=== PATIENT | female | born 1950 | race Caucasian/White ===

== ENCOUNTER → 2016-07-19 | Outpatient (CLI) | payer BC ==
[~2016-07-19] MED LIST: ACET-1311 PO; ALBUAER INH; ALPR-411 PO; AMOX875T PO; ANTI NAUSEA MED; ATOR10TA82 PO; BIOT1CAP4 PO; CALC-279 PO; CALC-338 PO; CMP/10 PO; COEN1CAP17 PO; CYAN100020 PO; DPH/ PO; DRGTP25 TD; DTR5 PO; ENOX1INJ11 SQ; ENOX60IN SQ; ESCI10TA17 PO; HYDR-5688 PO; IMD/2 PO; LVNIS80 SQ; MAGN400T6 PO; METH1TAB81 PO; MISCCAP77 PO; MULTTAB58 PO; NRN300 PO; OMEP20CA59 PO; OXYC1CAP5 PO; OXYSR10 PO; PHYT100T PO; PRED10TA PO; PSYL0.524 PO; RXC5 PO; TEMA-79 PO; ULT50 PO; VNTHFA/IN INH; WARF2.5T8 PO; WARF2TAB8 PO; WARF5TAB7; WARF5TAB7 PO
--- NOTE | 2016-07-19 12:20 | DIAGNOSTIC IMAGING REPORT ---
LEFT WRIST 4 VIEWS HISTORY: M10.9 Acute gouty [id number] COMPARISON: None. FINDINGS: The bones are osteopenic. Diffuse soft tissue swelling. Chondrocalcinosis. No acute fracture or dislocation. No bony erosions identified. Severe osteoarthritis at the first carpometacarpal joint. The scaphoid appears intact. No radiopaque foreign bodies. IMPRESSION: 1. Diffuse soft tissue swelling within the left wrist. 2. Chondrocalcinosis. 3. Osteopenia. Electronically signed by: Orlin Alfonso M.D. 07/19/2016 12:19 PM
[2016-07-19 12:26] LABS: BASO % 0.1 %; BASO ABS # 0.01 K/uL (0-0.2); COMPLETE YES; EOS % 0.7 %; HEMATOCRIT 30.1 % (37-47); IG% 0.3 %; LYMPH % 19.3 %; LYMPH ABS # 1.76 K/uL (1.2-3.4); MEAN CELL VOLUME 100.3 fL (80-100); MEAN CORPUSCULAR HEMOGLOBIN 33.7 pg (25-34); MEAN CORPUSCULAR HGB CONC 33.6 g/dl (32-36); MEAN PLATELET VOLUME 10.1 fL (7.4-10.4); MONO % 10.1 %; NEUT % 69.5 %; PLATELET COUNT 184 K/uL (130-400); WHITE BLOOD COUNT 9.14 K/uL (4.8-10.8)
[2016-07-19 13:47] LABS: BLOOD UREA NITROGEN 11 mg/dl (7-18); BUN/CREATININE RATIO 15.8 (10-20); CALCIUM 9.4 mg/dl (8.5-10.1); CARBON DIOXIDE 26 mmol/L (21-32); CHLORIDE 100 mmol/L (98-107); CREATININE 0.71 mg/dl (0.60-1.20); GLUCOSE 115 mg/dl (70-99); POTASSIUM 3.7 mmol/L (3.5-5.1); SODIUM 138 mmol/L (136-145); URIC ACID 4.3 mg/dl (2.6-7.2)
== END | disposition home or self-care (01) ==
LOC: C.RAD1850 11:21
PROVIDERS: ATTEND Internal Medicine
DX: M10.9 Gout, unspecified (principal); M11.232 Other chondrocalcinosis, left wrist; M85.80 Other specified disorders of bone density and structure, unspecified site

== ENCOUNTER → 2016-09-28 | Outpatient (CLI) | payer BC ==
[~2016-09-28] MED LIST changes: -ATOR10TA82 PO; +ATOR10TA88 PO; -COEN1CAP17 PO; -WARF2TAB8 PO; -WARF5TAB7 PO
--- NOTE | 2016-09-28 16:50 | DIAGNOSTIC IMAGING REPORT ---
RIGHT PELVIS/UNILATERAL HIP 2-3VIEWS CLINICAL HISTORY: RIGHT HIP PAIN Right COMPARISON STUDY: Head CT 06/21/2016. FINDINGS: No fracture or dislocation within the pelvis or hips. There is mild osteoarthritis within the bilateral hips and sacroiliac joints. The sacrum appears intact. There is a surgical clip overlying the sacrum. Multiple pelvic phleboliths. IMPRESSION: No fracture or dislocation within the pelvis or hips. Mild bilateral hip osteoarthritis. Electronically signed by: Orlin Alfonso M.D. 09/28/2016 4:49 PM Dictated Date/Time: 09/28/2016 4:46 PM
--- NOTE | 2016-09-28 17:10 | DIAGNOSTIC IMAGING REPORT ---
PA CHEST WITH RIGHT-SIDED RIB SERIES CLINICAL HISTORY: Right chest wall pain. FINDINGS: A PA chest radiograph with 4 additional views may right-sided rib series is compared to study dated 12/05/2013. Correlation is made with chest CT dated 06/03/2016. A right internal jugular central venous infusion port has been placed. The cardiomediastinal silhouette is unremarkable. Emphysema and chronic interstitial thickening are unchanged. There is apical scarring. No airspace consolidation or pleural effusion is identified. No pneumothorax is seen. The skeletal structures are osteopenic. There is no radiographic evidence of acute/distracted right-sided rib fracture as clinically queried. The remainder of the bony thorax is grossly intact. Mild degenerative change and scoliosis is identified in the thoracic spine. IMPRESSION: 1. Emphysema with no acute cardiopulmonary abnormality. 2. There is no radiographic evidence of acute/distracted right-sided rib fracture as clinically queried. Electronically signed by: Dom Sims M.D. 09/28/2016 5:09 PM Dictated Date/Time: 09/28/2016 5:05 PM
== END | disposition home or self-care (01) ==
LOC: C.RAD1850 16:09
PROVIDERS: ATTEND Internal Medicine
DX: M25.551 Pain in right hip (principal); J43.9 Emphysema, unspecified; Z51.81 Encounter for therapeutic drug level monitoring; Z79.01 Long term (current) use of anticoagulants

== ENCOUNTER → 2016-10-04 | Outpatient (CLI) | payer BC ==
[~2016-10-04] MED LIST changes: +ATOR10TA82 PO; -ATOR10TA88 PO
[2016-10-04 14:24] VITALS: BP 128/74; PULSE 78; TEMP 36.7; O2SAT 96
[2016-10-04 15:03] VITALS: BP 128/74; PULSE 78; TEMP 36.7; O2SAT 96
[2016-10-04 16:03] LABS: URINE APPEARANCE CLOUDY (CLEAR); URINE BILIRUBIN NEG (NEG); URINE COLOR YELLOW; URINE EPITHELIAL CELL AUTO >30 /lpf (0-5); URINE NITRITE NEG (NEG); URINE PH 5.5 (4.5-7.5); URINE SPECIFIC GRAVITY 1.016 (1.000-1.030); UROBILINOGEN NEG (NEG); ZZUR CULT IF INDIC CLEAN CATCH YES
[2016-10-04 16:17] LABS: MANUAL MICROSCOPIC REQUIRED? NO; REVIEW REQ? YES
--- NOTE | 2016-10-04 17:03 | Radiation Oncology Follow-Up ---
Radiation Oncology Follow-Up Date of Visit Oct 04, 2016. 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 One left pelvic node identified and was negative for metastatic disease 04/05/2016 Status post FNA of right external iliac lymph node positive for metastatic carcinoma with squamous differentiation 07/12/2016 Status post completion of radiation therapy external beam treatment 5500 cGy. She received 3 HDR treatments which were 400 cGy each. The final treatment was 08/29/2016. Last Edited By: Teresa Sanchez on Oct 04, 2016 16:44 History of Present Illness Ms. Monroy is a 65-year-old female, 2 para 2-0-0-2, who presented with postmenopausal bleeding in August consisting of vaginal spotting and pinkish tinge on wiping. She was seen by her local interactive media project manager, Dr. Nelda Ferro and done 11/10/2015 underwent an endometrial biopsy. This revealed an adenocarcinoma with mucinous and endometrioid features, FIGO grade 1 of 3. There was intact expression of all 4 proteins present within the carcinoma and a 4 not consistent with microsatellite instability. Case: [id number]. The patient was seen at [facility] for evaluation and surgical treatment recommendations. They discussed the treatment option of a total laparoscopic hysterectomy with bilateral salpingo-oophorectomy and possible pelvic lymphadenectomy. The patient was seen by Dr. Schultz and agreed to proceed with this treatment. On 12/29/2015 the patient underwent a robotic-assisted hysterectomy and bilateral salpingo-oophorectomy, lysis of adhesions, lymphadenectomy, rigid proctoscopy and cystoscopy. The intraoperative findings included a large bowel adherent to the posterior surface of a friable and edematous uterine serosa. A pocket of pus was encountered. On frozen section the tumor was deeply walter invasive. The surgical pathology report revealed no involvement of the cervix. The hysterectomy specimen confirmed an endometrioid adenocarcinoma with extensive squamous differentiation, FIGO grade 1. The tumor measured 2.3 x 2.0 x 1.6 cm posteriorly and 2.3 x 2.0 x 1.8 cm anteriorly. The tumor invaded the underlying myometrium to a depth of greater than 50% of the myometrial thickness. Examination of the left ovary and left fallopian tube showed no tumor involvement. Examination of the right ovary and right fallopian tube however did show evidence of metastatic carcinoma. 3 lymph nodes from the right pelvis were identified and negative for metastatic carcinoma. 3 lymph nodes from the left pelvis were identified and negative for metastatic carcinoma. There was evidence of lymphovascular invasion. The final AJCC pathologic stage was therefore pT3a pN0. Accession #: [id number]. Patient return to discuss these findings with Dr. Schultz postoperatively. He discussed the pathologic finding and extent of disease. We discussed the adjuvant treatment options. He recommended adjuvant treatment consisting of carboplatin and paciltaxel administered for 3 cycles followed by pelvic radiation followed by additional 3 cycles of chemotherapy. The patient wished to be treated closer to home and was therefore referred to Dr. Deion Robles. He also recommended staging workup consisting of a CT scan of the chest abdomen and pelvis. These were performed on 02/15/2016. CT scan of the chest showed no definitive evidence of metastatic disease within the chest. A stable 1.1 cm right paratracheal lymph node was noted with recommended continued observation. A new 4 mm nodule within the lingula was felt to be likely benign. CT scan of the abdomen and pelvis showed pathologically enlarged and heterogeneously enhancing lymph nodes seen in the lower retroperitoneal space and the iliac chain bilaterally that were felt to be highly concerning for metastatic disease. There were no additional foci of metastatic disease suspected the abdomen or pelvis. The uterus was surgically absent. A simple-appearing cystic structure was noted in the left adnexa and may represent a peritoneal inclusion cyst. There was hepatomegaly and severe steatosis. The patient was seen by Dr. Terrence Robles in referral. He agreed with the recommendation for adjuvant chemotherapy and recommended consideration of 6 cycles. He was not convinced of the role for adjuvant radiation but agreed to a radiation consultation after cycle 4. He recommended beginning systemic chemotherapy and the patient was started on Taxol and carboplatin IV every 3 weeks. The patient will complete her fourth cycle on June 15. He arranged for the patient to be seen in referral today for evaluation and discussion of the role of adjuvant radiation in this setting. It is for this reason the patient is seen in referral today. If the patient is to receive adjuvant radiation she will complete her course of chemotherapy following the completion of the radiation. Interim History She completed 6 cycles of chemotherapy. She tolerated this poorly. Decision was made that she would have radiation therapy and would not follow the "sandwich technique". She was taken back to the operating room and underwent a node dissection which was negative in March. When evaluating and setting her up for her radiation a pelvic node was noted. She was sent for an evaluation and had an FNA 07/13/2016. This was positive for malignant cells. This area had additional boost therapy. She completed her radiation 2016. She received external beam therapy as well as 3 HDR treatments. She isn' t steadily recuperating since completion of therapy. At the end of treatment she did have difficulty with diarrhea. This has greatly improved and she uses Metamucil daily. She has noticed a weight urinary urgency and slowing of the stream. She has had more frequency and nocturia 4-5 times per night. She has had follow-up with medical oncology. There is discussion of follow-up scanning as well as laboratory studies laboratory studies were scheduled for October and follow-up appointment in November. She does not currently have a follow-up appointment with Dr. Schultz. She has not been using the vaginal dilator. Allergies Coded Allergies: Cat Dander (Verified Allergy, Mild, Sneezing, 06/03/16) Home Medications Scheduled Atorvastatin (Lipitor), 10 MG PO QAM Biotin (Biotin), 2,500 MCG PO QAM Calcium Citrate-Vitamin D (Citracal/Vitamin D), 2 TAB PO QAM Cyanocobalamin (Vitamin B12), 10,000 MCG PO QAM Diphenoxylate W/ Atropine (Lomotil), 2 TAB PO AM and then prn Escitalopram (Lexapro), 10 MG PO QAM Magnesium Oxide (Mag-Ox), 400 MG PO DAILY Methylprednisolone (Medrol), 4 MG PO DIRECTED Multiple Vitamin (Multivitamin), 1 TAB PO QAM Omeprazole (Prilosec), 20 MG PO QAM Phytonadione (Vitamin K), 100 MCG PO UD Probiotic Product (Probiotic & Acidophilus F), 1 CAP PO QAM Psyllium (Metamucil), 2 CAP PO DIRECTED Warfarin Sod (Jantoven), 2.5 MG PO DIRECTED Scheduled PRN Acetaminophen (Tylenol), 650 MG PO Q4 PRN for Pain Albuterol (Proventil Hfa), 2 PUFFS INH QID PRN for SOB/Wheezing Alprazolam (Xanax), 0.5 MG PO DAILY PRN for Anxiety Loperamide Hcl (Imodium), 2 MG PO DAILY PRN for DIARRHEA Temazepam (Restoril), 15 MG PO HS PRN for Sleep Miscellaneous Medications [anti nausea med] Review of Systems Gastrointestinal: GI Comments: diarrhea better since taking metamucil tablets daily Oral: Other Oral Symptoms: "sore throat since getting over the shakira " Respiratory: Symptoms: Moist Cough, SOB With Exertion, Productive Cough Sputum Character: clear Urinary: Comments: had some difficulty urinating when had the flu , getting better Skin: Symptoms: No Problems Physical Exam Vital Signs Date Time Temp Pulse Resp B/P Pulse Ox O2 Delivery O2 Flow Rate FiO2 10/04/16 15:03 36.7 78 16 128/74 96 10/04/16 14:24 36.7 78 16 128/74 96 Pain: Pain Onset: 2 weeks ago Side: Right Patient Pain Scale: 0 - 10 Initial Pain Intensity: 1.0 Fatigue: None General Appearance: no apparent distress Eyes: normal inspection, EOMI ENT: normal ENT inspection, hearing grossly normal Respiratory/Chest: lungs clear, no respiratory distress, no accessory muscle use Cardiovascular: regular rate, rhythm, no gallop, no murmur Abdomen: non tender, soft, no organomegaly Genitourinary - Female: Normal external genitalia. There is an area of narrowing just at the inside of the introitus. There is mild foreshortening. There is no erythema or edema. There is no vaginal discharge or bleeding. There are no visible or palpable lesions. With very slow careful insertion I was able to use a regular size speculum. Bimanual examination revealed no masses or tenderness. Extremities: no pedal edema Neurologic/Psychiatric: no motor/sensory deficits, alert, normal mood/affect Skin: warm/dry Lymphatic: no adenopathy Laboratory Studies Test 07/19/16 12:00 08/23/16 10:15 2/14/17 09:45 09/07/16 09:14 Uric Acid 4.3 mg/dl (2.6-7.2) Est Creatinine Clear Calc Drug Dose 84.4 ml/min 75.4 ml/min White Blood Count 4.49 K/uL (4.8-10.8) Red Blood Count 3.13 M/uL (4.2-5.4) Hemoglobin 10.3 g/dL (12.0-16.0) Hematocrit 30.6 % (37-47) Mean Corpuscular Volume 97.8 fL (80-100) Mean Corpuscular Hemoglobin 32.9 pg (25-34) Mean Corpuscular Hemoglobin Concent 33.7 g/dl (32-36) Platelet Count 167 K/uL (130-400) Mean Platelet Volume 10.4 fL (7.4-10.4) Neutrophils (%) (Auto) 74.6 % Lymphocytes (%) (Auto) 6.7 % Monocytes (%) (Auto) 13.6 % Eosinophils (%) (Auto) 4.9 % Basophils (%) (Auto) 0.0 % Neutrophils # (Auto) 3.35 K/uL (1.4-6.5) Lymphocytes # (Auto) 0.30 K/uL (1.2-3.4) Monocytes # (Auto) 0.61 K/uL (0.11-0.59) Eosinophils # (Auto) 0.22 K/uL (0-0.5) Basophils # (Auto) 0.00 K/uL (0-0.2) RDW Standard Deviation 53.2 fL (36.4-46.3) RDW Coefficient of Variation 15.0 % (11.5-14.5) Immature Granulocyte % (Auto) 0.2 % Immature Granulocyte # (Auto) 0.01 K/uL (0.00-0.02) Sodium Level 141 mmol/L (136-145) Potassium Level 3.8 mmol/L (3.5-5.1) Chloride Level 104 mmol/L (98-107) Carbon Dioxide Level 29 mmol/L (21-32) Anion Gap 8.0 mmol/L (3-11) Blood Urea Nitrogen 9 mg/dl (7-18) Creatinine 0.66 mg/dl (0.60-1.20) Estimated GFR () 106.7 Estimated GFR (Non- 92.1 BUN/Creatinine Ratio 13.5 (10-20) Random Glucose 96 mg/dl (70-99) Calcium Level 8.6 mg/dl (8.5-10.1) Total Bilirubin 0.3 mg/dl (0.2-1) Aspartate Amino Transferase (AST) 23 U/L (15-37) Alanine Aminotransferase (ALT) 32 U/L (12-78) Alkaline Phosphatase 81 U/L (45-117) Total Protein 7.1 gm/dl (6.4-8.2) Albumin 3.4 gm/dl (3.4-5.0) Globulin 3.7 gm/dl (2.5-4.0) Albumin/Globulin Ratio 0.9 (0.9-2) Triglycerides Level 160 mg/dl (0-150) Cholesterol Level 179 mg/dl (0-200) HDL Cholesterol 70 mg/dl LDL Cholesterol, Calculated 77 mg/dl VLDL Cholesterol, Calculated 32 mg/dl Cholesterol/HDL Ratio 2.6 Vitamin B12 Level 234 pg/mL (211-911) 25-Hydroxy Vitamin D Total 37.1 ng/ml (30-100) POC Prothrombin Time INR 5.3 (0.9-1.1) Test 09/07/16 09:29 09/11/16 11:34 10/04/16 15:35 White Blood Count 4.42 K/uL (4.8-10.8) Red Blood Count 3.38 M/uL (4.2-5.4) Hemoglobin 11.2 g/dL (12.0-16.0) Hematocrit 33.8 % (37-47) Mean Corpuscular Volume 100.0 fL (80-100) Mean Corpuscular Hemoglobin 33.1 pg (25-34) Mean Corpuscular Hemoglobin Concent 33.1 g/dl (32-36) Platelet Count 147 K/uL (130-400) Mean Platelet Volume 10.7 fL (7.4-10.4) Neutrophils (%) (Auto) 70.8 % Lymphocytes (%) (Auto) 10.9 % Monocytes (%) (Auto) 13.8 % Eosinophils (%) (Auto) 4.3 % Basophils (%) (Auto) 0.2 % Neutrophils # (Auto) 3.13 K/uL (1.4-6.5) Lymphocytes # (Auto) 0.48 K/uL (1.2-3.4) Monocytes # (Auto) 0.61 K/uL (0.11-0.59) Eosinophils # (Auto) 0.19 K/uL (0-0.5) Basophils # (Auto) 0.01 K/uL (0-0.2) RDW Standard Deviation 55.3 fL (36.4-46.3) RDW Coefficient of Variation 15.2 % (11.5-14.5) Immature Granulocyte % (Auto) 0.0 % Immature Granulocyte # (Auto) 0.00 K/uL (0.00-0.02) Sodium Level 142 mmol/L (136-145) Potassium Level 3.9 mmol/L (3.5-5.1) Chloride Level 104 mmol/L (98-107) Carbon Dioxide Level 28 mmol/L (21-32) Anion Gap 10.0 mmol/L (3-11) Blood Urea Nitrogen 8 mg/dl (7-18) Creatinine 0.73 mg/dl (0.60-1.20) Estimated GFR () 99.5 Estimated GFR (Non- 85.8 BUN/Creatinine Ratio 11.0 (10-20) Random Glucose 102 mg/dl (70-99) Calcium Level 8.8 mg/dl (8.5-10.1) Total Bilirubin 0.3 mg/dl (0.2-1) Aspartate Amino Transferase (AST) 28 U/L (15-37) Alanine Aminotransferase (ALT) 41 U/L (12-78) Alkaline Phosphatase 84 U/L (45-117) Lactate Dehydrogenase 189 U/L (84-246) Total Protein 7.5 gm/dl (6.4-8.2) Albumin 3.6 gm/dl (3.4-5.0) Globulin 3.9 gm/dl (2.5-4.0) Albumin/Globulin Ratio 0.9 (0.9-2) POC Prothrombin Time INR 1.7 (0.9-1.1) Urine Color YELLOW Urine Appearance CLOUDY (CLEAR) Urine pH 5.5 (4.5-7.5) Urine Specific Baird 1.016 (1.000-1.030) Urine Protein NEG (NEG) Urine Glucose (UA) NEG (NEG) Urine Ketones NEG (NEG) Urine Occult Blood 2+ (NEG) Urine Nitrite NEG (NEG) Urine Bilirubin NEG (NEG) Urine Urobilinogen NEG (NEG) Urine Leukocyte Esterase LARGE (NEG) Assessment & Plan Plan: Continue follow-up with medical oncology. She has for laboratory studies on October 24 and a follow-up appointment on November 16. Her case was discussed with Dr. Emerson and we will schedule her for a PET scan in 2 months. For the urinary symptoms a urinalysis and culture were ordered. She'll be notified as to results. She'll be treated accordingly. I've given her a small and medium dilator. We asked her to go ahead and use the small dilator first and then the medium. She can do this for 5 minutes with each size dilator twice a week. She was in agreement to try using the dilator. Dr. Schultz's office will be called an appointment will be arranged for her to be seen in 3 months. We asked her to return to our office in 6 months. She will call if she has any questions or concerns in the interim. Today we completed a cancer survivorship care plan. We reviewed the information and there will be some corrections added to the permanent comments. She was not given sandwich technique therapy she also underwent the lymph node dissection and then the FNA of the node. This information has been added. She'll be notified as to results of the PET scan. Total Time In Follow-Up I spent 25 minutes speaking to the patient performing examination. I spent 20 minutes reviewing information, completing the survivorship document, and completing this note. Copy To Deion Robles D.O.; Tutu Schultz M.D.; Zeke Huff M.D.
--- NOTE | 2016-11-17 08:53 | CODING QUERY MEDICAL NECESSITY ---
CQSUPPORTING DIAGNOSIS NEEDED A supporting diagnosis is required for the test/procedure performed on this patient in order for us to be reimbursed by the patient's insurance. Please provide a supporting diagnosis for the following test/procedure listed below next to the test name along with your signature. *If there is no additional diagnosis for this patient that would support the following test/procedure please document that below next to the test/procedure. Test(s)/Procedure(s) that require a supporting diagnosis: DOS 10/04/16 URINE CULTURE ORDERED BY NICHOL TRAN Provider Signature: Date: Thank you Jemima Qiu Health Information Management Once completed, please kindly fax back to [phone] For questions please call [phone]
== END | disposition home or self-care (01) ==
LOC: C.ONC 14:11
PROVIDERS: ATTEND Physician Assistant Medical
DX: Z08 Encounter for follow-up examination after completed treatment for malignant neoplasm (principal); Z92.3 Personal history of irradiation; Z85.42 Personal history of malignant neoplasm of other parts of uterus

== ENCOUNTER → 2016-10-10 | Outpatient (CLI) | payer BC ==
[~2016-10-10] MED LIST changes: -ATOR10TA82 PO; +ATOR10TA88 PO; -ENOX1INJ11 SQ
--- NOTE | 2016-10-11 12:42 | MAMMOGRAPHY REPORT ---
BILATERAL DIGITAL SCREENING MAMMOGRAM WITH CAD: 10/10/2016 CLINICAL HISTORY: Routine screening. Patient has no complaints. TECHNIQUE: Bilateral CC and MLO views were obtained. Current study was also evaluated with a Comput er Aided Detection (CAD) system. COMPARISON: Comparison is made to exams dated: 10/08/2015 mammogram, 10/06/2013 mammogram, 09/13/2012 m ammogram, 09/13/2011 mammogram - [facility], 02/08/2009, and 08/10/2008. BREAST COMPOSITION: There are scattered areas of fibroglandular density in both breasts. FINDINGS: There are a few benign coarse calcifications in the breasts. No suspicious mass, architec tural distortion or cluster of microcalcifications is seen. IMPRESSION: ACR BI-RADS CATEGORY 1: NEGATIVE There is no mammographic evidence of malignancy. A 1 year screening mammogram is recommended. The p atient will receive written notification of the results. Approximately 10% of breast cancers are not detected with mammography. A negative mammographic repor t should not delay biopsy if a clinically suggestive mass is present. Marla Gray M.D. ay/:10/10/2016 16:37:05 Excavation Laborer: Alicia MTZ(Clif)(M), [facility] letter sent: Normal 1/2 BI-RADS Code: ACR BI-RADS Category 1: Negative
== END | disposition home or self-care (01) ==
LOC: C.MAMM 09:56
PROVIDERS: ATTEND Internal Medicine
DX: Z12.31 Encounter for screening mammogram for malignant neoplasm of breast (principal)

== ENCOUNTER → 2016-10-19 | Outpatient (CLI) | payer BC ==
[~2016-10-19] MED LIST changes: +ATOR10TA82 PO; -ATOR10TA88 PO
== END | disposition home or self-care (01) ==
LOC: C.LABSPEC 15:50
PROVIDERS: ATTEND Physician Assistant
DX: R39.9 Unspecified symptoms and signs involving the genitourinary system (principal); Z51.81 Encounter for therapeutic drug level monitoring; Z79.01 Long term (current) use of anticoagulants

== ENCOUNTER 2016-10-22 09:38 | Emergency (ER) | payer BC ==
[~2016-10-22] VITALS: Ht 165.1 cm; Wt 61.6 kg
[~2016-10-22 09:38] MED LIST changes: -AMOX875T PO; -CALC-279 PO; -CMP/10 PO; -DRGTP25 TD; -DTR5 PO; -ENOX60IN SQ; -HYDR-5688 PO; -LVNIS80 SQ; -METH1TAB81 PO; -NRN300 PO; -OXYC1CAP5 PO; -OXYSR10 PO; -PRED10TA PO; -RXC5 PO; -ULT50 PO; -VNTHFA/IN INH; -WARF5TAB7
[2016-10-22 09:47] VITALS: TEMP 36.5; Ht 165.1 cm; Wt 61.6 kg
[2016-10-22] MEDS ORDERED: SODIUM CHLORIDE 0.9% 1000ML 1,000 ML IV STA (10:14)
[2016-10-22] MEDS ORDERED: SODIUM CHLORIDE 0.9% 500ML 500 ML IV STA (10:14)
[2016-10-22] MEDS ORDERED: ONDANSETRON INJ 2 MG/ML 2 ML VIAL IV STA (10:14)
[2016-10-22] MEDS ORDERED: MoRPHine SULFATE 4 MG/ML 1 ML CARP\\VIAL IV STA ×2 (10:14→12:40)
[2016-10-22] MEDS ORDERED: OPTIRAY 320 IV PRN (10:30)
[2016-10-22 10:32] LABS: BASO % 0.1 %; BASO ABS # 0.01 K/uL (0-0.2); COMPLETE YES; EOS % 2.8 %; HEMATOCRIT 28.9 % (37-47); IG% 0.3 %; LYMPH % 5.8 %; LYMPH ABS # 0.56 K/uL (1.2-3.4); MEAN CELL VOLUME 95.4 fL (80-100); MEAN CORPUSCULAR HEMOGLOBIN 32.3 pg (25-34); MEAN CORPUSCULAR HGB CONC 33.9 g/dl (32-36); MEAN PLATELET VOLUME 10.5 fL (7.4-10.4); MONO % 12.7 %; NEUT % 78.3 %; PLATELET COUNT 123 K/uL (130-400); RED BLOOD COUNT 3.03 M/uL (4.2-5.4); WHITE BLOOD COUNT 9.62 K/uL (4.8-10.8)
[2016-10-22] MEDS ORDERED: ULT50 PO (10:47)
[2016-10-22] MEDS ORDERED: CMP/10 PO (10:47)
[2016-10-22 10:49] LABS: BUN/CREATININE RATIO 9.1 (10-20); CALCIUM 8.8 mg/dl (8.5-10.1); MAGNESIUM 1.6 mg/dl (1.8-2.4); POTASSIUM 3.6 mmol/L (3.5-5.1)
--- NOTE | 2016-10-22 11:18 | DIAGNOSTIC IMAGING REPORT ---
L-SPINE MIN 4 VIEWS ROUTINE CLINICAL HISTORY: Lumbar pain. Right radiculopathy. COMPARISON: PET/CT June 21, 2016 FINDINGS: Oral contrast is noted within the stomach and small bowel. No lumbar spine fracture or subluxation is identified. No suspicious lesions are identified by CT. Mild multilevel degenerative disc disease and facet arthrosis is present. Bowel gas pattern is normal. IMPRESSION: 1. No acute lumbar spine fracture or subluxation. 2. Mild multilevel degenerative disc disease and facet arthrosis. Electronically signed by: Cristian Osborn M.D. 10/22/2016 11:16 AM Dictated Date/Time: 10/22/2016 11:13 AM
--- NOTE | 2016-10-22 13:39 | DIAGNOSTIC IMAGING REPORT ---
CT OF THE ABDOMEN AND PELVIS WITH CONTRAST CLINICAL HISTORY: Right lower quadrant pain. Hip pain. Endometrial cancer. COMPARISON STUDY: CT of the abdomen and pelvis February 15, 2016 and PET/CT June 21, 2016. TECHNIQUE: Following IV administration of 93 mL of Optiray-320, axial images of the abdomen and pelvis were obtained from the lung bases to the proximal femurs. Images were reviewed in the axial, sagittal, and coronal planes. IV contrast was administered without complication. Oral contrast was administered. CT DOSE: 316.87 mGy.cm FINDINGS: Visualized portions of the lower chest demonstrate interval development of an 8 mm lingular nodule shown image 27 of 461. This is new since PET/CT of June 21, 2016. There is fatty infiltration of the liver. The spleen, adrenal glands, left kidney and pancreas are normal. There has been interval development of moderate right hydroureteronephrosis. The right ureter is dilated to the level of the right hemipelvis where there is necrotic right internal iliac lymphadenopathy. This has progressed since PET/CT of June 21, 2016. A right pelvic sidewall necrotic mass has increased in size. It now measures 3.4 x 2.2 cm. It previously measured 2.8 x 2.2 cm. There has been interval development of a necrotic mass likely arising from the vaginal cuff that measures approximately 4.6 x 3.8 cm. Pelvic infiltration is noted. There is moderate bladder wall thickening with adjacent infiltration. A left external iliac node is unchanged since PET/CT of June 21, 2016. Measures 1.4 x 1.3 cm. Note is made of an aortocaval necrotic node measures 2.2 x 1.8 cm. This is slightly increased in size since prior exam. IMPRESSION: 1. 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 Interval development of moderate right hydroureteronephrosis due to obstruction of the distal right ureter by the necrotic lymphadenopathy or vaginal cuff mass. 2. No bowel obstruction. 3. New 8 mm lingular nodule suggestive of metastatic disease. Electronically signed by: Cristian Osborn M.D. 10/22/2016 1:37 PM Dictated Date/Time: 10/22/2016 1:23 PM
[2016-10-22] MEDS ORDERED: HYDROCODONE/ACETAMOPHEN 5/325MG TAB PO STA (15:27)
[2016-10-22] MEDS ORDERED: NORCO 5/325MG HOME PACK PO ONE (15:30)
[2016-10-22 15:51] VITALS: BP 107/57; PULSE 88; O2SAT 98
[2016-10-22] MEDS ORDERED: HYDR-5688 PO (15:53)
--- NOTE | 2016-10-22 17:13 | EMERGENCY ROOM VISIT NOTE ---
History Report prepared by Dorina: Darleen Kirk Under the Supervision of: Dr. Valery Ramos M.D. First contact with patient: 10:00 Chief Complaint: PAIN (GENERALIZED) Stated Complaint: RIGHT SIDE ABDOMEN,BACK AND LEG PAIN History of Present Illness The patient is a 65 year old female who presents to the Emergency Room with complaints of persistent right hip pain starting 3 weeks ago. One month ago, she fell into a door frame and injured her right hip. She was on prednisone for 1 week which relieved her pain. 3 weeks ago she was taken off of the prednisone. She was not tapered off. She began to experience the hip pain since then. The pain radiates down the back of her leg and to the front at time. 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 She reports fever, hematuria and decreased appetite. She has a history of endometrial cancer. She received her last dose chemo in June and radiation therapy in August. She was recently on 2 rounds of antibiotics for a UTI. She has not been urinating as much as she thinks she should. She is on Coumadin for a recent pulmonary embolism. She has had a hysterectomy. Source of History: patient Onset: 3 weeks ago Position: pelvis (right) Quality: other (pain) Timing: other (persistent) Associated Symptoms: + fevers, + urinary symptoms Note: Pt reports leg pain, decreased appetite, hematuria. Review of Systems See HPI for pertinent positives & negatives. A total of 10 systems reviewed and were otherwise negative. Past Medical & Surgical Medical Problems: (1) Arthritis (2) Morton's esophagus (3) Bronchitis (4) section (5) Chest pain, rule out acute myocardial infarction (6) Endometrial cancer (7) Endoscopy (8) Gastroesophageal reflux disease (9) Pneumonia Family History Cancer Gallbladder disease Heart disease Hypertension Lung disease Social History Smoking Status: Never Smoker Alcohol Use: occasionally Drug Use: none Marital Status: Housing Status: lives with significant other Occupation Status: retired Current/Historical Medications Scheduled Atorvastatin (Lipitor), 10 MG PO QAM Biotin (Biotin), 2,500 MCG PO QAM Calcium Citrate-Vitamin D (Citracal/Vitamin D), 2 TAB PO QAM Cyanocobalamin (Vitamin B12), 10,000 MCG PO QAM Escitalopram (Lexapro), 10 MG PO QAM Magnesium Oxide (Mag-Ox), 400 MG PO DAILY Multiple Vitamin (Multivitamin), 1 TAB PO QAM Omeprazole (Prilosec), 20 MG PO QAM Phytonadione (Vitamin K), 100 MCG PO DAILY Probiotic Product (Probiotic & Acidophilus F), 1 CAP PO QAM Psyllium (Metamucil), 2 CAP PO DIRECTED Warfarin Sod (Jantoven), 2.5 MG PO DAILY Scheduled PRN Albuterol (Proventil Hfa), 2 PUFFS INH QID PRN for SOB/Wheezing Alprazolam (Xanax), 0.5 MG PO DAILY PRN for Anxiety Hydrocodone/Acetaminophen 5MG/325MG ([place] 5MG/325MG), 1-2 TABLET PO Q6 PRN for Pain Loperamide Hcl (Imodium), 2 MG PO DAILY PRN for DIARRHEA Prochlorperazine Maleate (Prochlorperazine Maleate), 10 MG PO UD PRN for Nausea Temazepam (Restoril), 15 MG PO HS PRN for Sleep Tramadol HCl (Tramadol HCl), 50 MG PO UD PRN for Pain Allergies Coded Allergies: Cat Dander (Verified Allergy, Mild, Sneezing, 10/22/16) Physical Exam Vital Signs Date Time Temp Pulse Resp B/P Pulse Ox O2 Delivery O2 Flow Rate FiO2 10/22/16 15:51 88 16 107/57 98 10/22/16 14:21 87 110/69 99 Room Air 10/22/16 12:46 92 18 118/62 99 Nasal Cannula 2.0 10/22/16 11:27 99 120/66 96 Nasal Cannula 2.0 10/22/16 09:47 36.5 104 18 96/59 95 Room Air Physical Exam Vital signs reviewed. General: Generally well-appearing, in no significant distress. HEENT: No scleral icterus, PERRLA, neck supple. Atraumatic. Cardiovascular: Regular rate and rhythm, no extra sounds. Pulmonary: Clear to auscultation bilaterally, normal work of breathing. Abdomen: Soft, nondistended, positive bowel sounds. Tenderness to palpation of the right inguinal region. Musculoskeletal: Atraumatic, no peripheral edema. Pain with straight leg raise. Significant discomfort with resistance of straight leg raise. Nontender to palpation of lumbar spine. Neurologic: Patient awake alert and oriented x 3, full strength in all 4 extremities. Cranial nerves 2 through 12 grossly intact. Skin: Warm, dry, no rash Medical Decision & Procedures ER Provider Diagnostic Interpretation: X-ray results as stated below per interpretation by me and the radiologist. Radiology results as stated below per my review and radiologist interpretation: L-SPINE MIN 4 VIEWS ROUTINE CLINICAL HISTORY: Lumbar pain. Right radiculopathy. COMPARISON: PET/CT June 21, 2016 FINDINGS: Oral contrast is noted within the stomach and small bowel. No lumbar spine fracture or subluxation is identified. No suspicious lesions are identified by CT. Mild multilevel degenerative disc disease and facet arthrosis is present. Bowel gas pattern is normal. IMPRESSION: 1. No acute lumbar spine fracture or subluxation. 2. Mild multilevel degenerative disc disease and facet arthrosis. Electronically signed by: Cristian Osborn M.D. 10/22/2016 11:16 AM Dictated Date/Time: 10/22/2016 11:[address] OF THE ABDOMEN AND PELVIS WITH CONTRAST CLINICAL HISTORY: Right lower quadrant pain. Hip pain. Endometrial cancer. COMPARISON STUDY: CT of the abdomen and pelvis February 15, 2016 and PET/CT June 21, 2016. TECHNIQUE: Following IV administration of 93 mL of Optiray-320, axial images of the abdomen and pelvis were obtained from the lung bases to the proximal femurs. Images were reviewed in the axial, sagittal, and coronal planes. IV contrast was administered without complication. Oral contrast was administered. CT DOSE: 316.87 mGy.cm FINDINGS: Visualized portions of the lower chest demonstrate interval development of an 8 mm lingular nodule shown image 27 of 461. This is new since PET/CT of June 21, 2016. There is fatty infiltration of the liver. The spleen, adrenal glands, left kidney and pancreas are normal. There has been interval development of moderate right hydroureteronephrosis. The right ureter is dilated to the level of the right hemipelvis where there is necrotic right internal iliac lymphadenopathy. This has progressed since PET/CT of June 21, 2016. A right pelvic sidewall necrotic mass has increased in size. It now measures 3.4 x 2.2 cm. It previously measured 2.8 x 2.2 cm. There has been interval development of a necrotic mass likely arising from the vaginal cuff that measures approximately 4.6 x 3.8 cm. Pelvic infiltration is noted. There is moderate bladder wall thickening with adjacent infiltration. A left external iliac node is unchanged since PET/CT of June 21, 2016. Measures 1.4 x 1.3 cm. Note is made of an aortocaval necrotic node measures 2.2 x 1.8 cm. This is slightly increased in size since prior exam. IMPRESSION: 1. 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 Interval development of moderate right hydroureteronephrosis due to obstruction of the distal right ureter by the necrotic lymphadenopathy or vaginal cuff mass. 2. No bowel obstruction. 3. New 8 mm lingular nodule suggestive of metastatic disease. Electronically signed by: Cristian Osborn M.D. 10/22/2016 1:37 PM Dictated Date/Time: 10/22/2016 1:23 PM Laboratory Results 10/22/16 10:05 Red Blood Count 3.03, Mean Corpuscular Volume 95.4, Mean Corpuscular Hemoglobin 32.3, Mean Corpuscular Hemoglobin Concent 33.9, Mean Platelet Volume 10.5, Neutrophils (%) (Auto) 78.3, Lymphocytes (%) (Auto) 5.8, Monocytes (%) (Auto) 12.7, Eosinophils (%) (Auto) 2.8, Basophils (%) (Auto) 0.1, Neutrophils # (Auto ) 7.53, Lymphocytes # (Auto) 0.56, Monocytes # (Auto) 1.22, Eosinophils # (Auto ) 0.27, Basophils # (Auto) 0.01 10/22/16 10:05 Test 10/22/16 10:05 White Blood Count 9.62 K/uL (4.8-10.8) Red Blood Count 3.03 M/uL (4.2-5.4) Hemoglobin 9.8 g/dL (12.0-16.0) Hematocrit 28.9 % (37-47) Mean Corpuscular Volume 95.4 fL (80-100) Mean Corpuscular Hemoglobin 32.3 pg (25-34) Mean Corpuscular Hemoglobin Concent 33.9 g/dl (32-36) Platelet Count 123 K/uL (130-400) Mean Platelet Volume 10.5 fL (7.4-10.4) Neutrophils (%) (Auto) 78.3 % Lymphocytes (%) (Auto) 5.8 % Monocytes (%) (Auto) 12.7 % Eosinophils (%) (Auto) 2.8 % Basophils (%) (Auto) 0.1 % Neutrophils # (Auto) 7.53 K/uL (1.4-6.5) Lymphocytes # (Auto) 0.56 K/uL (1.2-3.4) Monocytes # (Auto) 1.22 K/uL (0.11-0.59) Eosinophils # (Auto) 0.27 K/uL (0-0.5) Basophils # (Auto) 0.01 K/uL (0-0.2) RDW Standard Deviation 54.1 fL (36.4-46.3) RDW Coefficient of Variation 15.5 % (11.5-14.5) Immature Granulocyte % (Auto) 0.3 % Immature Granulocyte # (Auto) 0.03 K/uL (0.00-0.02) Anion Gap 10.0 mmol/L (3-11) Est Creatinine Clear Calc Drug Dose 49.8 ml/min Estimated GFR () 68.0 Estimated GFR (Non- 58.7 BUN/Creatinine Ratio 9.1 (10-20) Calcium Level 8.8 mg/dl (8.5-10.1) Magnesium Level 1.6 mg/dl (1.8-2.4) Total Bilirubin 0.4 mg/dl (0.2-1) Direct Bilirubin 0.1 mg/dl (0-0.2) Aspartate Amino Transf (AST/SGOT) 10 U/L (15-37) Alanine Aminotransferase (ALT/SGPT) 17 U/L (12-78) Alkaline Phosphatase 101 U/L (45-117) Total Protein 7.4 gm/dl (6.4-8.2) Albumin 2.8 gm/dl (3.4-5.0) Laboratory results per my review. Medications Administered Medications (Trade) Dose Ordered Sig/Rohan Route Start Time Stop Time Status Last Admin Dose Admin Sodium Chloride (Nss 1000ml) 1,000 ml @ 125 mls/hr Q8H STAT IV 10/22/16 10:14 10/22/16 16:41 DC 10/22/16 10:40 125 MLS/HR Morphine Sulfate (MoRPHine SULFATE INJ) 4 mg NOW STAT IV 10/22/16 10:14 4/9/17 10:19 DC 10/22/16 10:39 4 MG Ondansetron HCl 4 mg 4 mg NOW STAT IV 10/22/16 10:14 10/22/16 10:19 DC 10/22/16 10:39 4 MG Sodium Chloride (Nss 500ml) 500 ml @ 999 mls/hr Q31M STAT IV 10/22/16 10:14 10/22/16 10:44 DC 10/22/16 10:40 999 MLS/HR Morphine Sulfate (MoRPHine SULFATE INJ) 4 mg NOW STAT IV 10/22/16 12:40 10/22/16 12:41 DC 10/22/16 13:27 4 MG Acetaminophen/ Hydrocodone Bitart ([place] 5/325mg Home Pack) 1 homepack UD ONCE PO 10/22/16 15:30 10/22/16 15:31 DC 10/22/16 15:57 1 HOMEPACK Acetaminophen/ Hydrocodone Bitart ([place] 5/325 Tab) 1 tab NOW STAT PO 10/22/16 15:27 10/22/16 15:28 DC 10/22/16 15:57 1 TAB Heparin Sodium (Porcine) (Heparin 100 Unit/ml 5ml Flush) 5 ml STK-MED ONCE .ROUTE 10/22/16 16:05 10/22/16 16:06 DC 10/22/16 16:24 5 ML ED Course 1006: Past medical records reviewed. The patient was evaluated in room A12B. A complete history and physical examination was performed. 1014: NSS 500 ml @ 999 mls/hr IV, Zofran Inj 4 mg IV, Morphine Sulfate 4 mg IV, NSS 1000 ml @ 125 mls/hr IV. 1240: Morphine Sulfate 4 mg IV. 1456: I am still trying to get in touch with gynecologic oncology at [facility]. 1523: I reviewed the patient's case with Dr. Schultz, [facility] - gynecologic oncology. He agrees with discharging the patient. He will follow up with the patient. 1525: Upon reevaluation, the patient appeared to have improvement of her symptoms. I discussed findings with her. She verbalized agreement of the treatment plan. She was discharged home. 1527: Acetaminophen/Hydrocodone Bitart 1 tab PO. 1530: Acetaminophen/Hydrocodone Bitart 1 homepack PO. Medical Decision Differential diagnoses: metastatic disease, lumbar radiculopathy, bony fracture , diverticulitis, appendicitis, colitis. This patient was evaluated and appeared to be in no significant distress. IV access was obtained and laboratory work was drawn. Patient was medicated with IV morphine and Zofran. She was hydrated with normal saline solution. Laboratory work is fairly unrevealing. CT scan of the abdomen and pelvis was performed and is read as above. There is concern for recurrent and metastatic disease. The patient and her were notified at the bedside of the CT findings. I did place a phone call to Dr. Schultz at [facility] of . Gynecology/oncology. He has agreed to follow the patient up this week in clinic. The patient does not wish to be transferred in order she desire hospitalization. At this point she will be discharged with [place] for pain. She will return to the ER for worsening of symptoms or any medical concerns. Consults Time Called: [phone] Consulting Physician: Dr. Schultz, [facility] - gynecologic oncology Returned Call: [phone] I reviewed the patient's case with him. He agrees with discharging the patient home. He will follow up with the patient this week. Impression Primary Impression: Recurrent carcinoma of endometrium Additional Impression: Ureteral obstruction, right Scribe Attestation The scribe's documentation has been prepared under my direction and personally reviewed by me in its entirety. I confirm that the note above accurately reflects all work, treatment, procedures, and medical decision making performed by me. Departure Information Dispostion Home / Self-Care Prescriptions Hydrocodone/Acetaminophen 5MG/325MG ([place] 5MG/325MG) Tab 1-2 TABLET PO Q6 Y for Pain, #30 TAB Prov: Valery Ramos M.D. 10/22/16 Referrals Zeke Huff M.D. (PCP) Deion Robles D.O. Kesterson, Joshua P. M.D. Forms HOME CARE DOCUMENTATION FORM, IMPORTANT VISIT INFORMATION, WORK / SCHOOL INSTRUCTIONS Patient Instructions My [facility] Additional Instructions Diagnosis: Recurrent endometrial malignancy, right ureteral obstruction Continue your medications as prescribed. [place] one to 2 tabs every 6 hours as needed for pain. Do not drive or take Tylenol with this medication. Drink plenty of clear fluids. Follow-up with Dr. Schultz. His office will contact you tomorrow to establish follow-up. Return to the ER for worsening of symptoms or any medical concerns. Problem Qualifiers
[2016-11-12] MEDS ORDERED: DRGTP25 TD (07:45)
[2016-11-12] MEDS ORDERED: AMOX875T PO (07:45)
[2016-11-12] MEDS ORDERED: RXC5 PO (09:19)
[2016-11-13] MEDS ORDERED: WARF5TAB7 (12:44)
== END 2016-10-22 15:51 | disposition home or self-care (01) ==
LOC: C.EDB 09:39 → C.EDA 15:51
DX: C54.1 Malignant neoplasm of endometrium (principal); N13.5 Crossing vessel and stricture of ureter without hydronephrosis; K21.9 Gastro-esophageal reflux disease without esophagitis; M19.90 Unspecified osteoarthritis, unspecified site; Z85.89 Personal history of malignant neoplasm of other organs and systems; Z79.01 Long term (current) use of anticoagulants; Z80.9 Family history of malignant neoplasm, unspecified; Z83.79 Family history of other diseases of the digestive system; Z82.49 Family history of ischemic heart disease and other diseases of the circulatory system; Z91.09 Other allergy status, other than to drugs and biological substances

== ENCOUNTER 2016-10-31 08:28 | Inpatient (IN) | payer BC, OTHER ==
[~2016-10-31] VITALS: Ht 165.1 cm; Wt 60.9 kg
[~2016-10-31 08:28] MED LIST changes: -ACET-1311 PO; -ANTI NAUSEA MED; +CMP/10 PO; -DPH/ PO; +HYDR-5688 PO; +ULT50 PO
[2016-10-31] MEDS ORDERED: SODIUM CHLORIDE 0.9% 1000ML 1,000 ML IV STA (08:58)
[2016-10-31] MEDS ORDERED: MoRPHine SULFATE 4 MG/ML 1 ML CARP\\VIAL IV STA (08:58)
[2016-10-31] MEDS ORDERED: SODIUM CHLORIDE 0.9% 1000ML 250 ML IV STA (08:58)
[2016-10-31] MEDS ORDERED: ONDANSETRON INJ 2 MG/ML 2 ML VIAL IV STA (08:58)
--- NOTE | 2016-10-31 09:21 | EMERGENCY ROOM VISIT NOTE ---
History Report prepared by Dorina: Bethany Aguayo Under the Supervision of: Dr. Fortunato Hall M.D. First contact with patient: 08:44 Chief Complaint: PAIN (GENERALIZED) Stated Complaint: EXTREME PAIN DUE TO CANCER History of Present Illness The patient is a 65 year old female who presents to the Emergency Room with complaints of constant generalized pain, right worse than left. Her pain is mostly in her abdomen and flanks. The patient has a history of right sided endometrial cancer and had a complete hysterectomy. The patient's cancer returned last fall. Her most recent dose of chemotherapy was in June 2016 and her most recent radiation treatment was in August 2016. The patient was seen in the emergency room on October 22 for right sided hip pain and a CT scan of the abdomen and pelvis revealed concern for recurrent and metastatic disease. She was also found to have a right sided kidney blockage and is supposed to get a stent or drain placed, although it has not been ordered or scheduled. Currently, in addition to her generalized pain, she complains of painful urination because she has difficulty with her stream. Per patient's , she has had a decreased appetite and has not been eating much. The patient followed up with Dr. Robles on October 25 and the patient was prescribed a new chemotherapy treatment, which she is scheduled to start tomorrow. At that time, she was put on OxyContin BID for pain and Oxycodone for break through pain. She followed up with Dr. Schultz of [facility] and increased her OxyContin to TID. Denies vomiting or other complaints. The patient was previously on Coumadin due to a history of blood clots, but was recently taken off of it. She is currently on Lovenox. Source of History: patient, spouse/significant other Onset: [employer] Position: other (generalized, right side worse than left) Timing: constant Associated Symptoms: + urinary symptoms (painful urination) Note: Other symptoms: decreased appetite Review of Systems See HPI for pertinent positives & negatives. A total of 10 systems reviewed and were otherwise negative. Past Medical & Surgical Medical Problems: (1) Arthritis (2) Morton's esophagus (3) Bronchitis (4) section (5) Chest pain, rule out acute myocardial infarction (6) Endometrial cancer (7) Endoscopy (8) Gastroesophageal reflux disease (9) Intractable abdominal pain (10) Pneumonia Old medical records were reviewed. Nurse's notes were reviewed and I agree with. Family History Cancer Gallbladder disease Heart disease Hypertension Lung disease Social History Smoking Status: Never Smoker Alcohol Use: occasionally Drug Use: none Marital Status: Housing Status: lives with significant other Occupation Status: retired Current/Historical Medications Scheduled Albuterol Hfa (Ventolin Hfa), 2-4 PUFFS INH Q6H Atorvastatin (Lipitor), 10 MG PO QAM Biotin (Biotin), 2,500 MCG PO QAM Calcium Citrate-Vitamin D (Calcium Citrate + D), 2 TAB PO QAM Cyanocobalamin (Vitamin B12), 10,000 MCG PO QAM Enoxaparin (Lovenox), 60 MG SQ DAILY Escitalopram (Lexapro), 10 MG PO QAM Magnesium Oxide (Mag-Ox), 400 MG PO DAILY Multiple Vitamin (Multivitamin), 1 TAB PO QAM Omeprazole (Prilosec), 20 MG PO QAM Oxycodone HCl (Oxycontin), 10 MG PO TID Phytonadione (Vitamin K), 100 MCG PO DAILY Probiotic Product (Probiotic & Acidophilus F), 1 CAP PO QAM Psyllium (Metamucil), 2 CAP PO DIRECTED Scheduled PRN Alprazolam (Xanax), 0.5 MG PO DAILY PRN for Anxiety Loperamide Hcl (Imodium), 2 MG PO DAILY PRN for DIARRHEA Oxycodone Hcl (Oxycodone Hcl), 5-10 MG PO Q4H PRN for Breakthrough Pain Prochlorperazine Maleate (Prochlorperazine Maleate), 10 MG PO UD PRN for Nausea Temazepam (Restoril), 15 MG PO HS PRN for Sleep Allergies Coded Allergies: Cat Dander (Verified Allergy, Mild, Sneezing, 10/31/16) Physical Exam Vital Signs Date Time Temp Pulse Resp B/P Pulse Ox O2 Delivery O2 Flow Rate FiO2 10/31/16 08:35 36.6 91 18 100/62 98 Room Air Physical Exam General: Non-ill appearing older female. Well developed well nourished in no acute distress, breathing comfortably on room air. Normal speech HEENT: Normal cephalic atraumatic. Pupils are equal round and reactive to light. Extraocular movements are intact. Oropharynx is pink with moist mucous membranes. No swelling of the mouth lips or tongue. Neck: Supple with a midline trachea. No meningeal signs or stiffness, no JVD or bruits. No Stridor. Chest: Clear to auscultation bilaterally. No wheezes or rhonchi. No increased work of breathing. Heart: regular rate and rhythm. Abdomen: Soft nontender, nondistended without rebound guarding or rigidity. Extremities: No cyanosis clubbing or edema. No calf tenderness or assymetry Spine/Back. Non tender to palpation. No CVA tenderness Skin: Good turgor without rashes. Neurologic exam: Cranial nerves two through 12 are intact. Motor and sensation are intact and symmetrical throughout. Medical Decision & Procedures Laboratory Results 10/31/16 09:22 Red Blood Count 2.48, Mean Corpuscular Volume 96.4, Mean Corpuscular Hemoglobin 33.1, Mean Corpuscular Hemoglobin Concent 34.3, Mean Platelet Volume 11.0, Neutrophils (%) (Auto) 83.0, Lymphocytes (%) (Auto) 5.4, Monocytes (%) (Auto) 7.9, Eosinophils (%) (Auto) 3.3, Basophils (%) (Auto) 0.1, Neutrophils # (Auto) 11.25, Lymphocytes # (Auto) 0.73, Monocytes # (Auto) 1.07, Eosinophils # (Auto) 0.45, Basophils # (Auto) 0.02 10/31/16 09:22 Test 10/31/16 09:22 White Blood Count 13.56 K/uL (4.8-10.8) Red Blood Count 2.48 M/uL (4.2-5.4) Hemoglobin 8.2 g/dL (12.0-16.0) Hematocrit 23.9 % (37-47) Mean Corpuscular Volume 96.4 fL (80-100) Mean Corpuscular Hemoglobin 33.1 pg (25-34) Mean Corpuscular Hemoglobin Concent 34.3 g/dl (32-36) Platelet Count 149 K/uL (130-400) Mean Platelet Volume 11.0 fL (7.4-10.4) Neutrophils (%) (Auto) 83.0 % Lymphocytes (%) (Auto) 5.4 % Monocytes (%) (Auto) 7.9 % Eosinophils (%) (Auto) 3.3 % Basophils (%) (Auto) 0.1 % Neutrophils # (Auto) 11.25 K/uL (1.4-6.5) Lymphocytes # (Auto) 0.73 K/uL (1.2-3.4) Monocytes # (Auto) 1.07 K/uL (0.11-0.59) Eosinophils # (Auto) 0.45 K/uL (0-0.5) Basophils # (Auto) 0.02 K/uL (0-0.2) RDW Standard Deviation 54.3 fL (36.4-46.3) RDW Coefficient of Variation 15.4 % (11.5-14.5) Immature Granulocyte % (Auto) 0.3 % Immature Granulocyte # (Auto) 0.04 K/uL (0.00-0.02) Red Blood Cell Morphology Unremarkable Prothrombin Time 13.7 SECONDS (9.0-12.0) Prothromb Time International Ratio 1.3 (0.9-1.1) Activated Partial Thromboplast Time 39.0 SECONDS (21.0-31.0) Partial Thromboplastin Ratio 1.5 Anion Gap 7.0 mmol/L (3-11) Est Creatinine Clear Calc Drug Dose 51.9 ml/min Estimated GFR () 71.4 Estimated GFR (Non- 61.6 BUN/Creatinine Ratio 8.5 (10-20) Calcium Level 8.5 mg/dl (8.5-10.1) Total Bilirubin 0.4 mg/dl (0.2-1) Direct Bilirubin 0.1 mg/dl (0-0.2) Aspartate Amino Transf (AST/SGOT) 11 U/L (15-37) Alanine Aminotransferase (ALT/SGPT) 14 U/L (12-78) Alkaline Phosphatase 80 U/L (45-117) Total Protein 6.5 gm/dl (6.4-8.2) Albumin 2.3 gm/dl (3.4-5.0) Lipase 47 U/L (73-393) Laboratory studies as stated above per my review. Medications Administered Medications (Trade) Dose Ordered Sig/Rohan Route Start Time Stop Time Status Last Admin Dose Admin Sodium Chloride 250 ml @ 999 mls/hr Q16M STAT IV 10/31/16 08:58 10/31/16 09:13 DC 10/31/16 09:43 999 MLS/HR Sodium Chloride (Nss 1000ml) 1,000 ml @ 100 mls/hr Q10H STAT IV 10/31/16 08:58 10/31/16 12:35 DC 10/31/16 09:49 100 MLS/HR Morphine Sulfate (MoRPHine SULFATE INJ) 4 mg NOW STAT IV 10/31/16 08:58 10/31/16 09:01 DC 10/31/16 09:43 4 MG Ondansetron HCl (Zofran Inj) 4 mg NOW STAT IV 10/31/16 08:58 10/31/16 09:01 DC 10/31/16 09:43 4 MG ED Course 0845: Past medical records reviewed. The patient was evaluated in room B5, and a complete history and physical examination were performed. 0858: Ordered Zofran Inj 4 mg IV, Morphine Sulfate 4 mg IV, NSS 1000 ml @ 100 mls/hr IV, NSS 250 ml @ 999 mls/hr IV. 0937: I discussed the case with Dr. Robles - Hematology/Oncology. He recommended increasing her pain medications. 0942: I reassessed the patient and updated her on my conversation with Dr. Robles. 1008: I reassessed the patient. She was feeling more comfortable. I updated her on the plan and she was in agreement. 1016: I spoke with Dr. Robles in the department. He will evaluate the patient. 1021: I discussed the case with Dr. Vazquez - [facility] Hospitalist. The patient will be evaluated for further management. Medical Decision Differentials include hydronephrosis, cancer complication, UTI, infection, electrolyte or metabolic abnormality. This patient comes in as described above. She was placed in room B5. She is here for treatment and evaluation of pain. She has endometrial cancer. She was recently diagnosed with recurrence. She has hydronephrosis on the right she 's been seen here by Dr. Robles as well as an Cecy by the gynecologic oncologist. She has not yet seen urologist. She is afebrile. IV access established via her port. She was given morphine 4 mg IV. She was given Zofran 4 mg IV. She was reassessed frequently. She has a mildly elevated white count but no fever to suggest infection or sepsis. Urinalysis does not suggest a UTI with a backup culture pending. She has no significant electrolyte or metabolic abnormalities. The patient and her are concerned about her going home and think that she needs to be admitted for pain management urologic consultation. I did consult Dr. Robles who saw her in the ER and he agrees. Additionally, I did consult the [facility] hospitalist and they will admit her for these measures. Consults Time Called: [phone] Consulting Physician: Dr. Robles - Hematology/Oncology Returned Call: [phone] I discussed the case with him. He recommended increasing her pain medications. Additional Consults: Time Called: 1017 Consulted Physician: Dr. Vazquez - [facility] Hospitalist Returned Call: [phone] Additional Comments: I discussed the case with him. The patient will be evaluated for further management. Impression Primary Impression: Right sided abdominal pain Additional Impressions: Hydronephrosis Endometrial cancer Scribe Attestation The scribe's documentation has been prepared under my direction and personally reviewed by me in its entirety. I confirm that the note above accurately reflects all work, treatment, procedures, and medical decision making performed by me. Departure Information Dispostion Being Evaluated By Hospitalist Referrals No Doctor, Assigned (PCP) Patient Instructions My [facility] Problem Qualifiers
[2016-10-31] MEDS ORDERED: CALC-279 PO (09:31)
[2016-10-31] MEDS ORDERED: VNTHFA/IN INH (09:31)
[2016-10-31] MEDS ORDERED: ENOX60IN SQ (09:33)
[2016-10-31] MEDS ORDERED: OXYSR10 PO (09:33)
[2016-10-31] MEDS ORDERED: OXYC1CAP5 PO (09:33)
[2016-10-31 09:47] LABS: BASO % 0.1 %; BASO ABS # 0.02 K/uL (0-0.2); EOS % 3.3 %; HEMATOCRIT 23.9 % (37-47); IG% 0.3 %; LYMPH % 5.4 %; LYMPH ABS # 0.73 K/uL (1.2-3.4); MEAN CELL VOLUME 96.4 fL (80-100); MEAN CORPUSCULAR HEMOGLOBIN 33.1 pg (25-34); MEAN CORPUSCULAR HGB CONC 34.3 g/dl (32-36); MONO % 7.9 %; PLATELET COUNT 149 K/uL (130-400); RED BLOOD COUNT 2.48 M/uL (4.2-5.4); WHITE BLOOD COUNT 13.56 K/uL (4.8-10.8)
[2016-10-31 09:54] LABS: INR 1.3 (0.9-1.1); PARTIAL THROMBOPLASTIN RATIO 1.5; PROTHROMBIN TIME (PATIENT) 13.7 SECONDS (9.0-12.0)
[2016-10-31 10:09] LABS: BUN/CREATININE RATIO 8.5 (10-20); CALCIUM 8.5 mg/dl (8.5-10.1); COMPLETE YES; CREATININE 0.96 mg/dl (0.60-1.20); POTASSIUM 3.2 mmol/L (3.5-5.1)
[2016-10-31] MEDS ORDERED: ENOXAPARIN 40 MG/0.4 ML SYR SQ SCH (10:30)
[2016-10-31] MEDS ORDERED: ONDANSETRON INJ 2 MG/ML 2 ML VIAL IV PRN (10:30)
[2016-10-31] MEDS ORDERED: ACETAMINOPHEN 325 MG TAB PO PRN (10:30)
[2016-10-31] MEDS ORDERED: TEMAZEPAM 15 MG CAP PO PRN (10:30)
[2016-10-31] MEDS ORDERED: DEXAMETHASONE 4 MG TAB PO STA (10:41)
--- NOTE | 2016-10-31 10:49 | DIAGNOSTIC IMAGING REPORT ---
CHEST ONE VIEW PORTABLE CLINICAL HISTORY: leukocytosis ENDOMETRIAL CARCINOMA COMPARISON STUDY: January 21, 2016 FINDINGS: The heart is normal in size. There is a right A-Port catheter with its tip projected over the superior vena cava. There is widening of the right paratracheal/azygous region. Adenopathy cannot be excluded. There is a nonspecific 19 mm right midlung zone nodule. There are equivocal right upper lobe airspace opacities projected over the central venous port. There is also equivocal nodule at the left lung base. CT scanning might be considered in follow-up. IMPRESSION: 1. Nonspecific 19 mm right midlung zone nodule, and equivocal 1 cm left lower lung zone nodule 2. Possible right paratracheal adenopathy 3. Equivocal right suprahilar airspace opacities 4. CT scanning should be considered for further evaluation. Electronically signed by: Philippe Jackson M.D. 10/31/2016 10:47 AM Dictated Date/Time: 10/31/2016 10:44 AM
[2016-10-31 11:20] VITALS: O2SAT 92; Ht 165.1 cm; Wt 60.9 kg
--- NOTE | 2016-10-31 12:30 | DIAGNOSTIC IMAGING REPORT ---
Venous Doppler right leg RIGHT VENOUS DOPP LOWER EXT UNILAT CLINICAL HISTORY: swelling Right pain. Edema. TECHNIQUE: Venous Doppler COMPARISON STUDY: None FINDINGS: Normal study IMPRESSION: Normal study Electronically signed by: Martinez Nunn M.D. 10/31/2016 12:28 PM Dictated Date/Time: 10/31/2016 12:27 PM
[2016-10-31] MEDS ORDERED: NSS + 20MEQ KCL 1000ML 1,000 ML IV SCH (12:45)
[2016-10-31 13:11] LABS: URINE APPEARANCE CLEAR (CLEAR); URINE BILIRUBIN NEG (NEG); URINE COLOR YELLOW; URINE NITRITE NEG (NEG); URINE PH 5.5 (4.5-7.5); URINE SPECIFIC GRAVITY 1.006 (1.000-1.030); UROBILINOGEN NEG (NEG)
[2016-10-31 13:12] LABS: MANUAL MICROSCOPIC REQUIRED? NO; REVIEW REQ? NO
[2016-10-31] MEDS: OXYCODONE HCL 10 MG TABCR (OXYCONTIN) PO SCH ×2 (13:51→19:55)
--- NOTE | 2016-10-31 14:01 | Oncology Consultation ---
Oncology/Heme Consultation Date of Consultation: Oct 31, 2016. Attending Physician: Luis Vazquez D.O. Reason for Consultation: Patient with a history of endometrial carcinoma Refractory pain History of Present Illness Ms. Monroy is a delightful 65-year-old female that was diagnosed in December 2015 with endometrial carcinoma. She presented with postmenopausal bleeding. 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 There was direct extension into the myometrium as well as metastatic disease to the right fallopian tube and right ovary. Regional lymph nodes at that time were not involved. There was no microsatellite instability. She went on to receive Taxol and carboplatinum 6 cycles followed by radiation therapy but during that time or shortly after the chemotherapy an updated CT scan would demonstrate new adenopathy or masses in the pelvis that on biopsy did demonstrate metastatic disease. Radiation therapy was also given to the pelvis. Unfortunately and recently the patient developed refractory right hip discomfort. The CT scans with demonstrate recurrent and progressive disease in the pelvic floor. There is also right hydronephrosis. She has recently begun on narcotics for pain. The pain has become very substantially she was seen in the emergency room today with continued right pain including right flank pain. The pain also radiates down the posterior portion of her right leg. The right ankle is mildly edematous now. She denies any vaginal bleeding. We recently had a discussion about her recurrent and progressive disease with thoughts on beginning Doxil very soon.. During her CT scan she was serendipitously found to have a pulmonary embolus and she has been on anticoagulation for this. Past Medical/Surgical History Medical Problems: (1) Cervical radiculopathy Status: Acute (2) Dyspnea on exertion Status: Acute (3) Hydronephrosis Status: Acute (4) Precordial chest pain Status: Acute (5) Recurrent carcinoma of endometrium Status: Acute (6) Right sided abdominal pain Status: Acute (7) Ureteral obstruction, right Status: Acute Family History Cancer Gallbladder disease Heart disease Hypertension Lung disease Father had esophageal carcinoma. Social History Negative for significant smoking. She drinks alcohol only on a social basis and frequency Smoking Status: Never Smoker Drug Use: none Marital Status: Housing Status: lives with significant other Occupation Status: retired Allergies Coded Allergies: Cat Dander (Verified Allergy, Mild, Sneezing, 10/31/16) Home Medications Scheduled Albuterol Hfa (Ventolin Hfa), 2-4 PUFFS INH Q6H Atorvastatin (Lipitor), 10 MG PO QAM Biotin (Biotin), 2,500 MCG PO QAM Calcium Citrate-Vitamin D (Calcium Citrate + D), 2 TAB PO QAM Cyanocobalamin (Vitamin B12), 10,000 MCG PO QAM Enoxaparin (Lovenox), 60 MG SQ DAILY Escitalopram (Lexapro), 10 MG PO QAM Magnesium Oxide (Mag-Ox), 400 MG PO DAILY Multiple Vitamin (Multivitamin), 1 TAB PO QAM Omeprazole (Prilosec), 20 MG PO QAM Oxycodone HCl (Oxycontin), 10 MG PO TID Phytonadione (Vitamin K), 100 MCG PO DAILY Probiotic Product (Probiotic & Acidophilus F), 1 CAP PO QAM Psyllium (Metamucil), 2 CAP PO DIRECTED Scheduled PRN Alprazolam (Xanax), 0.5 MG PO DAILY PRN for Anxiety Loperamide Hcl (Imodium), 2 MG PO DAILY PRN for DIARRHEA Oxycodone Hcl (Oxycodone Hcl), 5-10 MG PO Q4H PRN for Breakthrough Pain Prochlorperazine Maleate (Prochlorperazine Maleate), 10 MG PO UD PRN for Nausea Temazepam (Restoril), 15 MG PO HS PRN for Sleep Current Inpatient Medications Current Inpatient Medications Medications (Trade) Dose Ordered Sig/Rohan Route Start Time Stop Time Status Last Admin Dose Admin Acetaminophen (Tylenol Tab) 650 mg Q4H PRN PO 10/31/16 10:30 11/30/16 10:29 Ondansetron HCl 4 mg 4 mg Q6H PRN IV 10/31/16 10:30 11/30/16 10:29 Potassium Chloride/Sodium Chloride (Nss + 20meq KCl 1000ml) 1,000 ml @ 100 mls/hr Q10H IV 10/31/16 12:45 10/31/16 22:44 Albuterol (Ventolin Hfa Inhaler) 2 puffs Q6 INH 10/31/16 18:00 11/30/16 17:59 Alprazolam (Xanax Tab) 0.5 mg DAILY PRN PO 10/31/16 10:30 11/30/16 10:29 Atorvastatin Calcium (Lipitor Tab) 10 mg QAM PO 11/01/16 08:00 12/01/16 08:59 Enoxaparin Sodium (Lovenox Inj) 60 mg DAILY SQ 11/01/16 08:00 12/01/16 08:59 Escitalopram Oxalate (Lexapro Tab) 10 mg QAM PO 11/01/16 08:00 12/01/16 08:59 Magnesium Oxide (Mag-Ox Tab) 400 mg DAILY PO 11/01/16 08:00 12/01/16 08:59 Oxycodone HCl (Oxycontin Tab) 10 mg TID PO 10/31/16 14:00 11/14/16 13:59 Temazepam (Restoril Cap) 15 mg HS PRN PO 10/31/16 10:30 11/30/16 10:29 Pantoprazole Sodium (Protonix Tab) 40 mg QAM PO 11/01/16 08:00 12/01/16 07:59 Hydromorphone HCl (Dilaudid Inj) 1 mg Q4 PRN IV 10/31/16 10:30 11/14/16 10:29 Dexamethasone (Decadron Tab) 4 mg DAILY PO 11/01/16 08:00 12/01/16 08:59 Miscellaneous Information (Order Awaiting Action) 1 ea QS N/A 10/31/16 16:00 11/30/16 15:59 Review of Systems Constitutional: Negative for night sweats, or fever. She has had about a 2-3 pound weight loss she states just the past week Eyes: Negative for event change of vision ENT: Negative for epistaxis, nasal discharge, sore throat, or deafness Cardiovascular: Negative for chest pain, palpitations, dizziness, diaphoresis Respiratory: Negative for new shortness of breath,hemoptysis, or purulent cough Gastrointestinal: Negative for diarrhea, hematemesis, melena, nausea, vomiting , or dyspepsia. She recently started narcotics and tends now to be constipated Integumentary (skin): Negative for rash or jaundice discoloration Genitourinary: Negative for urinary frequency, hematuria, or dysuria Neurological: Negative for weakness, seizure activity, headache, or dizziness Lymphatic/Hematologic: Negative for petechiae, bleeding or new adenopathy Musculoskeletal: Positive for right leg discomfort as well as right flank and back pain. She states she is unable to put weight on her right leg. Allergic/Immunologic: Negative for unusual rash or pruritis. Physical Exam Date Time Temp Pulse Resp B/P Pulse Ox O2 Delivery O2 Flow Rate FiO2 10/31/16 11:51 36.6 88 17 127/71 98 Room Air 10/31/16 11:20 92 Room Air 10/31/16 10:55 88 16 122/67 92 Room Air 10/31/16 08:35 36.6 91 18 100/62 98 Room Air Alert pleasant female Constitutional: vitals are stable. She does appear uncomfortable however Eyes: Eyes are ROSETTE EOMI without conjuctival erythema or icterus. ENT: External examination was negative for masses. Neck: Negative for masses or palpable thyromegaly Respiratory: Lung sounds were generally clear bilaterally Cardiovascular: Heart was RRR without significant murmur, gallops aoe rubs Gastrointestinal: No palpable hepatic or splenomegaly. The abdomen was soft with normal bowel sounds. Lymphatic system: there was no palpable peripheral lymphadenopathy Musculoskeletal System: The musculoskeletal system seemed concordant with age. Skin: The skin was negative for jaundice. Neurologic exam: The exam was negative for any focal findings. Deep tendon reflexes were equal and symmetrical. Psychiatric exam: Was essentially negative with normal mood and effect. Breast exam: Not done today Extremities: Mild right ankle edema. Her leg is tender to touch Laboratory Results Last 24 Hours Test 10/31/16 09:22 10/31/16 11:00 White Blood Count 13.56 K/uL Red Blood Count 2.48 M/uL Hemoglobin 8.2 g/dL Hematocrit 23.9 % Mean Corpuscular Volume 96.4 fL Mean Corpuscular Hemoglobin 33.1 pg Mean Corpuscular Hemoglobin Concent 34.3 g/dl Platelet Count 149 K/uL Mean Platelet Volume 11.0 fL Neutrophils (%) (Auto) 83.0 % Lymphocytes (%) (Auto) 5.4 % Monocytes (%) (Auto) 7.9 % Eosinophils (%) (Auto) 3.3 % Basophils (%) (Auto) 0.1 % Neutrophils # (Auto) 11.25 K/uL Lymphocytes # (Auto) 0.73 K/uL Monocytes # (Auto) 1.07 K/uL Eosinophils # (Auto) 0.45 K/uL Basophils # (Auto) 0.02 K/uL RDW Standard Deviation 54.3 fL RDW Coefficient of Variation 15.4 % Immature Granulocyte % (Auto) 0.3 % Immature Granulocyte # (Auto) 0.04 K/uL Red Blood Cell Morphology Unremarkable Prothrombin Time 13.7 SECONDS Prothromb Time International Ratio 1.3 Activated Partial Thromboplast Time 39.0 SECONDS Partial Thromboplastin Ratio 1.5 Sodium Level 131 mmol/L Potassium Level 3.2 mmol/L Chloride Level 92 mmol/L Carbon Dioxide Level 32 mmol/L Anion Gap 7.0 mmol/L Blood Urea Nitrogen 8 mg/dl Creatinine 0.96 mg/dl Est Creatinine Clear Calc Drug Dose 51.9 ml/min Estimated GFR () 71.4 Estimated GFR (Non- 61.6 BUN/Creatinine Ratio 8.5 Random Glucose 119 mg/dl Calcium Level 8.5 mg/dl Total Bilirubin 0.4 mg/dl Direct Bilirubin 0.1 mg/dl Aspartate Amino Transf (AST/SGOT) 11 U/L Alanine Aminotransferase (ALT/SGPT) 14 U/L Alkaline Phosphatase 80 U/L Total Protein 6.5 gm/dl Albumin 2.3 gm/dl Lipase 47 U/L Urine Color YELLOW Urine Appearance CLEAR Urine pH 5.5 Urine Specific [place] 1.006 Urine Protein NEG Urine Glucose (UA) NEG Urine Ketones NEG Urine Occult Blood 1+ Urine Nitrite NEG Urine Bilirubin NEG Urine Urobilinogen NEG Urine Leukocyte Esterase SMALL Urine WBC (Auto) 5-10 /hpf Urine RBC (Auto) 0-4 /hpf Urine Hyaline Casts (Auto) 0 /lpf Urine Epithelial Cells (Auto) 10-20 /lpf Urine Bacteria (Auto) NEG Assessment & Plan Refractory progressive endometrial carcinoma. She is admitted now with refractory pain with pain being primarily the right flank right pelvis and radiating down her right leg. I suspect this leg pain represents more of a sacral iliac type distribution from her pelvic disease. She is just started on OxyContin 10 mg twice a day and oxycodone 5-10 mg every 4-6 hours for breakthrough pain. For now I would increase the oxycontin to at least 20 mg twice a day. I believe a consultation to anesthesiology (I have spoken with Dr. Dennison) is certainly warranted to help manage her pain. A Doppler of her right lower extremity was also warranted. She has been on anticoagulation and we continue that. While she is here and in preparation for receiving Doxil I would like to have an echocardiogram done. We also wanted to do a CT scan of the chest without IV contrast and I will order that to round out her metastatic workup. Finally I would ask urology to see her because of her recognize hydronephrosis and the possibility of needing a stent (she was scheduled to see Dr. Gray). I would add Decadron perhaps at 4 mg a day orally to help with pain relief as well as hopefully helping her overall vibrancy. CBC should be monitored. Hemoglobin is 8.2 - the cause of low hemoglobin is unclear but she may need transfused soon.
[2016-10-31 15:27] VITALS: BP 106/67; PULSE 87; TEMP 36.6; O2SAT 93
--- NOTE | 2016-10-31 15:32 | DIAGNOSTIC IMAGING REPORT ---
CT OF THE CHEST WITHOUT IV CONTRAST CLINICAL HISTORY: Endometrial carcinoma. Abnormal chest x-ray. COMPARISON STUDY: CT scan dated 06/03/2016, chest x-ray dated 10/31/2016 CT DOSE: 188.41 mGy.cm TECHNIQUE: CT of the thorax was performed from the thoracic inlet to the lung bases. Images are reviewed in the axial, sagittal, and coronal planes. IV contrast was not administered for this examination. FINDINGS: Thyroid: Imaged portions of the thyroid gland are normal in appearance. Thoracic aorta: The thoracic aorta is normal in course and caliber, noting standard 3 vessel arch anatomy. Heart: The heart is normal in size and configuration, without pericardial effusion. Lungs and pleural spaces: There are no pleural effusions. There is no evidence of focal pulmonary consolidation. There are multiple new bilateral pulmonary nodules. The 2 largest nodules on the left are a 1 cm left upper lobe nodule visualized in image #110/296, as well as a 1 cm lingular nodule visualized in image #[id number]. On the right, the largest nodule is a lobulated right middle lobe 26 mm nodule demonstrating central cavitation. Mediastinum: There is new mediastinal lymphadenopathy. There is a pathologic 35mm right paratracheal lymph node. Lavonne: Mildly enlarged left hilar lymph nodes are suspected. Axilla: Clear. Upper abdomen: There is hepatic steatosis. Skeletal structures: There are no lytic or blastic osseous lesions. IMPRESSION: 1. Interval development of multiple bilateral pulmonary nodules, including a lobulated cavitating 26 mm right middle lobe pulmonary nodule 2. Interval development of pathologic mediastinal adenopathy including a 35mm right paratracheal lymph node Electronically signed by: Philippe Jackson M.D. 10/31/2016 3:30 PM Dictated Date/Time: 10/31/2016 3:21 PM
[2016-10-31 16:00] VITALS: O2SAT 93
[2016-10-31] MEDS: ALBUTEROL HFA 8 GM INHALER INH SCH ×2 (18:00→23:34)
--- NOTE | 2016-10-31 18:04 | History and Physical ---
History & Physical Date & Time of Service: Oct 31, 2016 at 17:08 Chief Complaint: Intractable Abdominal Pain,Recurrent Carcinoma Of Primary Care Physician: Zeke Huff M.D. History of Present Illness Source: patient, family 65 yo female with history of endometrial cancer, chronic pain related to malignancy who presents with increasing pain that is not controlled with Oxycontin and OxyIR as outpatient. She follows with Dr. Robles. In addition to having sever pain she has felt fatigued and her appetite has been poor for the past several day. She has been urinating okay but has not had a bowel movement for several days. She has noticed increased swelling in her right leg. Recent scans have shown a right sided pelvic mass consistent with metastatic endometrial cancer and a right sided hydronephrosis. She was scheduled to see urology outpatient to evaluate for a stent on the right side vs need for percutaneous drain but she could not make appointment due to increased pain. The case was discussed with Dr. Robles, he would like to admit for pain control , obtain urology and pain management consultations and perform a further staging work up of the cancer. Of note, she denies any fever/chills, cough, shortness of breath or chest pain. She admits to the abdominal pain and feels like when she sits up her abdomen "shifts." Past Medical/Surgical History Metastatic endometrial cancer s/p hysterectomy Pulmonary emboli Medical Problems: (1) Arthritis Status: Chronic (2) Morton's esophagus Status: Chronic (3) Bronchitis Status: Chronic (4) section Status: Resolved (5) Endoscopy Status: Resolved (6) Gastroesophageal reflux disease Status: Chronic (7) Pneumonia Status: Chronic Family History Cancer Gallbladder disease Heart disease Hypertension Lung disease Social History Smoking Status: Never Smoker Drug Use: none Marital Status: Housing status: lives with family Occupational Status: retired Multi-Drug Resistant Organisms History of MDRO: No Allergies Coded Allergies: Cat Dander (Verified Allergy, Mild, Sneezing, 10/31/16) Home Medications Scheduled Albuterol Hfa (Ventolin Hfa), 2-4 PUFFS INH Q6H Atorvastatin (Lipitor), 10 MG PO QAM Biotin (Biotin), 2,500 MCG PO QAM Calcium Citrate-Vitamin D (Calcium Citrate + D), 2 TAB PO QAM Cyanocobalamin (Vitamin B12), 10,000 MCG PO QAM Enoxaparin (Lovenox), 60 MG SQ DAILY Escitalopram (Lexapro), 10 MG PO QAM Magnesium Oxide (Mag-Ox), 400 MG PO DAILY Multiple Vitamin (Multivitamin), 1 TAB PO QAM Omeprazole (Prilosec), 20 MG PO QAM Oxycodone HCl (Oxycontin), 10 MG PO TID Phytonadione (Vitamin K), 100 MCG PO DAILY Probiotic Product (Probiotic & Acidophilus F), 1 CAP PO QAM Psyllium (Metamucil), 2 CAP PO DIRECTED Scheduled PRN Alprazolam (Xanax), 0.5 MG PO DAILY PRN for Anxiety Loperamide Hcl (Imodium), 2 MG PO DAILY PRN for DIARRHEA Oxycodone Hcl (Oxycodone Hcl), 5-10 MG PO Q4H PRN for Breakthrough Pain Prochlorperazine Maleate (Prochlorperazine Maleate), 10 MG PO UD PRN for Nausea Temazepam (Restoril), 15 MG PO HS PRN for Sleep Review of Systems Constitutional: + fatigue, + weakness, No chills, No fever, No problem reported , No sweats, No weight loss Eyes: No diplopia, No discharge, No eye pain, No problem reported, No redness, No worsening of vision ENT: No dental problems, No hearing loss, No nasal symptoms, No problem reported, No sore throat, No tinnitus, No trouble swallowing, No unusual epistaxis Respiratory: No cough, No dyspnea at rest, No dyspnea on exertion, No hemoptysis, No problem reported, No shortness of breath, No sputum, No wheezing Cardiovascular: + edema (right leg), No PND, No chest pain, No claudication, No orthopnea, No palpitations, No problem reported Abdomen: + constipation, + pain (RLQ), + problem reported (poor appetite), No GI bleeding, No diarrhea, No nausea, No vomiting Musculoskeletal: No calf pain, No joint pain, No muscle pain, No problem reported, No swelling Genitourinary - Female: No dysuria, No hematuria, No menorrhagia, No urinary frequency, No urinary incontinence, No urinary retention, No urinary urgency, No vaginal discharge Neurologic: + weakness, No balance problems, No memory loss, No numbness/ tingling, No paralysis, No problem reported, No vertigo Psychiatric: No anhedonism, No anxiety, No depression symptoms, No insomnia, No problem reported, No substance abuse Endocrine: No excessive thirst, No excessive urination, No fatigue, No problem reported Hematologic / Lymphatic: No abnormal bleeding/bruising, No clotting problems, No night sweats, No problem reported, No swollen lymph nodes Integumentary: No bleeding, No color change, No itch, No new/changing skin lesions, No problem reported, No rash Allergic / Immunologic: No environmental allergies, No food allergies, No frequent infections, No hives, No pet sensitivities, No poor healing, No problem reported, No prolonged convalescence, No seasonal allergies Physical Exam Vital Signs Date Time Temp Pulse Resp B/P Pulse Ox O2 Delivery O2 Flow Rate FiO2 10/31/16 15:27 36.6 87 18 106/67 93 Room Air 10/31/16 11:51 36.6 88 17 127/71 98 Room Air 10/31/16 11:20 92 Room Air 10/31/16 10:55 88 16 122/67 92 Room Air 10/31/16 08:35 36.6 91 18 100/62 98 Room Air General Appearance: no apparent distress, + thin Head: normocephalic, atraumatic Eyes: normal inspection, EOMI, sclerae normal ENT: normal ENT inspection, hearing grossly normal, pharynx normal Neck: supple, no adenopathy, no JVD, trachea midline Respiratory/Chest: chest non-tender, lungs clear, normal breath sounds, no respiratory distress, no accessory muscle use Cardiovascular: regular rate, rhythm, no gallop, no JVD, no murmur, normal peripheral pulses Abdomen/GI: normal bowel sounds, soft, no organomegaly, + tenderness (RLQ) Back: normal inspection, no CVA tenderness, no muscle spasm, normal range of motion Extremities/Musculoskelatal: normal inspection, no calf tenderness, normal capillary refill, normal range of motion, pelvis stable, + pedal edema (right leg) Neurologic/Psych: nursing project coordinator II-XII nml as tested, no motor/sensory deficits, alert, normal mood/affect, normal reflexes, oriented x 3 Skin: normal color, warm/dry, no rash Lymphatic: no adenopathy Diagnostics Laboratory Results Results Past 24 Hours Test 10/31/16 09:22 10/31/16 11:00 Range/Units White Blood Count 13.56 4.8-10.8 K/uL Red Blood Count 2.48 4.2-5.4 M/uL Hemoglobin 8.2 12.0-16.0 g/dL Hematocrit 23.9 37-47 % Mean Corpuscular Volume 96.4 80-100 fL Mean Corpuscular Hemoglobin 33.1 25-34 pg Mean Corpuscular Hemoglobin Concent 34.3 32-36 g/dl Platelet Count 149 130-400 K/uL Mean Platelet Volume 11.0 7.4-10.4 fL Neutrophils (%) (Auto) 83.0 % Lymphocytes (%) (Auto) 5.4 % Monocytes (%) (Auto) 7.9 % Eosinophils (%) (Auto) 3.3 % Basophils (%) (Auto) 0.1 % Neutrophils # (Auto) 11.25 1.4-6.5 K/uL Lymphocytes # (Auto) 0.73 1.2-3.4 K/uL Monocytes # (Auto) 1.07 0.11-0.59 K/uL Eosinophils # (Auto) 0.45 0-0.5 K/uL Basophils # (Auto) 0.02 0-0.2 K/uL RDW Standard Deviation 54.3 36.4-46.3 fL RDW Coefficient of Variation 15.4 11.5-14.5 % Immature Granulocyte % (Auto) 0.3 % Immature Granulocyte # (Auto) 0.04 0.00-0.02 K/uL Red Blood Cell Morphology Unremarkable Prothrombin Time 13.7 9.0-12.0 SECONDS Prothromb Time International Ratio 1.3 0.9-1.1 Activated Partial Thromboplast Time 39.0 21.0-31.0 SECONDS Partial Thromboplastin Ratio 1.5 Sodium Level 131 136-145 mmol/L Potassium Level 3.2 3.5-5.1 mmol/L Chloride Level 92 98-107 mmol/L Carbon Dioxide Level 32 21-32 mmol/L Anion Gap 7.0 3-11 mmol/L Blood Urea Nitrogen 8 7-18 mg/dl Creatinine 0.96 0.60-1.20 mg/dl Est Creatinine Clear Calc Drug Dose 51.9 ml/min Estimated GFR () 71.4 Estimated GFR (Non- 61.6 BUN/Creatinine Ratio 8.5 10-20 Random Glucose 119 70-99 mg/dl Calcium Level 8.5 8.5-10.1 mg/dl Total Bilirubin 0.4 0.2-1 mg/dl Direct Bilirubin 0.1 0-0.2 mg/dl Aspartate Amino Transf (AST/SGOT) 11 15-37 U/L Alanine Aminotransferase (ALT/SGPT) 14 12-78 U/L Alkaline Phosphatase 80 45-117 U/L Total Protein 6.5 6.4-8.2 gm/dl Albumin 2.3 3.4-5.0 gm/dl Lipase 47 73-393 U/L Urine Color YELLOW Urine Appearance CLEAR CLEAR Urine pH 5.5 4.5-7.5 Urine Specific [place] 1.006 1.000-1.030 Urine Protein NEG NEG Urine Glucose (UA) NEG NEG Urine Ketones NEG NEG Urine Occult Blood 1+ NEG Urine Nitrite NEG NEG Urine Bilirubin NEG NEG Urine Urobilinogen NEG NEG Urine Leukocyte Esterase SMALL NEG Urine WBC (Auto) 5-10 0-5 /hpf Urine RBC (Auto) 0-4 0-4 /hpf Urine Hyaline Casts (Auto) 0 0-5 /lpf Urine Epithelial Cells (Auto) 10-20 0-5 /lpf Urine Bacteria (Auto) NEG NEG Microbiology Results 10/31/16 Urine Culture, Received Pending Diagnostic Radiology CHEST ONE VIEW PORTABLE CLINICAL HISTORY: leukocytosis ENDOMETRIAL CARCINOMA COMPARISON STUDY: January 21, 2016 FINDINGS: The heart is normal in size. There is a right A-Port catheter with its tip projected over the superior vena cava. There is widening of the right paratracheal/azygous region. Adenopathy cannot be excluded. There is a nonspecific 19 mm right midlung zone nodule. There are equivocal right upper lobe airspace opacities projected over the central venous port. There is also equivocal nodule at the left lung base. CT scanning might be considered in follow-up. IMPRESSION: 1. Nonspecific 19 mm right midlung zone nodule, and equivocal 1 cm left lower lung zone nodule 2. Possible right paratracheal adenopathy 3. Equivocal right suprahilar airspace opacities 4. CT scanning should be considered for further evaluation. RIGHT VENOUS DOPP LOWER EXT UNILAT Venous Doppler right leg CLINICAL HISTORY: swelling Right pain. Edema. TECHNIQUE: Venous Doppler COMPARISON STUDY: None FINDINGS: Normal study IMPRESSION: Normal study CT OF THE CHEST WITHOUT IV CONTRAST CLINICAL HISTORY: Endometrial carcinoma. Abnormal chest x-ray. COMPARISON STUDY: CT scan dated 06/03/2016, chest x-ray dated 10/31/2016 CT DOSE: 188.41 mGy.cm TECHNIQUE: CT of the thorax was performed from the thoracic inlet to the lung bases. Images are reviewed in the axial, sagittal, and coronal planes. IV contrast was not administered for this examination. FINDINGS: Thyroid: Imaged portions of the thyroid gland are normal in appearance. Thoracic aorta: The thoracic aorta is normal in course and caliber, noting standard 3 vessel arch anatomy. Heart: The heart is normal in size and configuration, without pericardial effusion. Lungs and pleural spaces: There are no pleural effusions. There is no evidence of focal pulmonary consolidation. There are multiple new bilateral pulmonary nodules. The 2 largest nodules on the left are a 1 cm left upper lobe nodule visualized in image #110/[id number], as well as a 1 cm lingular nodule visualized in image #[id number]. On the right, the largest nodule is a lobulated right middle lobe 26 mm nodule demonstrating central cavitation. Mediastinum: There is new mediastinal lymphadenopathy. There is a pathologic 35mm right paratracheal lymph node. Lavonne: Mildly enlarged left hilar lymph nodes are suspected. Axilla: Clear. Upper abdomen: There is hepatic steatosis. Skeletal structures: There are no lytic or blastic osseous lesions. IMPRESSION: 1. Interval development of multiple bilateral pulmonary nodules, including a lobulated cavitating 26 mm right middle lobe pulmonary nodule 2. Interval development of pathologic mediastinal adenopathy including a 35mm right paratracheal lymph node Impression Assessment and Plan 65 yo female with metastatic endometrial cancer, now with evidence of spreading to the lungs, here with intractable pain - Metastatic endometrial cancer: local spread in the right sided of the pelvis and now with lung nodule, adenopathy continue Oxycontin 10mg TID, add Dilaudid 1mg IV q4 PRN for breakthrough, pain management consult right hydronephrosis - consult urology to evaluate for stent start Decadron 4mg daily to try to decrease swelling, help with pain echocardiogram ordered prior to starting chemotherapy - H/o PE: continue Lovenox, no evidence of DVT in right leg on doppler - Dehydration: IV fluids - Hypokalemia: place in maintenance fluids, repeat labs tomorrow - Hypomagnesemia: continue Mag oxide - GERD: PPI - Depression: Lexapro Level of Care Med/Surg Advanced Directives Existing Living Will: Yes Existing Power of Principal Data Architect: Yes (ABBIE ) Resuscitation Status FULL RESUSCITATION VTE Prophylaxis VTE Risk Assessment Done? Y/N: Yes Risk Level: High Given or contraindicated: Enoxaparin (Lovenox)SQ Additional Copies To Deion Robles D.O.; Pro,Zeke Ochoa M.D.
[2016-10-31] MEDS: CIPROFLOXACIN / D5W 200 MG in PREMIXED IN D5W 100 ML IV SCH (18:21)
[2016-10-31 19:32] VITALS: BP 92/55; PULSE 84; TEMP 36.3; O2SAT 93
[2016-10-31] MEDS: HYDROmorphone INJ 1 MG/ML SYR IV PRN (21:18)
[2016-10-31] MEDS: ALPRAZOLAM 0.5 MG TAB PO PRN (21:22)
[2016-10-31 23:04] VITALS: BP_SYST 84; BP_SYST 90; BP_DIAS 48; BP_DIAS 53; PULSE 79; TEMP 36.3; O2SAT 96
--- NOTE | 2016-11-01 03:06 | GENITOURINARY CONSULTATION ---
DATE OF CONSULTATION: 10/31/2016 REASON FOR THE CONSULT: Right hydronephrosis. HISTORY OF PRESENTATION: The patient is an unfortunate 65-year-old female, with a 9-month history of uterine cancer, status post surgery for this with recurrences, who appeared to have a possible pulmonary embolus and was started on anticoagulation in May. Recently has had multiple recurrences in her chest which makes me question whether the patient actually had a pulmonary embolus or an early recurrence of cancer that had not been detected. She also has had negative DVT evaluations including negative DVT of her lower extremities on evaluation today. She recently has been experiencing increasing right flank pain and right leg pain. The leg pain seems to be nerve pain from the cancer invading the nerves that go to her leg. The flank pain seems to be secondary potentially to obstruction of the right ureter as she does have moderate to severe right hydronephrosis. The patient was seen on 10/22/2016 in the Emergency Room for pain when she had a CAT scan that showed she had hydronephrosis. She was allowed to go home and returned today with worsening pain when she walks in her leg and pain otherwise in her right abdomen and flank. She reports in the past having bladder infection, but none recently. Her urine appears clear on this admission except she does have 5-10 white cells and some epithelial cells. No bacteria noted and 0-4 red cells. She had a CAT scan today of her chest which showed multiple new pulmonary nodules including a cavitating 26 cm right pulmonary nodule and right mediastinal adenopathy. I did discuss this situation with her on the phone. I explained to him that we could try to place a stent to give her some relief from her right flank, but there was a risk of bleeding and if she had anesthesia there was a risk that she could develop pulmonary embolus. Although, again, she has no deep vein thrombosis on x-ray today. PHYSICAL EXAMINATION: HEENT: Unremarkable. GENERAL: The patient is somewhat drowsy secondary to pain control. She does not have any respiratory distress. ABDOMEN: Does show some tenderness on the right side and the right flank, but none on the left. EXTREMITIES: I did not make the patient ambulate, but there is some edema on the right. NEUROLOGIC: She is somewhat confused, but I think this is because of the mild pain medicines she has had. ASSESSMENT: Right hydronephrosis. PLAN: Possible right stent placement either in the a.m. or on . We will discuss and make sure that there is no increased risk of her being placed in the lithotomy position to place a stent, given anesthesia for repeat ____.
[2016-11-01 03:35] VITALS: BP 103/65; PULSE 74; TEMP 36.3; O2SAT 93
[2016-11-01] MEDS: HYDROmorphone INJ 1 MG/ML SYR IV PRN ×3 (05:26→21:58)
[2016-11-01] MEDS: ALBUTEROL HFA 8 GM INHALER INH SCH ×4 (05:27→23:22)
[2016-11-01] MEDS: CIPROFLOXACIN / D5W 200 MG in PREMIXED IN D5W 100 ML IV SCH ×2 (05:27→18:40)
[2016-11-01 06:14] LABS: BASO % 0.1 %; BASO ABS # 0.01 K/uL (0-0.2); EOS % 0.5 %; IG% 0.3 %; LYMPH % 2.9 %; LYMPH ABS # 0.45 K/uL (1.2-3.4); MEAN CELL VOLUME 99.2 fL (80-100); MEAN CORPUSCULAR HEMOGLOBIN 32.2 pg (25-34); MEAN CORPUSCULAR HGB CONC 32.5 g/dl (32-36); MEAN PLATELET VOLUME 10.7 fL (7.4-10.4); MONO % 7.5 %; NEUT % 88.7 %; PLATELET COUNT 141 K/uL (130-400); RED BLOOD COUNT 2.42 M/uL (4.2-5.4); WHITE BLOOD COUNT 15.34 K/uL (4.8-10.8)
[2016-11-01 06:36] LABS: COMPLETE YES
[2016-11-01 06:53] LABS: BUN/CREATININE RATIO 9.5 (10-20); CALCIUM 8.3 mg/dl (8.5-10.1); CREATININE 0.85 mg/dl (0.60-1.20); MAGNESIUM 1.9 mg/dl (1.8-2.4); POTASSIUM 3.9 mmol/L (3.5-5.1)
--- NOTE | 2016-11-01 07:07 | GENITOURINARY CONSULTATION ---
DATE OF CONSULTATION: 10/31/2016 REASON FOR THE CONSULT: Right flank pain and hydronephrosis. HISTORY OF PRESENTATION: The patient is a 65-year-old female with endometrial cancer was discovered last December, who has had chemotherapy which ended in June, but has begun to have recurrences in both her chest and her abdomen. Recently, she was having severe right-sided leg pain with swelling and right-sided flank pain and had a CAT scan that showed right hydronephrosis, several weeks ago. Of note, she was felt to have had a pulmonary embolus around late May and has been on anticoagulation for this, but had negative DVT screen of the lower extremities done and also has had one on this admission. She was admitted today because of severe flank pain and had difficulty and severe pain with walking, has been difficult to control with oral pain medicine. She does have poor appetite and significant swelling in her legs. She denies any fever or chills. She has apparently had a urinary tract infection, but no fever or chills in the past. PAST MEDICAL HISTORY: Significant for metastatic endometrial carcinoma status post hysterectomy, presumed pulmonary emboli, although since this chest pain was diagnosed, she has developed multiple nodules with a cavitary lesion that is presumed cancer in her chest as well. She has medical problems include arthritis, Morton esophagitis, bronchitis, , endoscopy, GI reflux and history of pneumonia. SOCIAL HISTORY: The patient has never been a smoker. ALLERGIES: INCLUDE CAT DANDER. MEDICATIONS: She has a long list of home medications, please refer to the admitting history and physical to review this. REVIEW OF SYSTEMS: Again, please refer to the admitting history and physical for this. PHYSICAL EXAMINATION: GENERAL: The patient was drowsy, in no significant distress. HEENT: Unremarkable. LUNGS: Show no respiratory distress. NECK: Supple without adenopathy. ORTHOPEDIC: She does have right leg swelling and right-sided abdominal pain and flank pain to percussion. EXTREMITIES: Again showed pedal edema on the right side. NEUROLOGIC: She is alert and oriented without obvious focal or sensory deficit. SKIN: Normal. LABORATORY DATA: She has a slightly elevated white blood cell count. She is anemic. Urine did show 5-10 white cells. Urine culture is pending. Creatinine was within normal range at 0.96 and at PT was 13.7, PTT 39. ASSESSMENT: Right hydronephrosis secondary to what appears to be a pelvic mass pushing on the right ureter, which is probably also affecting her nerves and pelvis that may be causing her leg pain. I discussed the possibility of placing a stent with understanding that it could actually be subject to extrinsic compression and do not function properly. The alternative would be a percutaneous nephrostomy, which has its own downsides as well. I started the patient empirically on Cipro and made her tentatively n.p.o. after midnight, but told the and the patient that I will discuss it with Dr. Robles to try to make sure that the risk of her having anesthesia for stent placement would not be so great secondary to her history of pulmonary emboli, but again her recent deep vein thrombosis was scanned of lower extremities was negative, during this admission. We will continue to follow the patient along.
[2016-11-01] MEDS: ESCITALOPRAM OXALATE 10 MG TAB PO SCH (07:46)
[2016-11-01] MEDS: ATORVASTATIN 10 MG TAB PO SCH (07:46)
[2016-11-01] MEDS: DEXAMETHASONE 4 MG TAB PO SCH (07:46)
[2016-11-01] MEDS: MAGNESIUM OXIDE 400 MG TAB PO SCH (07:46)
[2016-11-01] MEDS: PANTOprazole SOD 40 MG TAB PO SCH (07:46)
[2016-11-01 07:47] VITALS: BP 107/60; PULSE 80; TEMP 36.3; O2SAT 91
[2016-11-01] MEDS: OXYCODONE HCL 10 MG TABCR (OXYCONTIN) PO SCH ×3 (07:49→19:55)
[2016-11-01] MEDS ORDERED: NON-FORMULARY MEDICATION (Phytonadione (Vitamin K) 100 MCG) PO SCH (08:00)
--- NOTE | 2016-11-01 08:11 | Hospitalist Progress Note ---
Hospitalist Progress Note Date of Service Nov 01, 2016. (Lisa Mcdonough ., JENNY) Subjective Pt evaluation today including: conversation w/ patient, conversation w/ family , physical exam, chart review, lab review, review of studies, review of inpatient medication list Voiding: no voiding problems Patient states her pain is minimally improved since admission- Right flank/ lower back radiating to right lower extremity. +decreased appetite. Patient denies any fever, chills, sweats, lightheadedness, dizziness, vision changes, CP , palpitations, edema, SOB, wheezing, cough, abdominal pain, nausea, vomiting, diarrhea, urinary symptoms, melena, numbness/tingling, weakness, anxiety/ depression, active bleeding, or new skin discoloration/changes. (Lisa Mcdonough ., CINDYC) Medications Current Inpatient Medications Medications (Trade) Dose Ordered Sig/Rohan Route Start Time Stop Time Status Last Admin Dose Admin Acetaminophen (Tylenol Tab) 650 mg Q4H PRN PO 10/31/16 10:30 11/30/16 10:29 Ondansetron HCl (Zofran Inj) 4 mg Q6H PRN IV 10/31/16 10:30 11/30/16 10:29 Albuterol (Ventolin Hfa Inhaler) 2 puffs Q6 INH 10/31/16 18:00 11/30/16 17:59 Alprazolam (Xanax Tab) 0.5 mg DAILY PRN PO 10/31/16 10:30 11/30/16 10:29 10/31/16 21:22 0.5 MG Atorvastatin Calcium (Lipitor Tab) 10 mg QAM PO 11/01/16 08:00 12/01/16 08:59 11/01/16 07:46 10 MG Enoxaparin Sodium (Lovenox Inj) 60 mg DAILY SQ 11/01/16 08:00 12/01/16 08:59 11/01/16 09:26 60 MG Escitalopram Oxalate (Lexapro Tab) 10 mg QAM PO 11/01/16 08:00 12/01/16 08:59 11/01/16 07:46 10 MG Magnesium Oxide (Mag-Ox Tab) 400 mg DAILY PO 11/01/16 08:00 12/01/16 08:59 11/01/16 07:46 400 MG Oxycodone HCl (Oxycontin Tab) 10 mg TID PO 10/31/16 14:00 11/14/16 13:59 11/01/16 07:49 10 MG Temazepam (Restoril Cap) 15 mg HS PRN PO 10/31/16 10:30 11/30/16 10:29 Pantoprazole Sodium (Protonix Tab) 40 mg QAM PO 11/01/16 08:00 12/01/16 07:59 11/01/16 07:46 40 MG Dexamethasone (Decadron Tab) 4 mg DAILY PO 11/01/16 08:00 12/01/16 08:59 11/01/16 07:46 4 MG Miscellaneous Information 1 ea 1 ea QS N/A 10/31/16 16:00 11/30/16 15:59 Ciprofloxacin/ Dextrose/Prmx (Cipro / D5w/ Premixed D5W) 100 ml @ 100 mls/hr Q12@0600,1800 IV 10/31/16 18:00 11/10/16 17:59 11/01/16 05:27 100 MLS/HR Heparin Sodium (Porcine) (Heparin 100 Unit/ml 5ml Flush) 5 ml PRN PRN IV 10/31/16 23:45 11/30/16 23:44 11/01/16 09:26 5 ML Fentanyl (Duragesic Patch) 12 mcg Q3D@0900 TD 11/01/16 09:00 11/15/16 08:59 11/01/16 09:26 12 MCG Miscellaneous (Fentanyl Patch Remove & Waste) 1 ea Q3D@0900 N/A 11/04/16 09:00 12/04/16 08:59 Miscellaneous Information (Check Fentanyl Patch Placement) 1 ea QS N/A 11/01/16 16:00 12/01/16 15:59 Oxycodone/ Acetaminophen (Percocet 5-325mg Tab) 1 tab Q4H PRN PO 11/01/16 09:00 11/15/16 08:59 11/01/16 10:32 1 TAB Gabapentin (Neurontin Cap) 300 mg TID PO 11/01/16 14:00 12/01/16 13:59 Docusate Sodium (coLACE CAP) 100 mg BID PO 11/01/16 20:00 12/01/16 19:59 Polyethylene 17 gm 17 gm DAILY PRN PO 11/01/16 09:00 12/01/16 08:59 Gentamicin Sulfate/Dextrose (Gentamicin Inj/ D5 100ml) 103 ml @ 100 mls/hr PREOP IV 11/02/16 06:00 11/02/16 18:00 Hydromorphone HCl (Dilaudid Inj) 1 mg Q1H PRN IV 11/01/16 11:00 11/15/16 10:59 (Lisa Mcdonough PA-C) Objective Vital Signs Date Time Temp Pulse Resp B/P Pulse Ox O2 Delivery O2 Flow Rate FiO2 11/01/16 07:47 36.3 80 16 107/60 91 Room Air 11/01/16 03:35 36.3 74 18 103/65 93 Room Air 10/31/16 23:46 Room Air 10/31/16 23:04 36.3 79 18 90/53 96 Room Air 84/48 10/31/16 19:50 Room Air 10/31/16 19:32 36.3 84 18 92/55 93 Room Air 10/31/16 16:00 93 Room Air 10/31/16 15:27 36.6 87 18 106/67 93 Room Air 10/31/16 11:51 36.6 88 17 127/71 98 Room Air 10/31/16 11:20 92 Room Air 10/31/16 10:55 88 16 122/67 92 Room Air 10/31/16 08:35 36.6 91 18 100/62 98 Room Air (Lisa Mcdonough PA-C) Physical Exam General Appearance: no apparent distress Eyes: normal inspection, PERRL ENT: hearing grossly normal Neck: supple Respiratory/Chest: lungs clear, no respiratory distress, no accessory muscle use Cardiovascular: regular rate, rhythm Abdomen: normal bowel sounds, non tender, soft Extremities: no pedal edema, no calf tenderness Neurologic/Psychiatric: alert, normal mood/affect, oriented x 3 Skin: warm/dry, no rash, + pallor (Lisa Mcdonough, NICHOL-C) Laboratory Results Last 24 Hours Test 10/31/16 09:22 10/31/16 11:00 11/01/16 05:35 White Blood Count 13.56 K/uL 15.34 K/uL Red Blood Count 2.48 M/uL 2.42 M/uL Hemoglobin 8.2 g/dL 7.8 g/dL Hematocrit 23.9 % 24.0 % Mean Corpuscular Volume 96.4 fL 99.2 fL Mean Corpuscular Hemoglobin 33.1 pg 32.2 pg Mean Corpuscular Hemoglobin Concent 34.3 g/dl 32.5 g/dl Platelet Count 149 K/uL 141 K/uL Mean Platelet Volume 11.0 fL 10.7 fL Neutrophils (%) (Auto) 83.0 % 88.7 % Lymphocytes (%) (Auto) 5.4 % 2.9 % Monocytes (%) (Auto) 7.9 % 7.5 % Eosinophils (%) (Auto) 3.3 % 0.5 % Basophils (%) (Auto) 0.1 % 0.1 % Neutrophils # (Auto) 11.25 K/uL 13.60 K/uL Lymphocytes # (Auto) 0.73 K/uL 0.45 K/uL Monocytes # (Auto) 1.07 K/uL 1.15 K/uL Eosinophils # (Auto) 0.45 K/uL 0.08 K/uL Basophils # (Auto) 0.02 K/uL 0.01 K/uL RDW Standard Deviation 54.3 fL 55.2 fL RDW Coefficient of Variation 15.4 % 15.4 % Immature Granulocyte % (Auto) 0.3 % 0.3 % Immature Granulocyte # (Auto) 0.04 K/uL 0.05 K/uL Red Blood Cell Morphology Unremarkable Unremarkable Prothrombin Time 13.7 SECONDS Prothromb Time International Ratio 1.3 Activated Partial Thromboplast Time 39.0 SECONDS Partial Thromboplastin Ratio 1.5 Sodium Level 131 mmol/L 140 mmol/L Potassium Level 3.2 mmol/L 3.9 mmol/L Chloride Level 92 mmol/L 103 mmol/L Carbon Dioxide Level 32 mmol/L 30 mmol/L Anion Gap 7.0 mmol/L 7.0 mmol/L Blood Urea Nitrogen 8 mg/dl 8 mg/dl Creatinine 0.96 mg/dl 0.85 mg/dl Est Creatinine Clear Calc Drug Dose 51.9 ml/min 58.6 ml/min Estimated GFR () 71.4 82.8 Estimated GFR (Non- 61.6 71.4 BUN/Creatinine Ratio 8.5 9.5 Random Glucose 119 mg/dl 118 mg/dl Calcium Level 8.5 mg/dl 8.3 mg/dl Total Bilirubin 0.4 mg/dl Direct Bilirubin 0.1 mg/dl Aspartate Amino Transf (AST/SGOT) 11 U/L Alanine Aminotransferase (ALT/SGPT) 14 U/L Alkaline Phosphatase 80 U/L Total Protein 6.5 gm/dl Albumin 2.3 gm/dl Lipase 47 U/L Urine Color YELLOW Urine Appearance CLEAR Urine pH 5.5 Urine Specific [place] 1.006 Urine Protein NEG Urine Glucose (UA) NEG Urine Ketones NEG Urine Occult Blood 1+ Urine Nitrite NEG Urine Bilirubin NEG Urine Urobilinogen NEG Urine Leukocyte Esterase SMALL Urine WBC (Auto) 5-10 /hpf Urine RBC (Auto) 0-4 /hpf Urine Hyaline Casts (Auto) 0 /lpf Urine Epithelial Cells (Auto) 10-20 /lpf Urine Bacteria (Auto) NEG Magnesium Level 1.9 mg/dl (Lisa Mcdonough, CINDYC) Assessment and Plan 65 yo female with metastatic endometrial cancer, now with evidence of spreading to the lungs, here with intractable pain Metastatic endometrial cancer- local spread in the right sided of the pelvis and now with lung nodule, adenopathy- w/ intractable pain: - Continue OxyContin 10mg TID, Dilaudid 1mg IV q1 hr PRN for breakthrough, Gabapentin 300 mg TID, Percocet q4hrs, Fentanyl patch, K-pad for pain management - Decadron 4mg daily to try to decrease swelling, help with pain - ECHO on 11/01- Left ventricular systolic function is normal. Normal diastolic function There is mild mitral regurgitation. - Heme/oncology following, appreciate recommendations - Pain management following, appreciate recommendations Right hydronephrosis: - UCx pending - Consult Urology, appreciate recommendations -- Stent placement planned for 11/02 -- IV Cipro h/o PE: - Continue Lovenox - Right leg US venous Doppler- negative for DVT - Dr. Saavedra -- LMWH Xa level 4 hours post Lovenox injection to monitor medication Dehydration: Treat w/ IVF Hypokalemia- RESOLVED: - Replace in IVF - Follow PRP Hypomagnesemia: Continue Mag-Oxide supplement 400 mg daily Dyslipidemia: Continue Lipitor 10 mg daily GERD: Continue Protonix 40 mg daily Depression: Continue Lexapro 10 mg daily and Xanax 0.5 mg PRN Insomnia: Continue Restoril 15 mg HS GI Prophylaxis: Protonix, IV Zofran PRN, Colace and/or MiraLAX DVT prophylaxis: Lovenox Code Status: LEVEL I, FULL Dispo: - From home, lives w/ - Discharge uncertain at this time (Lisa Mcdonough ., PA-C) PA Physician Supervision Note: I interviewed and examined the patient. Discussed with Lisa Mcdonough PAC and agree with findings and plan as documented in the note. Any exceptions or clarifications are listed here: None Pt continues with significant flank pain requiring parental opiates, has seen pain management, pain likley from ureteral obstruction from pelvic mass of endometrial cancer vitals stable car is reg, lungs clear, abd is with reproducible pain to exam Ureteral mechanical obstruction, for possible ureteral stent 11/02 pain management hopes that treatment of cancer with systemic chemo may shrink mass, if not successful may consider percutaneous nephrostomy tubes Documented By: George Tan (George Tan M.D.)
--- NOTE | 2016-11-01 08:27 | ECHOCARDIOGRAM REPORT ---
*NOTICE TO RECEIVING REPUBL[employer] AGENCY This information is strictly Confidential and protected under [place] law. [place] law prohibits you from making any further disclosure of this information unless further disclosure is expressly permitted by the written consent of the person to whom it pertains or is authorized by law. A general authorization for the release of medical or other information is not sufficient for this purpose. Hospital accepts no responsibility if the information is made available to any other person, INCLUDING THE PATIENT. Interpretation Summary * Name: DORCAS PARIS Study Date: 11/01/2016 06:49 AM BP: 107/60 mmHg * Patient Location: .4E\S\E404\S\1 HR: 76 * : 1950 (M/d/yyyy) Gender: Female Height: 65 in * Age: 65 yrs Ethnicity: [place] Weight: 133 lb * Ordering Physician: Deion Robles * Referring Physician: Kacie Felipe * Performed By: Mary Peraza RCS * * Reason For Study: CANDIDATE FOR ANTHRACYCLINE * BSA: 1.7 m2 * -- Conclusions -- * Left ventricular systolic function is normal. * Normal diastolic function * There is mild mitral regurgitation. * Compared to a study from 01/2016, the degree of MR is slightly worse, otherwise no change given the limited views obtained. Procedure Details * Limited views were obtained. Left Ventricle * The left ventricle is normal in size. * There is normal left ventricular wall thickness. * Left ventricular systolic function is normal. * Ejection Fraction = 55-60%. * Normal diastolic function Right Ventricle * The right ventricle is normal in size and function. Atria * The left atrial size is normal. * Right atrial size is normal. Mitral Valve * The mitral valve leaflets appear thickened, but open well. * There is mild mitral regurgitation. * The mitral regurgitant jet is posteriorly directed, which is consistent with anterior leaflet pathology. Tricuspid Valve * The tricuspid valve is not well visualized, but is grossly normal. * There is trace tricuspid regurgitation. Great Vessels * The aortic root is normal size. Pericardium/Pleural * There is no pericardial effusion. MMode 2D Measurements and Calculations IVSd 1.0 cm IVSs 1.0 cm LVIDd 3.6 cm LVIDs 2.9 cm LVPWd 1.1 cm LVPWs 1.0 cm IVS/LVPW 0.88 FS 19.3 % EDV(Teich) 54.8 ml ESV(Teich) 32.6 ml EF(Teich) 40.5 % EDV(cubed) 47.0 ml ESV(cubed) 24.7 ml EF(cubed) 47.4 % % IVS thick 1.7 % % LVPW thick -12.44 % LV mass(C)d 120.9 grams LV mass(C)dI 72.7 grams/m\S\2 LV mass(C)s 80.5 grams LV mass(C)sI 48.4 grams/m\S\2 SV(Teich) 22.2 ml SI(Teich) 13.4 ml/m\S\2 SV(cubed) 22.3 ml SI(cubed) 13.4 ml/m\S\2 Ao root diam 3.5 cm Ao root area 9.7 cm\S\2 LA dimension 2.7 cm LA/Ao 0.76 LVOT diam 2.0 cm LVOT area 3.0 cm\S\2 Doppler Measurements and Calculations MV E max deven 98.1 cm/sec MV A max deven 80.9 cm/sec MV E/A 1.2 MV P1/2t max deven 117.7 cm/sec MV P1/2t 65.0 msec MVA(P1/2t) 3.4 cm\S\2 MV dec slope 530.1 cm/sec\S\2 MV dec time 0.23 sec
[2016-11-01] MEDS ORDERED: HYDROmorphone INJ 1 MG/ML SYR IV PRN (09:00)
[2016-11-01] MEDS ORDERED: POLYETHYLENE (MIRALAX) 17 GM PACK PO PRN (09:00)
--- NOTE | 2016-11-01 09:10 | Progress Note ---
Subjective Date of Service: Nov 01, 2016. Subjective Pt evaluation today including: conversation w/ patient, chart review, lab review Voiding: no voiding problems 65 yo female with right hydro. Pt c/o right leg pain today which she associates with taking Cipro and Decadron together, and feels she has developed tendonitis. Denies abdominal or flank pain today. Denies n/v. Denies dysuria or hematuria. Cr is stable at 0.85. H&H has drifted to 7.8 and 24.0 this morning. Problem List Medical Problems: (1) Cervical radiculopathy Status: Acute (2) Dyspnea on exertion Status: Acute (3) Hydronephrosis Status: Acute (4) Precordial chest pain Status: Acute (5) Recurrent carcinoma of endometrium Status: Acute (6) Right sided abdominal pain Status: Acute (7) Ureteral obstruction, right Status: Acute Review of Systems Constitutional: No chills, No fever Respiratory: No shortness of breath Cardiac: No chest pain Abdomen: No nausea, No pain, No vomiting Musculoskeletal: + problem reported (right leg pain ) Female : No dysuria, No hematuria Heme: No abnormal bleeding/bruising Objective Vital Signs Date Time Temp Pulse Resp B/P Pulse Ox O2 Delivery O2 Flow Rate FiO2 11/01/16 07:47 36.3 80 16 107/60 91 Room Air 11/01/16 03:35 36.3 74 18 103/65 93 Room Air 10/31/16 23:46 Room Air 10/31/16 23:04 36.3 79 18 90/53 96 Room Air 84/48 10/31/16 19:50 Room Air 10/31/16 19:32 36.3 84 18 92/55 93 Room Air 10/31/16 16:00 93 Room Air 10/31/16 15:27 36.6 87 18 106/67 93 Room Air 10/31/16 11:51 36.6 88 17 127/71 98 Room Air 10/31/16 11:20 92 Room Air 10/31/16 10:55 88 16 122/67 92 Room Air Physical Exam General Appearance: no apparent distress Eyes: normal inspection ENT: hearing grossly normal Neck: no JVD Respiratory/Chest: no respiratory distress, no accessory muscle use Cardiovascular: no JVD Extremities: normal inspection Neurologic/Psychiatric: alert, normal mood/affect, oriented x 3 Skin: normal color Laboratory Results Last 24 Hours Test 10/31/16 09:22 10/31/16 11:00 11/01/16 05:35 White Blood Count 13.56 K/uL 15.34 K/uL Red Blood Count 2.48 M/uL 2.42 M/uL Hemoglobin 8.2 g/dL 7.8 g/dL Hematocrit 23.9 % 24.0 % Mean Corpuscular Volume 96.4 fL 99.2 fL Mean Corpuscular Hemoglobin 33.1 pg 32.2 pg Mean Corpuscular Hemoglobin Concent 34.3 g/dl 32.5 g/dl Platelet Count 149 K/uL 141 K/uL Mean Platelet Volume 11.0 fL 10.7 fL Neutrophils (%) (Auto) 83.0 % 88.7 % Lymphocytes (%) (Auto) 5.4 % 2.9 % Monocytes (%) (Auto) 7.9 % 7.5 % Eosinophils (%) (Auto) 3.3 % 0.5 % Basophils (%) (Auto) 0.1 % 0.1 % Neutrophils # (Auto) 11.25 K/uL 13.60 K/uL Lymphocytes # (Auto) 0.73 K/uL 0.45 K/uL Monocytes # (Auto) 1.07 K/uL 1.15 K/uL Eosinophils # (Auto) 0.45 K/uL 0.08 K/uL Basophils # (Auto) 0.02 K/uL 0.01 K/uL RDW Standard Deviation 54.3 fL 55.2 fL RDW Coefficient of Variation 15.4 % 15.4 % Immature Granulocyte % (Auto) 0.3 % 0.3 % Immature Granulocyte # (Auto) 0.04 K/uL 0.05 K/uL Red Blood Cell Morphology Unremarkable Unremarkable Prothrombin Time 13.7 SECONDS Prothromb Time International Ratio 1.3 Activated Partial Thromboplast Time 39.0 SECONDS Partial Thromboplastin Ratio 1.5 Sodium Level 131 mmol/L 140 mmol/L Potassium Level 3.2 mmol/L 3.9 mmol/L Chloride Level 92 mmol/L 103 mmol/L Carbon Dioxide Level 32 mmol/L 30 mmol/L Anion Gap 7.0 mmol/L 7.0 mmol/L Blood Urea Nitrogen 8 mg/dl 8 mg/dl Creatinine 0.96 mg/dl 0.85 mg/dl Est Creatinine Clear Calc Drug Dose 51.9 ml/min 58.6 ml/min Estimated GFR () 71.4 82.8 Estimated GFR (Non- 61.6 71.4 BUN/Creatinine Ratio 8.5 9.5 Random Glucose 119 mg/dl 118 mg/dl Calcium Level 8.5 mg/dl 8.3 mg/dl Total Bilirubin 0.4 mg/dl Direct Bilirubin 0.1 mg/dl Aspartate Amino Transf (AST/SGOT) 11 U/L Alanine Aminotransferase (ALT/SGPT) 14 U/L Alkaline Phosphatase 80 U/L Total Protein 6.5 gm/dl Albumin 2.3 gm/dl Lipase 47 U/L Urine Color YELLOW Urine Appearance CLEAR Urine pH 5.5 Urine Specific [place] 1.006 Urine Protein NEG Urine Glucose (UA) NEG Urine Ketones NEG Urine Occult Blood 1+ Urine Nitrite NEG Urine Bilirubin NEG Urine Urobilinogen NEG Urine Leukocyte Esterase SMALL Urine WBC (Auto) 5-10 /hpf Urine RBC (Auto) 0-4 /hpf Urine Hyaline Casts (Auto) 0 /lpf Urine Epithelial Cells (Auto) 10-20 /lpf Urine Bacteria (Auto) NEG Magnesium Level 1.9 mg/dl Assessment and Plan A/P: Right hydronephrosis secondary to pelvic mass AFVSS. Tx options discussed today have included a cysto with right ureteral stent placement vs referral for PCN placement. She prefers to try a stent. Risks and benefits of the procedure discussed with the pt. She understands the risks of stent failure. All questions answered. Consent obtained. Will plan for the OR tomorrow. Pt OK for a diet today from perspective. Will make her NPO after midnight. Will also seen anesthesia and medical clearance for the procedure. Will continue to follow along with primary service at this time.
[2016-11-01] MEDS: FENTANYL 12 MCG/HR TDSY TD SCH ×2 (09:26→16:09)
[2016-11-01] MEDS: ENOXAPARIN 60 MG/0.6 ML SYR SQ SCH (09:26)
[2016-11-01] MEDS: OXYCODONE/ACETAMINOPHEN 5-325 TAB PO PRN ×3 (10:32→19:55)
--- NOTE | 2016-11-01 11:31 | Pain Management Consultation ---
Pain Management Consultation Date of Consultation Nov 01, 2016. Reason for Consultation Assistance with pain management for oncologic pain. History Silvana Monroy is a 65-year-old female who is admitted to [facility] with complaints of experiencing left pelvic as well as left distal buttock and proximal leg pain. Pain is primarily located in left mid to distal buttock and perineal area and radiates to posterior suprapatellar region. Symptoms are characterized as "gnawing" sensation, burning and constant pressure-like feeling. Symptoms have been present for prosper 3 months duration since she was diagnosed of malignancy. Activities that exacerbate patient's symptoms include sitting, ambling more than 5 feet Brech to is required for daily living. Pain also occur spontaneously. Activities that alleviate patient's symptoms include none. Symptoms are rated as 9/10 on visual analog scale when severe and for/10 when minimal. Current treatments include oxycodone extended release, immediate release oxycodone as well as hydromorphone intravenously. Previous treatments include long-acting and short-acting oxycodone with minimal efficacy. Patient reports that she had difficulty adjusting her opiate analgesic regimen and to titrate the medications as she felt it was too confusing with the extended and short acting oxycodone. She felt that she was not taking her medications appropriately as result. She denies any fevers, chills, loss of bowel bladder control although she reports that she has noticed more vaginal bleeding recently. Comorbid medical conditions include endometrial carcinoma with pelvic metastasis. Past Medical/Surgical History (1) Morton's esophagus (2) Gastroesophageal reflux disease (3) Pulmonary embolism (4) Recurrent carcinoma of endometrium (5) Hydronephrosis (6) Endometrial cancer (7) Cervical radiculopathy Social / Work History Marital Status: Housing Status: lives with family Occupation: retired Allergies Coded Allergies: Cat Dander (Verified Allergy, Mild, Sneezing, 10/31/16) Medications Current Inpatient Medications Medications (Trade) Dose Ordered Sig/Rohan Route Start Time Stop Time Status Last Admin Dose Admin Acetaminophen (Tylenol Tab) 650 mg Q4H PRN PO 10/31/16 10:30 11/30/16 10:29 Ondansetron HCl (Zofran Inj) 4 mg Q6H PRN IV 10/31/16 10:30 11/30/16 10:29 Albuterol (Ventolin Hfa Inhaler) 2 puffs Q6 INH 10/31/16 18:00 11/30/16 17:59 Alprazolam (Xanax Tab) 0.5 mg DAILY PRN PO 10/31/16 10:30 11/30/16 10:29 10/31/16 21:22 0.5 MG Atorvastatin Calcium (Lipitor Tab) 10 mg QAM PO 11/01/16 08:00 12/01/16 08:59 11/01/16 07:46 10 MG Enoxaparin Sodium (Lovenox Inj) 60 mg DAILY SQ 11/01/16 08:00 12/01/16 08:59 Escitalopram Oxalate (Lexapro Tab) 10 mg QAM PO 11/01/16 08:00 12/01/16 08:59 11/01/16 07:46 10 MG Magnesium Oxide (Mag-Ox Tab) 400 mg DAILY PO 11/01/16 08:00 12/01/16 08:59 11/01/16 07:46 400 MG Oxycodone HCl (Oxycontin Tab) 10 mg TID PO 10/31/16 14:00 11/14/16 13:59 11/01/16 07:49 10 MG Temazepam (Restoril Cap) 15 mg HS PRN PO 10/31/16 10:30 11/30/16 10:29 Pantoprazole Sodium (Protonix Tab) 40 mg QAM PO 11/01/16 08:00 12/01/16 07:59 11/01/16 07:46 40 MG Hydromorphone HCl (Dilaudid Inj) 1 mg Q4 PRN IV 10/31/16 10:30 11/14/16 10:29 11/01/16 05:26 1 MG Dexamethasone (Decadron Tab) 4 mg DAILY PO 11/01/16 08:00 12/01/16 08:59 11/01/16 07:46 4 MG Miscellaneous Information 1 ea 1 ea QS N/A 10/31/16 16:00 11/30/16 15:59 Ciprofloxacin/ Dextrose/Prmx (Cipro / D5w/ Premixed D5W) 100 ml @ 100 mls/hr Q12@0600,1800 IV 10/31/16 18:00 11/10/16 17:59 11/01/16 05:27 100 MLS/HR Heparin Sodium (Porcine) (Heparin 100 Unit/ml 5ml Flush) 5 ml PRN PRN IV 10/31/16 23:45 11/30/16 23:44 Physical Exam Height & Weight: Height 5 feet, 5.00 inches. Weight 61.400 (Kilograms) 135 (Pounds) Last Vital Signs Documentation Date Time Temp Pulse Resp B/P Pulse Ox O2 Delivery O2 Flow Rate FiO2 11/01/16 07:47 36.3 80 16 107/60 91 Room Air Exam: Silvana is alert and oriented. Mood and affect are appropriate. Short-term and long-term memory is intact. Sensorium is clear. She appears to be in significant pain in sitting position where she is unable to put any weight on her right buttock. She appears frail. Inspection of lumbar spine demonstrates loss of lumbar lordosis. Palpation over the midline spinous processes intraspinal ligaments is unremarkable. Provocative testing of the facet joints is unremarkable. Provocative testing of the SI joints is unremarkable. There is minimal myofascial pain with palpation over the paraspinous musculature of the lumbar spine. Neurologically, she demonstrates intact motor strength in the lower extremities. Straight leg raising is negative for radicular pain on the right side but does cause pain in the perineal region on the right side. She had dysesthesia up to mid calf region bilaterally due to chemotherapy-induced peripheral neuropathy. She has slight edema of the right distal lower extremity compared to the left side. Laboratory / Imaging Results Laboratory Results (Last CBC): 11/01/16 05:35 Red Blood Count 2.42 L, Mean Corpuscular Volume 99.2, Mean Corpuscular Hemoglobin 32.2, Mean Corpuscular Hemoglobin Concent 32.5, Mean Platelet Volume 10.7 H, Neutrophils (%) (Auto) 88.7, Lymphocytes (%) (Auto) 2.9, Monocytes (%) ( Auto) 7.5, Eosinophils (%) (Auto) 0.5, Basophils (%) (Auto) 0.1, Neutrophils # ( Auto) 13.60 H, Lymphocytes # (Auto) 0.45 L, Monocytes # (Auto) 1.15 H, Eosinophils # (Auto) 0.08, Basophils # (Auto) 0.01 Imaging: Chest CT performed this admission demonstrates: IMPRESSION: 1. Interval development of multiple bilateral pulmonary nodules, including a lobulated cavitating 26 mm right middle lobe pulmonary nodule 2. Interval development of pathologic mediastinal adenopathy including a 35mm right paratracheal lymph node Electronically signed by: Philippe Jackson M.D. 10/31/2016 3:[address] scan of abdomen and pelvis from 10/20/16 demonstrates: IMPRESSION: 1. 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 Interval development of moderate right hydroureteronephrosis due to obstruction of the distal right ureter by the necrotic lymphadenopathy or vaginal cuff mass. 2. No bowel obstruction. 3. New 8 mm lingular nodule suggestive of metastatic disease. Electronically signed by: Cristian Osborn M.D. 10/22/2016 1:37 PM [place] Drug Monitoring Program Search Results: patient reviewed within database, no issues identified Assessment 1. Metastatic endometrial malignancy. 2. Malignant sensory related pelvic pain. 3. Patient with difficulty with oral regimen resulting in suboptimal analgesia. Recommendations 1. Recommend converting to long-acting oxycodone to transdermal fentanyl. 2. Recommend continuing oxycodone 5 mg every 4 hours when necessary for breakthrough pain. 3. Recommend adding gabapentin 300 mg by mouth 3 times a day for neuropathic effect. 4. Recommend frequent IV hydromorphone for breakthrough pain. 5. Will follow patient as an inpatient and can assume care for her analgesic regimen as an outpatient [facility] if desired after discharge. [employer] Voice Recognition This chart was completed in part utilizing [employer] Voice Recognition Software. Random word insertions, pronoun errors, and incomplete sentences are an occasional consequence of this system due to software limitations and ambient noise. Any questions or concerns about the content, text or information contained within the body of this dictation should be directly addressed to the provider for clarification.
[2016-11-01 11:33] VITALS: BP 125/71; PULSE 76; TEMP 36.5; O2SAT 92
[2016-11-01] MEDS: GABAPENTIN 300 MG CAP PO SCH ×2 (12:55→19:54)
[2016-11-01 15:12] VITALS: BP 109/62; PULSE 87; TEMP 36.4; O2SAT 92
--- NOTE | 2016-11-01 15:42 | Progress Note ---
Progress Note Date of Service Nov 01, 2016. Progress Note The patient is a 68 year old female with history of endometrial carcinoma with local spread and a single lung nodule. She is scheduled for a cysto/stent placement for relief of hydronephrosis. She underwent chemotherapy last June and had no significant complications from it. She also has GERD, anemia and hyperlipidemia. She is alert, oriented and very friendly. Her vital signs are stable with a room air sp02 of 92. Echocardiogram from today shows an EF of 55-60% with mild MR. Her H&H is 7.8/24. I believe she is an acceptable candidate for her scheduled procedure.
[2016-11-01] MEDS: CHECK FENTANYL PATCH PLACEMENT SCH (16:00)
[2016-11-01] MEDS ORDERED: NURSING VERBAL MED ORDER ONE (17:30)
[2016-11-01 19:35] VITALS: BP 115/67; PULSE 81; TEMP 36.3; O2SAT 97
[2016-11-01] MEDS: DOCUSATE SODIUM 100 MG CAP PO SCH (19:55)
[2016-11-02] VITALS (7 sets, daily range): BP systolic 128–157; BP diastolic 58–80; PULSE 82–100; TEMP 36.4–37.4; O2SAT 90–97
[2016-11-02] MEDS: CHECK FENTANYL PATCH PLACEMENT SCH ×3 (01:00→15:53)
[2016-11-02] MEDS: HYDROmorphone INJ 1 MG/ML SYR IV PRN ×4 (01:13→10:49)
[2016-11-02] MEDS: ALBUTEROL HFA 8 GM INHALER INH SCH ×3 (05:47→17:53)
[2016-11-02] MEDS ORDERED: GENTAMICIN INJ 120 MG in DEXTROSE 5% 100ML 100 ML IV SCH (06:00)
[2016-11-02 06:09] LABS: HEMATOCRIT 27.8 % (37-47); MEAN CELL VOLUME 100.4 fL (80-100); MEAN CORPUSCULAR HEMOGLOBIN 32.1 pg (25-34); PLATELET COUNT 203 K/uL (130-400); RED BLOOD COUNT 2.77 M/uL (4.2-5.4); WHITE BLOOD COUNT 19.26 K/uL (4.8-10.8)
[2016-11-02 06:48] LABS: BUN/CREATININE RATIO 10.6 (10-20); CALCIUM 9.4 mg/dl (8.5-10.1); CREATININE 1.1 mg/dl (0.60-1.20); POTASSIUM 3.4 mmol/L (3.5-5.1)
[2016-11-02] MEDS ORDERED: POTASSIUM CHLORIDE 10 MEQ TABCR PO ONE (09:00)
[2016-11-02] MEDS ORDERED: MIDAZOLAM HCL 1 MG/ML 2ML VIAL ONE (09:52)
[2016-11-02] MEDS ORDERED: FENTANYL CITRATE INJ 50 MCG/1 ML 2 ML VIAL ONE (09:53)
[2016-11-02] MEDS ORDERED: HYDROmorphone INJ 1 MG/ML SYR IV ONE (11:00)
[2016-11-02] MEDS: GABAPENTIN 300 MG CAP PO SCH ×3 (11:05→19:52)
[2016-11-02] MEDS: OXYCODONE HCL 10 MG TABCR (OXYCONTIN) PO SCH ×3 (11:05→19:51)
[2016-11-02] MEDS ORDERED: LACTATED RINGER'S 1000ML 1,000 ML IV PRN (11:18)
[2016-11-02] MEDS ORDERED: CONRAY 30% 150ML BOTTLE ONE (11:20)
[2016-11-02] MEDS ORDERED: ONDANSETRON INJ 2 MG/ML 2 ML VIAL IV PRN (11:30)
[2016-11-02] MEDS ORDERED: FENTANYL CITRATE INJ 50 MCG/1 ML 2 ML VIAL IV PRN (11:30)
--- NOTE | 2016-11-02 11:31 | History & Physical Bridge Note ---
H&P Re-Evaluation Bridge Note: I have examined the patient, reviewed the History & Physical and in the interval since the performance of the History & Physical I have noted the following changes of clinical significance: No changes noted
[2016-11-02] MEDS ORDERED: KETAMINE HCL INJ 50 MG/ML 10 ML VIAL ONE (11:46)
[2016-11-02] MEDS ORDERED: PROPOFOL IV EMULSION 10 MG/ML 20 ML VIAL IV ONE (12:24)
--- NOTE | 2016-11-02 12:29 | [facility] Post Operative Brief Note ---
Immediate Operative Summary Operative Date Nov 02, 2016. Pre-Operative Diagnosis Right hydronephrosis secondary to pelvic mass Post-Operative Diagnosis Right hydronephrosis secondary to pelvic mass Procedure(s) Performed Cystoscopy, Right Retrograde Pyelography, Right Ureteral Stent Insertion Surgeon Dr. Mesfin [facility] Claims Examiner Surgeon(s) none Estimated Blood Loss 0 ML Findings Good stent position on fluoro, some contrast extravasation at the end of the case, ? source RPG vs. wire / stent placement, + hydronephrotic drip Specimens None per surgeon Drains 6 fr multilength stent on right Anesthesia MAC Complication(s) None Disposition Recovery Room / PACU
--- NOTE | 2016-11-02 12:38 | Anesthesiology Progress Note ---
Anesthesia Post Op Note Date & Time Nov 02, 2016 at 12:37 Vital Signs Pain Intensity: 0 Vital Signs Past 12 Hours Date Time Temp Pulse Resp B/P Pulse Ox O2 Delivery O2 Flow Rate FiO2 11/02/16 12:30 37.6 99 14 162/86 96 Nasal Cannula 2 11/02/16 12:20 94 14 146/80 100 Mask 5 11/02/16 12:10 37.9 96 14 144/78 100 Mask 10 11/02/16 11:00 Room Air 11/02/16 07:47 36.8 100 16 128/58 97 Room Air 11/02/16 04:04 36.8 91 16 130/66 96 Room Air 11/02/16 01:00 Room Air Notes Mental Status: alert / awake / arousable, participated in evaluation Pt Amnestic to Procedure: Yes Nausea / Vomiting: adequately controlled Pain: adequately controlled Airway Patency, RR, SpO2: stable & adequate BP & HR: stable & adequate Hydration State: stable & adequate Anesthetic Complications: no major complications apparent Pt doing well.
--- NOTE | 2016-11-02 12:51 | DIAGNOSTIC IMAGING REPORT ---
INTRAOPERATIVE RADIOGRAPHS CLINICAL HISTORY: Right sided ureterogram and ureteral stent placement. Endometrial cancer with right ureteral obstruction. Fluoroscopy time: 73 seconds FINDINGS: 8 spot fluoroscopic views of the right abdomen from a ureteral stent placement procedure are correlated with abdominal CT dated 10/22/2016. There is cannulation of the right ureter. There is moderate right hydroureteronephrosis. The final images show a ureteral stent being deployed. IMPRESSION: Intraoperative images from a right ureteral stent placement procedure as above. See operative report for detailed findings. Electronically signed by: Dom Sims M.D. 11/02/2016 12:49 PM Dictated Date/Time: 11/02/2016 12:47 PM
--- NOTE | 2016-11-02 13:40 | Progress Note ---
Subjective Date of Service: Nov 02, 2016. Subjective Pt has considerable pain pre procedure, abdominal and flank pain, is voiding and did have a bowel movement Problem List Medical Problems: (1) Cervical radiculopathy Status: Acute (2) Dyspnea on exertion Status: Acute (3) Hydronephrosis Status: Acute (4) Precordial chest pain Status: Acute (5) Recurrent carcinoma of endometrium Status: Acute (6) Right sided abdominal pain Status: Acute (7) Ureteral obstruction, right Status: Acute Review of Systems Constitutional: + weakness, No chills, No fever Respiratory: No cough, No shortness of breath Cardiac: No chest pain, No edema Abdomen: + nausea, + pain, No constipation Musculoskeletal: + joint pain, + muscle pain Psychiatric: No anhedonism, No depression symptoms Objective Vital Signs Date Time Temp Pulse Resp B/P Pulse Ox O2 Delivery O2 Flow Rate FiO2 11/02/16 12:30 37.6 99 14 162/86 96 Nasal Cannula 2 11/02/16 12:20 94 14 146/80 100 Mask 5 11/02/16 12:10 37.9 96 14 144/78 100 Mask 10 11/02/16 11:00 Room Air 11/02/16 07:47 36.8 100 16 128/58 97 Room Air 11/02/16 04:04 36.8 91 16 130/66 96 Room Air 11/02/16 01:00 Room Air 11/02/16 00:06 36.4 82 20 131/68 96 Room Air 11/01/16 20:00 Room Air 11/01/16 19:35 36.3 81 16 115/67 97 Room Air 11/01/16 15:36 Room Air 11/01/16 15:12 36.4 87 18 109/62 92 Room Air Physical Exam General Appearance: WD/WN, + moderate distress Neck: supple, no JVD Respiratory/Chest: chest non-tender, lungs clear, normal breath sounds Cardiovascular: regular rate, rhythm, no murmur Abdomen: normal bowel sounds, soft, + guarding, + tenderness Extremities: no pedal edema, no calf tenderness Neurologic/Psychiatric: alert, oriented x 3 Laboratory Results Last 24 Hours Test 11/01/16 13:48 11/02/16 05:20 Heparin Anti-Xa Act, Low Molec Wt 0.84 IU/ML White Blood Count 19.26 K/uL Red Blood Count 2.77 M/uL Hemoglobin 8.9 g/dL Hematocrit 27.8 % Mean Corpuscular Volume 100.4 fL Mean Corpuscular Hemoglobin 32.1 pg Mean Corpuscular Hemoglobin Concent 32.0 g/dl RDW Standard Deviation 58.0 fL RDW Coefficient of Variation 15.7 % Platelet Count 203 K/uL Mean Platelet Volume 11.0 fL Sodium Level 142 mmol/L Potassium Level 3.4 mmol/L Chloride Level 102 mmol/L Carbon Dioxide Level 32 mmol/L Anion Gap 8.0 mmol/L Blood Urea Nitrogen 12 mg/dl Creatinine 1.10 mg/dl Est Creatinine Clear Calc Drug Dose 45.3 ml/min Estimated GFR () 60.6 Estimated GFR (Non- 52.3 BUN/Creatinine Ratio 10.6 Random Glucose 104 mg/dl Calcium Level 9.4 mg/dl Assessment and Plan 65F metastatic endometrial cancer, with ureteral obstruction from extrinsic compression, lung mets and intractable pain Metastatic endometrial cancer- w/ intractable pain: - Pain Management consult is assisting, OxyContin 10mg TID, Dilaudid 1mg IV q1 hr PRN for breakthrough, Gabapentin 300 mg TID, Percocet q4hrs, Fentanyl patch, - Decadron 4mg daily to try to decrease swelling, help with pain - ECHO on 11/01- . Normal Right hydronephrosis:Stent placement 11/02 -- IV Cipro was not tolerated by pt feels it makes joints hurt, will not add antibiotic unless culture driven h/o PE: Lovenox - Right leg US venous Doppler- negative for DVT - Dr. Saavedra -- LMWH Xa level 4 hours post Lovenox injection to monitor medication Hypomagnesemia: Continue Mag-Oxide supplement 400 mg daily Depression: Lexapro 10 mg daily and Xanax 0.5 mg PRN DVT prophylaxis: Lovenox Code Status: LEVEL I, FULL Documented By: George Tan
[2016-11-02] MEDS: ESCITALOPRAM OXALATE 10 MG TAB PO SCH (13:48)
[2016-11-02] MEDS: DEXAMETHASONE 4 MG TAB PO SCH (13:48)
[2016-11-02] MEDS: DOCUSATE SODIUM 100 MG CAP PO SCH ×2 (13:49→19:51)
[2016-11-02] MEDS: ATORVASTATIN 10 MG TAB PO SCH (13:49)
[2016-11-02] MEDS: MAGNESIUM OXIDE 400 MG TAB PO SCH (13:49)
[2016-11-02] MEDS: ENOXAPARIN 60 MG/0.6 ML SYR SQ SCH (13:50)
[2016-11-02] MEDS: PANTOprazole SOD 40 MG TAB PO SCH (13:50)
--- NOTE | 2016-11-02 15:19 | Pharmacy Progress Note ---
Anticoagulant Dosing Consult Date of Service: Nov 02, 2016. Pharmacy Dosing Scope Pharmacy is consulted to evaluate LOVENOX dosing therapy, order appropriate labs and adjust drug dose/frequency. Subjective The patient is a 65 year old female admitted on Oct 31, 2016 at 10:29 for Intractable Abdominal Pain,Recurrent Carcinoma Of. Patient is currently on day >5 of THERAPEUTIC LOVENOX 60mg SQ daily for h/o PE, active cancer. Pertinent PMH: Objective Height (Feet): 5 Height (Inches): 5.00 Weight (Kilograms): 62.000 Laboratory Results: Last 24 Hours Test 11/02/16 05:20 Blood Urea Nitrogen 12 mg/dl (7-18) Creatinine 1.10 mg/dl (0.60-1.20) Hematocrit 27.8 % (37-47) Hemoglobin 8.9 g/dL (12.0-16.0) Platelet Count 203 K/uL (130-400) Last 72 Hours Test 10/31/16 09:22 11/01/16 05:35 11/01/16 13:48 11/02/16 05:20 Alanine Aminotransferase (ALT/SGPT) 14 U/L Aspartate Amino Transf (AST/SGOT) 11 U/L Direct Bilirubin 0.1 mg/dl White Blood Count 13.56 K/uL 15.34 K/uL Red Blood Count 2.48 M/uL 2.42 M/uL Hemoglobin 8.2 g/dL 7.8 g/dL Hematocrit 23.9 % 24.0 % Mean Corpuscular Volume 96.4 fL 99.2 fL Mean Corpuscular Hemoglobin 33.1 pg 32.2 pg Mean Corpuscular Hemoglobin Concent 34.3 g/dl 32.5 g/dl Platelet Count 149 K/uL 141 K/uL 203 K/uL Mean Platelet Volume 11.0 fL 10.7 fL Neutrophils (%) (Auto) 83.0 % 88.7 % Lymphocytes (%) (Auto) 5.4 % 2.9 % Monocytes (%) (Auto) 7.9 % 7.5 % Eosinophils (%) (Auto) 3.3 % 0.5 % Basophils (%) (Auto) 0.1 % 0.1 % Neutrophils # (Auto) 11.25 K/uL 13.60 K/uL Lymphocytes # (Auto) 0.73 K/uL 0.45 K/uL Monocytes # (Auto) 1.07 K/uL 1.15 K/uL Eosinophils # (Auto) 0.45 K/uL 0.08 K/uL Basophils # (Auto) 0.02 K/uL 0.01 K/uL Prothromb Time International Ratio 1.3 Total Bilirubin 0.4 mg/dl Heparin Anti-Xa Act, Low Molec Wt 0.84 IU/ML Recent Anticoagulant Meds Item Value Date Time Enoxaparin Sodium 60 mg 11/01/16 0800 (Lovenox Inj) DAILY/SQ 11/02/16 1350 Assessment & Plan Regarding THERAPEUTIC LOVENOX: * Ms Monroy is a current patient in the [facility] Out[facility]. * I discussed the case with Dr. Felipe, [facility] Fur Ironer. * Prior to admission, the patient had been receiving LOVENOX 60mg SQ daily as an outpatient for > 5 days. * Peak Anti-Factor Xa level drawn 4 hours post-Lovenox dose on 11/01 = 0.84 IU/ mL. * Goal Anti-Factor Xa level is >/= 1.0. * Will increase LOVENOX to 80mg SQ once a day (~1.3mg/kg), starting on 11/03. * Recommend recheck of Anti-Factor Xa level in 5-7 days, if still admitted, or will be done via [facility] upon discharge. We will continue to monitor this patient and make adjustments as needed. Thank you.
--- NOTE | 2016-11-02 16:01 | OPERATIVE REPORT ---
DATE OF OPERATION: 11/02/2016 PREOPERATIVE DIAGNOSIS: Right hydronephrosis with intractable flank pain, metastatic endometrial cancer. POSTOPERATIVE DIAGNOSIS: Same. PROCEDURE: Cystoscopy, right retrograde pyelography, right ureteral stent placement. SURGEON: Dr. Mesfin Kirkland. E [employer] SOLUTION ARCHITECT: None. ANESTHESIA: Monitored anesthesia care with sedation. ESTIMATED BLOOD LOSS: Minimal. DRAINS LEFT IN PLACE: Include a 6-Lebanese multilength stent on the right hand side. COMPLICATIONS: None. FINDINGS: Indurated pelvic mass, right greater than left on bimanual examination involving the bladder and the source of obstruction, good stent position after completion of case, extravasation of contrast at the end of the case. Questionably due to retrograde pyelogram versus wire or open ended catheter placement. Hydronephrotic drip after placement of stent. SPECIMENS SENT TO PATHOLOGY: None. BRIEF HISTORY: Ms. Monroy is a 65-year-old female who has been seen by our service for history of metastatic endometrial cancer for which she is pending chemotherapy. She has been admitted with a right-sided leg and flank pain. CT scan imaging is reviewed demonstrating a right pelvic mass with moderate hydroureteronephrosis. This is felt to be the source of her discomfort. She is being brought down today for stent placement. Informed consent is reviewed with the patient and her today who vocalized good understanding of the treatment plan. Please see urology consultation and progress notes in the chart. PROCEDURE: The patient was properly identified and brought to the operative suite after identification of appropriate consent on the chart. Intravenous gentamicin was provided for antibiotic coverage. Preprocedure SCDs used for DVT prophylaxis, lower extremity Doppler ultrasound was negative for the presence of a DVT preoperatively. Monitored anesthesia care with sedation was initiated and the patient was prepped and draped in standard fashion for this procedure. real time analyst-out procedure was followed. A readily palpable indurated pelvic mass was appreciated at the vaginal canal on attempts at passing the cystoscope. A 22-Lebanese cystoscope sheath was passed over an obturator and a cystoscope was introduced into the bladder. Bladder was surveyed in its entirety including 30 and 70 lenses demonstrated no papillary lesions or calculi but posterior bladder wall edema, right greater than left, consistent with extra vesicle infiltration of the bladder also consistent with the patient's CT imaging findings. Right-sided ureteral orifice was addressed using a 70 degree lens with a deflecting bridge and a retrograde pyelography was performed. A narrow caliber segment of the ureter distally at the ureterovesical junction was appreciated for approximately 2 cm followed by a hydronephrotic ureter with calyceal dilation up to the level of the kidney. Sensor tip guidewire was introduced without difficulties and this was followed by a 6-Lebanese 26 cm multilength ureteral stent. As the stent was being advanced extravasation of contrast was appreciated at this stage of the procedure approximately the ureter. Wire however remained well coiled within an upper pole kimberly and clearly within the collecting system. It was not clear whether this was due to pressure on retrograde pyelography or perhaps some small laceration with placement of the wire. In any case, the stent was able to be advanced without significant difficulty with redundant coil being present within the renal pelvis and full coil present within the bladder. Hydronephrotic drip via the ureteral stent openings was clearly visible of clear contrast and urine mixture. Bladder was drained and cystoscope was removed, anesthesia was reversed. The patient was transferred to recovery room in stable condition. FOLLOW-UP CARE: The patient will be readmitted to the floor for further management per the primary service. I attest to the content of the Intraoperative Record and any orders documented therein. Any exceptio ns are noted below.
[2016-11-03 03:56] VITALS: BP 146/73; PULSE 98; TEMP 36.9; O2SAT 93
[2016-11-03] MEDS: HYDROmorphone INJ 1 MG/ML SYR IV PRN ×2 (04:38→07:23)
[2016-11-03] MEDS: ALBUTEROL HFA 8 GM INHALER INH SCH ×4 (06:00→11:43)
[2016-11-03 06:10] LABS: HEMATOCRIT 26.1 % (37-47); MEAN CELL VOLUME 99.6 fL (80-100); MEAN CORPUSCULAR HEMOGLOBIN 32.8 pg (25-34); PLATELET COUNT 182 K/uL (130-400); RED BLOOD COUNT 2.62 M/uL (4.2-5.4); WHITE BLOOD COUNT 19.64 K/uL (4.8-10.8)
[2016-11-03 06:53] LABS: BUN/CREATININE RATIO 12.5 (10-20); CALCIUM 8.9 mg/dl (8.5-10.1); CREATININE 0.75 mg/dl (0.60-1.20); POTASSIUM 3.5 mmol/L (3.5-5.1)
[2016-11-03 07:36] VITALS: BP 158/70; PULSE 97; TEMP 36.6; O2SAT 92
[2016-11-03 08:00] VITALS: O2SAT 93
--- NOTE | 2016-11-03 08:07 | Progress Note ---
Subjective Date of Service: Nov 03, 2016. Subjective Pt evaluation today including: conversation w/ patient, physical exam, chart review, lab review 65 year old female s/p right ureteral stent placement for right sided hydronephrosis due to pelvic mass. hx of endometrial cancer. Pt is feeling okay post op. Feels fatigued most likely from anesthesia. Tolerating stent okay. Notes urinary frequency, ureteral spasms and intermittent hematuria- discussed these are common with ureteral stents. AFVSS. White is elevated. Creatinine normal. Problem List Medical Problems: (1) Cervical radiculopathy Status: Acute (2) Dyspnea on exertion Status: Acute (3) Hydronephrosis Status: Acute (4) Precordial chest pain Status: Acute (5) Recurrent carcinoma of endometrium Status: Acute (6) Right sided abdominal pain Status: Acute (7) Ureteral obstruction, right Status: Acute Review of Systems Constitutional: No chills, No fever ENT: No hearing loss Respiratory: No cough, No shortness of breath Cardiac: No chest pain Abdomen: + see HPI Female : + see HPI Neurologic: No memory loss Psychiatric: No depression symptoms Heme: No abnormal bleeding/bruising Endo: + fatigue Objective Vital Signs Date Time Temp Pulse Resp B/P Pulse Ox O2 Delivery O2 Flow Rate FiO2 11/03/16 07:36 36.6 97 18 158/70 92 Room Air 11/03/16 03:56 36.9 98 18 146/73 93 Room Air 11/03/16 00:00 Room Air 11/02/16 23:13 36.6 96 18 157/80 94 Room Air 11/02/16 19:47 36.6 94 18 146/76 90 Room Air 11/02/16 16:16 37.4 100 18 148/74 94 Room Air 11/02/16 16:00 96 Room Air 11/02/16 12:30 37.6 99 14 162/86 96 Nasal Cannula 2 11/02/16 12:20 94 14 146/80 100 Mask 5 11/02/16 12:10 37.9 96 14 144/78 100 Mask 10 11/02/16 11:00 Room Air Physical Exam General Appearance: WD/WN, no apparent distress ENT: hearing grossly normal Neck: no JVD Extremities: normal range of motion Neurologic/Psychiatric: alert, normal mood/affect, oriented x 3 Skin: normal color, warm/dry Laboratory Results Last 24 Hours Test 11/03/16 05:18 White Blood Count 19.64 K/uL Red Blood Count 2.62 M/uL Hemoglobin 8.6 g/dL Hematocrit 26.1 % Mean Corpuscular Volume 99.6 fL Mean Corpuscular Hemoglobin 32.8 pg Mean Corpuscular Hemoglobin Concent 33.0 g/dl RDW Standard Deviation 59.1 fL RDW Coefficient of Variation 16.3 % Platelet Count 182 K/uL Mean Platelet Volume 11.0 fL Sodium Level 140 mmol/L Potassium Level 3.5 mmol/L Chloride Level 101 mmol/L Carbon Dioxide Level 32 mmol/L Anion Gap 7.0 mmol/L Blood Urea Nitrogen 9 mg/dl Creatinine 0.75 mg/dl Est Creatinine Clear Calc Drug Dose 66.4 ml/min Estimated GFR () 96.3 Estimated GFR (Non- 83.1 BUN/Creatinine Ratio 12.5 Random Glucose 107 mg/dl Calcium Level 8.9 mg/dl Assessment and Plan Right hydronephrosis d/t pelvic mass S/P right ureteral stent. Pt notes some stent discomfort and urinary frequency- will start oxybutynin for ureteral and bladder spasms. Recommend using at home as well TID prn. Reassured that hematuria is common with stents. Otherwise doing okay post op. Ok to d/c when okay with primary service.
--- NOTE | 2016-11-03 08:08 | Anesthesiology Progress Note ---
Anesthesia Post Op Note Date & Time Nov 03, 2016 at 08:07 Vital Signs Pain Intensity: 6.0 Vital Signs Past 12 Hours Date Time Temp Pulse Resp B/P Pulse Ox O2 Delivery O2 Flow Rate FiO2 11/03/16 07:36 36.6 97 18 158/70 92 Room Air 11/03/16 03:56 36.9 98 18 146/73 93 Room Air 11/03/16 00:00 Room Air 11/02/16 23:13 36.6 96 18 157/80 94 Room Air Notes Mental Status: alert / awake / arousable, participated in evaluation Pt Amnestic to Procedure: Yes Nausea / Vomiting: adequately controlled Pain: adequately controlled Airway Patency, RR, SpO2: stable & adequate BP & HR: stable & adequate Hydration State: stable & adequate Anesthetic Complications: no major complications apparent
[2016-11-03] MEDS: CHECK FENTANYL PATCH PLACEMENT SCH ×2 (08:33)
[2016-11-03] MEDS: DEXAMETHASONE 4 MG TAB PO SCH (08:37)
[2016-11-03] MEDS: DOCUSATE SODIUM 100 MG CAP PO SCH (08:37)
[2016-11-03] MEDS: OXYCODONE HCL 10 MG TABCR (OXYCONTIN) PO SCH (08:37)
[2016-11-03] MEDS: PANTOprazole SOD 40 MG TAB PO SCH (08:37)
[2016-11-03] MEDS: GABAPENTIN 300 MG CAP PO SCH (08:37)
[2016-11-03] MEDS: MAGNESIUM OXIDE 400 MG TAB PO SCH (08:38)
[2016-11-03] MEDS: ATORVASTATIN 10 MG TAB PO SCH (08:38)
[2016-11-03] MEDS: ESCITALOPRAM OXALATE 10 MG TAB PO SCH (08:38)
[2016-11-03] MEDS ORDERED: OXYBUTYNIN CHLORIDE 5 MG TAB PO PRN (08:45)
--- NOTE | 2016-11-03 10:35 | Hematology/Oncology Prog Note ---
Hematology/Onc Progress Note Date of Service Nov 03, 2016. Diagnoses Metastatic endometrial carcinoma Medications Medications Administered Medications (Trade) Dose Ordered Sig/Rohan Route Start Time Stop Time Status Last Admin Dose Admin Sodium Chloride 250 ml @ 999 mls/hr Q16M STAT IV 10/31/16 08:58 10/31/16 09:13 DC 10/31/16 09:43 999 MLS/HR Sodium Chloride (Nss 1000ml) 1,000 ml @ 100 mls/hr Q10H STAT IV 10/31/16 08:58 10/31/16 12:35 DC 10/31/16 09:49 100 MLS/HR Morphine Sulfate (MoRPHine SULFATE INJ) 4 mg NOW STAT IV 10/31/16 08:58 10/31/16 09:01 DC 10/31/16 09:43 4 MG Ondansetron HCl 4 mg 4 mg NOW STAT IV 10/31/16 08:58 10/31/16 09:01 DC 10/31/16 09:43 4 MG Potassium Chloride/Sodium Chloride (Nss + 20meq KCl 1000ml) 1,000 ml @ 100 mls/hr Q10H IV 10/31/16 12:45 10/31/16 22:44 DC 10/31/16 13:51 100 MLS/HR Alprazolam (Xanax Tab) 0.5 mg DAILY PRN PO 10/31/16 10:30 11/30/16 10:29 10/31/16 21:22 0.5 MG Atorvastatin Calcium (Lipitor Tab) 10 mg QAM PO 11/01/16 08:00 12/01/16 08:59 11/03/16 08:38 10 MG Enoxaparin Sodium (Lovenox Inj) 60 mg DAILY SQ 11/01/16 08:00 11/02/16 15:09 DC 11/02/16 13:50 60 MG Escitalopram Oxalate (Lexapro Tab) 10 mg QAM PO 11/01/16 08:00 12/01/16 08:59 11/03/16 08:38 10 MG Magnesium Oxide (Mag-Ox Tab) 400 mg DAILY PO 11/01/16 08:00 12/01/16 08:59 11/03/16 08:38 400 MG Oxycodone HCl (Oxycontin Tab) 10 mg TID PO 10/31/16 14:00 11/14/16 13:59 11/03/16 08:37 10 MG Temazepam (Restoril Cap) 15 mg HS PRN PO 10/31/16 10:30 11/30/16 10:29 11/02/16 01:21 15 MG Pantoprazole Sodium (Protonix Tab) 40 mg QAM PO 11/01/16 08:00 12/01/16 07:59 11/03/16 08:37 40 MG Hydromorphone HCl (Dilaudid Inj) 1 mg Q4 PRN IV 10/31/16 10:30 11/01/16 08:59 DC 11/01/16 05:26 1 MG Dexamethasone (Decadron Tab) 4 mg NOW STAT PO 10/31/16 10:41 10/31/16 10:42 DC 10/31/16 10:50 4 MG Dexamethasone 4 mg 4 mg DAILY PO 11/01/16 08:00 12/01/16 08:59 11/03/16 08:37 4 MG Ciprofloxacin/ Dextrose/Prmx (Cipro / D5w/ Premixed D5W) 100 ml @ 100 mls/hr Q12@0600,1800 IV 10/31/16 18:00 11/01/16 19:01 DC 11/01/16 05:27 100 MLS/HR Heparin Sodium (Porcine) (Heparin 100 Unit/ml 5ml Flush) 5 ml PRN PRN IV 10/31/16 23:45 11/30/16 23:44 11/03/16 07:23 5 ML Hydromorphone HCl (Dilaudid Inj) 1 mg Q3HWA PRN IV 11/01/16 09:00 11/01/16 10:23 DC 11/01/16 09:19 1 MG Fentanyl (Duragesic Patch) 12 mcg Q3D@0900 TD 11/01/16 09:00 11/15/16 08:59 11/01/16 16:09 12 MCG Miscellaneous Information (Check Fentanyl Patch Placement) 1 ea QS N/A 11/01/16 16:00 12/01/16 15:59 11/03/16 08:33 1 EA Oxycodone/ Acetaminophen (Percocet 5-325mg Tab) 1 tab Q4H PRN PO 11/01/16 09:00 11/15/16 08:59 11/01/16 19:55 1 TAB Gabapentin (Neurontin Cap) 300 mg TID PO 11/01/16 14:00 12/01/16 13:59 11/03/16 08:37 300 MG Docusate Sodium 100 mg 100 mg BID PO 11/01/16 20:00 12/01/16 19:59 11/03/16 08:37 100 MG Gentamicin Sulfate/Dextrose (Gentamicin Inj/ D5 100ml) 103 ml @ 100 mls/hr PREOP IV 11/02/16 06:00 11/02/16 18:00 DC 11/02/16 11:34 100 MLS/HR Hydromorphone HCl (Dilaudid Inj) 1 mg Q1H PRN IV 11/01/16 11:00 11/08/16 10:59 11/03/16 07:23 1 MG Potassium Chloride (Klor-Con M10) 30 meq TODAY@0900 ONCE PO 11/02/16 09:00 11/02/16 09:01 DC 11/02/16 13:47 30 MEQ Iothalamate Meglumine (Conray 30%) 150 ml STK-MED ONCE .ROUTE 11/02/16 11:20 11/02/16 11:21 DC 11/02/16 11:50 20 ML Subjective Seems much more comfortable now Review of Systems: Constitutional: Negative for night sweats, or fever Eyes: Negative for event change of vision ENT: Negative for epistaxis, nasal discharge, sore throat, or deafness Cardiovascular: Negative for chest pain, palpitations, dizziness, diaphoresis Respiratory: Negative for new shortness of breath,hemoptysis, or purulent cough Gastrointestinal: Negative for diarrhea, hematemesis, melena, nausea, vomiting , or dyspepsia Integumentary (skin): Negative for rash or jaundice discoloration Genitourinary: Negative for urinary frequency, hematuria, or dysuria Neurological: Negative for weakness, seizure activity, headache, or dizziness Lymphatic/Hematologic: Negative for petechiae, bleeding or new adenopathy Musculoskeletal: Negative for new joint or back pain Allergic/Immunologic: Negative for unusual rash or pruritis. Vital Signs Vital Signs Past 12 Hours Date Time Temp Pulse Resp B/P Pulse Ox O2 Delivery O2 Flow Rate FiO2 11/03/16 08:00 93 Room Air 11/03/16 07:36 36.6 97 18 158/70 92 Room Air 11/03/16 03:56 36.9 98 18 146/73 93 Room Air 11/03/16 00:00 Room Air 11/02/16 23:13 36.6 96 18 157/80 94 Room Air Physical Exam Constitutional: vitals are stable. Eyes: Eyes are ROSETTE EOMI without conjuctival erythema or icterus. ENT: External examination was negative for masses. Neck: Negative for masses or palpable thyromegaly Respiratory: Lung sounds were generally clear bilaterally Cardiovascular: Heart was RRR without significant murmur, gallops aoe rubs Gastrointestinal: No palpable hepatic or splenomegaly. The abdomen was soft with normal bowel sounds. Lymphatic system: there was no palpable peripheral lymphadenopathy Musculoskeletal System: The musculoskeletal system seemed concordant with age. Skin: The skin was negative for jaundice. Neurologic exam: The exam was negative for any focal findings. Deep tendon reflexes were equal and symmetrical. Psychiatric exam: Was essentially negative with normal mood and effect. Breast exam: Not done Extremities: Negative for significant edema Laboratory Last 24 Hours Test 11/03/16 05:18 White Blood Count 19.64 K/uL Red Blood Count 2.62 M/uL Hemoglobin 8.6 g/dL Hematocrit 26.1 % Mean Corpuscular Volume 99.6 fL Mean Corpuscular Hemoglobin 32.8 pg Mean Corpuscular Hemoglobin Concent 33.0 g/dl RDW Standard Deviation 59.1 fL RDW Coefficient of Variation 16.3 % Platelet Count 182 K/uL Mean Platelet Volume 11.0 fL Sodium Level 140 mmol/L Potassium Level 3.5 mmol/L Chloride Level 101 mmol/L Carbon Dioxide Level 32 mmol/L Anion Gap 7.0 mmol/L Blood Urea Nitrogen 9 mg/dl Creatinine 0.75 mg/dl Est Creatinine Clear Calc Drug Dose 66.4 ml/min Estimated GFR () 96.3 Estimated GFR (Non- 83.1 BUN/Creatinine Ratio 12.5 Random Glucose 107 mg/dl Calcium Level 8.9 mg/dl Assessment & Plan CT scan of the chest reviewed and pulmonary nodules consistent with metastatic disease were seen. LVEF is acceptable. We had planned to begin single agent Doxil. I suspect with her pain being fairly relieved now that discharge is rather imminent. We will see whether we can conduct a chemotherapy talk in our clinic today or on the floor possible. She'll replaced on the chemotherapy schedule for Sunday of next week to begin. She was informed today of the CT of the chest findings. Appreciate hospitalist, anesthesia, and urology help
[2016-11-03] MEDS: ALPRAZOLAM 0.5 MG TAB PO PRN (11:41)
[2016-11-03] MEDS ORDERED: NRN300 PO (11:59)
[2016-11-03] MEDS ORDERED: DTR5 PO (11:59)
[2016-11-03] MEDS ORDERED: OXYSR10 PO (11:59)
[2016-11-03] MEDS ORDERED: LVNIS80 SQ (11:59)
[2016-11-03] MEDS ORDERED: OXYC1CAP5 PO (11:59)
[2016-11-03 12:02] VITALS: BP 177/84; PULSE 95; TEMP 36.6; O2SAT 91
--- NOTE | 2016-11-03 12:11 | Discharge Instructions ---
Discharge Instructions Date of Service Nov 03, 2016. Admission Reason for Admission: Intractable Abdominal Pain,Recurrent Carcinoma Of Discharge Discharge Diagnosis / Problem: Intractable pain; metastatic carcinoma Discharge Goals Goal(s): Decrease discomfort, Improve function, Increase independence, Improve disease control, Improve nutritional status, Diagnostic testing, Therapeutic intervention, Prevent Disease Progression Activity Recommendations Activity Limitations: resume your previous activity . Instructions / Follow-Up Instructions / Follow-Up New/changed medications: 1. Scripts given for pain control: Continue OxyContin 10 mg by mouth three times per day and Percocet 5-10 mg by mouth every 4 hours as needed for breakthrough pain 2. Gabapentin 300 mg by mouth three times per day This medication has been added by pain management for additional pain control 3. Oxybutynin 5 mg by mouth three times per day as needed for bladder spasms This medication has been added by urology to help with post-op stent placement discomfort 4. Lovenox injections have been INCREASED to [address] Felipe would like to repeat lab work in 5-7 days to monitor your Lovenox injection- a script has been given for this blood work Blood work needs completed on 11/08 or 11/09 4 hours AFTER Lovenox injection Please follow-up with your PCP within 5-7 days Follow-up with Dr. Robles as instructed by him Please follow-up/keep all of your subspecialty appointments Current Hospital Diet Patient's current hospital diet: Regular Diet Discharge Diet Recommended Diet: Regular Diet Procedures Procedures Performed: Cystoscopy, Right Retrograde Pyelography, Right Ureteral Stent Insertion Pending Studies Studies pending at discharge: no Laboratory Results Last 24 Hours Test 11/03/16 05:18 11/03/16 11:26 White Blood Count 19.64 K/uL Red Blood Count 2.62 M/uL Hemoglobin 8.6 g/dL Hematocrit 26.1 % Mean Corpuscular Volume 99.6 fL Mean Corpuscular Hemoglobin 32.8 pg Mean Corpuscular Hemoglobin Concent 33.0 g/dl RDW Standard Deviation 59.1 fL RDW Coefficient of Variation 16.3 % Platelet Count 182 K/uL Mean Platelet Volume 11.0 fL Sodium Level 140 mmol/L Potassium Level 3.5 mmol/L Chloride Level 101 mmol/L Carbon Dioxide Level 32 mmol/L Anion Gap 7.0 mmol/L Blood Urea Nitrogen 9 mg/dl Creatinine 0.75 mg/dl Est Creatinine Clear Calc Drug Dose 66.4 ml/min Estimated GFR () 96.3 Estimated GFR (Non- 83.1 BUN/Creatinine Ratio 12.5 Random Glucose 107 mg/dl Calcium Level 8.9 mg/dl Lipid Panel Test 08/29/16 09:45 Range/Units Triglycerides Level 160 H 0-150 mg/dl Cholesterol Level 179 0-200 mg/dl HDL Cholesterol 70 mg/dl Cholesterol/HDL Ratio 2.6 LDL Cholesterol, Calculated 77 mg/dl Medical Emergencies . Who to Call and When: Medical Emergencies: If at any time you feel your situation is an emergency, please call 911 immediately. . Non-Emergent Contact Non-Emergency issues call your: Primary Care Provider . . "Provider Documentation" section prepared by Lisa Mcdonough. . VTE Core Measure Inpt VTE Proph given/why not?: Enoxaparin (Lovenox)SQ
--- NOTE | 2016-11-03 12:22 | Discharge Summary ---
Discharge Summary Date of Service Nov 03, 2016. (Lisa Mcdonough, JENNY) Discharge Summary Admission Date: Oct 31, 2016 at 10:29 Discharge Date: Nov 03, 2016 Discharge Disposition: Home Principal Diagnosis: Intractable pain; metastatic carcinoma Problems/Secondary Diagnoses: Metastatic endometrial cancer- local spread in the right sided of the pelvis and now with lung nodule, adenopathy- w/ intractable pain Right hydronephrosis s/p stent placement on 11/02 h/o PE Dehydration Hypokalemia Hypomagnesemia Dyslipidemia GERD Depression Insomnia Procedures: Immediate Operative Summary Operative Date Nov 02, 2016. Pre-Operative Diagnosis Right hydronephrosis secondary to pelvic mass Post-Operative Diagnosis Right hydronephrosis secondary to pelvic mass Procedure(s) Performed Cystoscopy, Right Retrograde Pyelography, Right Ureteral Stent Insertion Surgeon Dr. Mesfin Kirkland Protection Analyst Surgeon(s) none Estimated Blood Loss 0 ML Findings Good stent position on fluoro, some contrast extravasation at the end of the case, ? source RPG vs. wire / stent placement, + hydronephrotic drip Specimens None per surgeon Drains 6 fr multilength stent on right Anesthesia MAC Complication(s) None Disposition Recovery Room / PACU <Electronically signed by Mesfin Kirkland MD> Signed: 11/02/16 1229 Signed: The status of this report is Signed * If report status is Draft, the document has not been finalized by the responsible provider ECHOCARDIOGRAM: Interpretation Summary * Name: DORCAS PARIS Study Date: 11/01/2016 06:49 AM BP: 107/60 mmHg * Patient Location: [facility] [place]\S\E404\S\1 HR: 76 * : 1950 (M/d/yyyy) Gender: Female Height: 65 in * Age: 65 yrs Ethnicity: [place] Weight: 133 lb * Ordering Physician: Deion Robles * Referring Physician: Kacie Felipe * Performed By: Mary Peraza RCS * * Reason For Study: CANDIDATE FOR ANTHRACYCLINE * BSA: 1.7 m2 * -- Conclusions -- * Left ventricular systolic function is normal. * Normal diastolic function * There is mild mitral regurgitation. * Compared to a study from 01/2016, the degree of MR is slightly worse, otherwise no change given the limited views obtained. Procedure Details * Limited views were obtained. Left Ventricle * The left ventricle is normal in size. * There is normal left ventricular wall thickness. * Left ventricular systolic function is normal. * Ejection Fraction = 55-60%. * Normal diastolic function Right Ventricle * The right ventricle is normal in size and function. Atria * The left atrial size is normal. * Right atrial size is normal. Mitral Valve * The mitral valve leaflets appear thickened, but open well. * There is mild mitral regurgitation. * The mitral regurgitant jet is posteriorly directed, which is consistent with anterior leaflet pathology. Tricuspid Valve * The tricuspid valve is not well visualized, but is grossly normal. * There is trace tricuspid regurgitation. Great Vessels * The aortic root is normal size. Pericardium/Pleural * There is no pericardial effusion. MMode 2D Measurements and Calculations IVSd 1.0 cm IVSs 1.0 cm LVIDd 3.6 cm LVIDs 2.9 cm LVPWd 1.1 cm LVPWs 1.0 cm IVS/LVPW 0.88 FS 19.3 % EDV(Teich) 54.8 ml ESV(Teich) 32.6 ml EF(Teich) 40.5 % EDV(cubed) 47.0 ml ESV(cubed) 24.7 ml EF(cubed) 47.4 % % IVS thick 1.7 % % LVPW thick -12.44 % LV mass(C)d 120.9 grams LV mass(C)dI 72.7 grams/m\S\2 LV mass(C)s 80.5 grams LV mass(C)sI 48.4 grams/m\S\2 SV(Teich) 22.2 ml SI(Teich) 13.4 ml/m\S\2 SV(cubed) 22.3 ml SI(cubed) 13.4 ml/m\S\2 Ao root diam 3.5 cm Ao root area 9.7 cm\S\2 LA dimension 2.7 cm LA/Ao 0.76 LVOT diam 2.0 cm LVOT area 3.0 cm\S\2 Doppler Measurements and Calculations MV E max deven 98.1 cm/sec MV A max deven 80.9 cm/sec MV E/A 1.2 MV P1/2t max deven 117.7 cm/sec MV P1/2t 65.0 msec MVA(P1/2t) 3.4 cm\S\2 MV dec slope 530.1 cm/sec\S\2 MV dec time 0.23 sec Created: Initialized: 11/01/16; 0827 <Electronically signed by Antoni Samaniego MD> Signed: 11/02/16 1621 Antoni Samaniego MD The status of this report is Signed. Draft = Not yet reviewed or approved by Information Scientist. Signed = Reviewed and approved by Information Scientist. CHEST ONE VIEW PORTABLE CLINICAL HISTORY: leukocytosis ENDOMETRIAL CARCINOMA COMPARISON STUDY: January 21, 2016 FINDINGS: The heart is normal in size. There is a right A-Port catheter with its tip projected over the superior vena cava. There is widening of the right paratracheal/azygous region. Adenopathy cannot be excluded. There is a nonspecific 19 mm right midlung zone nodule. There are equivocal right upper lobe airspace opacities projected over the central venous port. There is also equivocal nodule at the left lung base. CT scanning might be considered in follow-up. IMPRESSION: 1. Nonspecific 19 mm right midlung zone nodule, and equivocal 1 cm left lower lung zone nodule 2. Possible right paratracheal adenopathy 3. Equivocal right suprahilar airspace opacities 4. CT scanning should be considered for further evaluation. Electronically signed by: Philippe Jackson M.D. 10/31/2016 10:47 AM Dictated Date/Time: 10/31/2016 10:44 AM The status of this report is Signed. Draft = Not yet reviewed or approved by Radiologist. Signed = Reviewed and approved by Radiologist. Venous Doppler right leg RIGHT VENOUS DOPP LOWER EXT UNILAT CLINICAL HISTORY: swelling Right pain. Edema. TECHNIQUE: Venous Doppler COMPARISON STUDY: None FINDINGS: Normal study IMPRESSION: Normal study Electronically signed by: Martinez Nunn M.D. 10/31/2016 12:28 PM Dictated Date/Time: 10/31/2016 12:27 PM The status of this report is Signed. Draft = Not yet reviewed or approved by Radiologist. Signed = Reviewed and approved by Radiologist. CT OF THE CHEST WITHOUT IV CONTRAST CLINICAL HISTORY: Endometrial carcinoma. Abnormal chest x-ray. COMPARISON STUDY: CT scan dated 06/03/2016, chest x-ray dated 10/31/2016 CT DOSE: 188.41 mGy.cm TECHNIQUE: CT of the thorax was performed from the thoracic inlet to the lung bases. Images are reviewed in the axial, sagittal, and coronal planes. IV contrast was not administered for this examination. FINDINGS: Thyroid: Imaged portions of the thyroid gland are normal in appearance. Thoracic aorta: The thoracic aorta is normal in course and caliber, noting standard 3 vessel arch anatomy. Heart: The heart is normal in size and configuration, without pericardial effusion. Lungs and pleural spaces: There are no pleural effusions. There is no evidence of focal pulmonary consolidation. There are multiple new bilateral pulmonary nodules. The 2 largest nodules on the left are a 1 cm left upper lobe nodule visualized in image #110/296, as well as a 1 cm lingular nodule visualized in image #[id number]. On the right, the largest nodule is a lobulated right middle lobe 26 mm nodule demonstrating central cavitation. Mediastinum: There is new mediastinal lymphadenopathy. There is a pathologic 35mm right paratracheal lymph node. Lavonne: Mildly enlarged left hilar lymph nodes are suspected. Axilla: Clear. Upper abdomen: There is hepatic steatosis. Skeletal structures: There are no lytic or blastic osseous lesions. IMPRESSION: 1. Interval development of multiple bilateral pulmonary nodules, including a lobulated cavitating 26 mm right middle lobe pulmonary nodule 2. Interval development of pathologic mediastinal adenopathy including a 35mm right paratracheal lymph node Electronically signed by: Philippe Jackson M.D. 10/31/2016 3:30 PM Dictated Date/Time: 10/31/2016 3:21 PM The status of this report is Signed. Draft = Not yet reviewed or approved by Radiologist. Signed = Reviewed and approved by Radiologist. <AttendingPhy>Luis Vazquez D.O.</AttendingPhy> <FamilyPhy>Deion Robles D.O.</FamilyPhy> <PrimaryPhy>Zeke Huff M.D.</PrimaryPhy> <UnitNumber> [id number]</UnitNumber> <VisitNumber>[id number]</VisitNumber Consultations: Heme/oncology Urology Pain management (Lisa Mcdonough PA-C) Medication Reconciliation New Medications: Enoxaparin (Lovenox) 80 Mg/0.8 Ml Inj 80 MG SQ DAILY@1400 for 15 Days, #30 DOSE Gabapentin (Gabapentin) 300 Mg Cap 300 MG PO TID for 30 Days, #90 CAP Oxybutynin Chloride (Oxybutynin Chloride) 5 Mg Tab 5 MG PO TID PRN for Bladder spasm/stent irritation for 30 Days, #90 TAB Continued Medications: Albuterol Hfa (Ventolin Hfa) 200 Puffs/07406 Mcg Aers 2-4 PUFFS INH Q6H, #1 INHALER Alprazolam (Xanax) 0.5 Mg Tab 0.5 MG PO DAILY PRN for Anxiety Atorvastatin (Lipitor) 10 Mg Tab 10 MG PO QAM, TAB Biotin (Biotin) 2,500 Mcg Cap 2500 MCG PO QAM Calcium Citrate-Vitamin D (Calcium Citrate + D) 1 Tab Tab 2 TAB PO QAM Cyanocobalamin (Vitamin B12) 1,000 Mcg Tab 55548 MCG PO QAM Escitalopram (Lexapro) 10 Mg Tab 10 MG PO QAM, TAB Loperamide Hcl (Imodium) 2 Mg Cap 2 MG PO DAILY PRN for DIARRHEA Magnesium Oxide (Mag-Ox) 400 Mg Tab 400 MG PO DAILY, TAB Multiple Vitamin (Multivitamin) 1 Tab Tab 1 TAB PO QAM, TAB Omeprazole (Prilosec) 20 Mg Capcr 20 MG PO QAM, CAP Oxycodone HCl (Oxycontin) 10 Mg Tabcr 10 MG PO TID for 7 Days, #21 (This prescription has been renewed) Oxycodone Hcl (Oxycodone Hcl) 5 Mg Cap 5-10 MG PO Q4H PRN for Breakthrough Pain for 7 Days, #42 TABS (This prescription has been renewed) Probiotic Product (Probiotic & Acidophilus F) 1 Cap Cap 1 CAP PO QAM Prochlorperazine Maleate (Prochlorperazine Maleate) 10 Mg Tab 10 MG PO UD PRN for Nausea, #30 Psyllium (Metamucil) 0.52 Gm Cap 2 CAP PO DIRECTED 2 capsules in the Am around 10 AM and may take 2 capsules in the aternoon Temazepam (Restoril) 15 Mg Cap 15 MG PO HS PRN for Sleep Discontinued Medications: Enoxaparin (Lovenox) 60 Mg/0.6 Ml Inj 60 MG SQ DAILY Discharge Exam Review of Systems: Constitutional: No chills, No fatigue, No fever, No sweats, No weakness Respiratory: No cough, No hemoptysis, No shortness of breath Cardiovascular: No chest pain, No edema, No palpitations Abdomen: No constipation, No diarrhea, No nausea, No pain, No vomiting Musculoskeletal: + joint pain, + muscle pain, No calf pain, No swelling Genitourinary - Female: No dysuria Neurologic: No numbness/tingling, No weakness Psychiatric: + depression symptoms (upset about recent news of metastatic carcinoma ), No anxiety Hematologic / Lymphatic: No abnormal bleeding/bruising Integumentary: No new/changing skin lesions, No rash Physical Exam: General Appearance: no apparent distress Eyes: normal inspection, PERRL ENT: hearing grossly normal Neck: supple Respiratory/Chest: lungs clear, no respiratory distress, no accessory muscle use Cardiovascular: regular rate, rhythm Abdomen / GI: normal bowel sounds, non tender, soft Extremities: no calf tenderness, no pedal edema Neurologic/Psychiatric: alert, oriented x 3, + pertinent finding (Upset/ tearful ) Skin: normal color, warm/dry, no rash (Lisa Mcdonough, PA-C) Hospital Course 65 yo female with metastatic endometrial cancer, now with evidence of spreading to the lungs, here with intractable pain Metastatic endometrial cancer- local spread in the right sided of the pelvis and now with lung nodule, adenopathy- w/ intractable pain: - Continue OxyContin 10mg TID, Dilaudid 1mg IV q1 hr PRN for breakthrough, Gabapentin 300 mg TID, Percocet q4hrs, Fentanyl patch, K-pad for pain management -- Continue OxyContin, Percocet, and Gabapentin at discharge - Decadron 4mg daily to try to decrease swelling, help with pain - ECHO on 11/01- Left ventricular systolic function is normal. Normal diastolic function There is mild mitral regurgitation. - Heme/oncology following, appreciate recommendations -- Plan is to begin Chemotherapy on 11/07 - Pain management following, appreciate recommendations Right hydronephrosis s/p stent placement on 11/02: - UCx- skin john - Consult Urology, appreciate recommendations - Start Oxybutynin 5 mg TID PRN bladder spasms h/o PE: - Continue Lovenox increased to 80 units daily - Right leg US venous Doppler- negative for DVT - Follows with Dr. Saavedra -- Recommend LMWH Xa level 4 hours post Lovenox injection in 5-7 days to monitor medication Dehydration: Treated w/ IVF Hypokalemia- RESOLVED: - Replace in IVF - Follow PRP Hypomagnesemia: Continue Mag-Oxide supplement 400 mg daily Dyslipidemia: Continue Lipitor 10 mg daily GERD: Continue Protonix 40 mg daily Depression: Continue Lexapro 10 mg daily and Xanax 0.5 mg PRN Insomnia: Continue Restoril 15 mg HS GI Prophylaxis: Protonix, IV Zofran PRN, Colace and/or MiraLAX DVT prophylaxis: Lovenox Code Status: LEVEL I, FULL Dispo:Discharge to home Total Time Spent: Greater than 30 minutes This includes examination of the patient, discharge planning, medication reconciliation, and communication with other providers. (Lisa Mcdonough, PA-C) PA Physician Supervision Note: I interviewed and examined the patient. Discussed with Lisa Mcdonough PAC and agree with findings and plan as documented in the note. Any exceptions or clarifications are listed here: None 65F metastatic endometrial cancer, with ureteral obstruction from extrinsic compression, lung mets and intractable pain Metastatic endometrial cancer- w/ intractable pain: - Pain Management consult is assisting, OxyContin 10mg TID, , Gabapentin 300 mg TID, Percocet q4hrs, Fentanyl patch, Right hydronephrosis:Stent placement 11/02 will follow up with urology for stent removal -- IV Cipro was not tolerated by pt feels it makes joints hurt, will not add antibiotic unless culture driven h/o PE: Lovenox 80 mg sc daily Hypomagnesemia: Continue Mag-Oxide supplement 400 mg daily Depression: Lexapro 10 mg daily and Xanax 0.5 mg PRN DVT prophylaxis: Lovenox Code Status: LEVEL I, FULL car is regular, lungs clear, abd is soft and non tender Documented By: George Tan Total Time Spent: Greater than 30 minutes (George Tan M.D.) Discharge Instructions Please refer to the electronic Patient Visit Report (Discharge Instructions) for additional information. (Lisa Mcdonough ., PA-C) Follow-Up Please follow-up with your PCP within 5-7 days Please follow-up/keep all of your subspecialty appointments (Lisa Mcdonough ., PA-C) Additional Copies To Zeke Huff M.D.
[2016-11-03 13:16] VITALS: BP 177/84; PULSE 95; TEMP 36.6; O2SAT 91
[2016-11-03] MEDS ORDERED: ENOXAPARIN 80 MG/0.8 ML SYR SQ SCH (14:00)
[2016-11-04] MEDS ORDERED: FENTANYL PATCH REMOVE & WASTE SCH (09:00)
[2016-11-12] MEDS ORDERED: DRGTP25 TD (07:45)
[2016-11-12] MEDS ORDERED: AMOX875T PO (07:45)
[2016-11-12] MEDS ORDERED: RXC5 PO (09:19)
[2016-11-13] MEDS ORDERED: WARF5TAB7 (12:44)
== END 2016-11-03 13:50 | disposition home or self-care (01) | DRG 844 ==
LOC: ENRESERVTM → ENRESERVDT → C.EDB 08:30 → C.4E 10:29 → EDBEDREQ 11:01
PROVIDERS: ADMIT Internal Medicine; ATTEND Internal Medicine
PROC: 0T768DZ Dilation of Right Ureter with Intraluminal Device, Via Natural or Artificial Opening Endoscopic (ICD-10-PCS; principal; 2016-11-02 14:30)
PROC: BT16ZZZ Fluoroscopy of Right Ureter (ICD-10-PCS; principal; 2016-11-02 14:30)
DX: C79.89 Secondary malignant neoplasm of other specified sites (principal); N13.1 Hydronephrosis with ureteral stricture, not elsewhere classified; C54.1 Malignant neoplasm of endometrium; C78.01 Secondary malignant neoplasm of right lung; G89.3 Neoplasm related pain (acute) (chronic); E86.0 Dehydration; E87.6 Hypokalemia; E83.42 Hypomagnesemia; E78.5 Hyperlipidemia, unspecified; K21.9 Gastro-esophageal reflux disease without esophagitis; F32.9 Major depressive disorder, single episode, unspecified; G47.00 Insomnia, unspecified; Z86.711 Personal history of pulmonary embolism; Z90.710 Acquired absence of both cervix and uterus; Z92.21 Personal history of antineoplastic chemotherapy; Z92.3 Personal history of irradiation; Z79.01 Long term (current) use of anticoagulants; Z79.891 Long term (current) use of opiate analgesic; Z79.899 Other long term (current) drug therapy; Z80.0 Family history of malignant neoplasm of digestive organs; Z82.49 Family history of ischemic heart disease and other diseases of the circulatory system; Z83.6 Family history of other diseases of the respiratory system

== ENCOUNTER 2016-11-07 15:47 | Inpatient (IN) | payer BC, OTHER ==
[~2016-11-07] VITALS: Ht 167.6 cm; Wt 60.8 kg
[~2016-11-07 15:47] MED LIST changes: +ACET-1311 PO; +ANTI NAUSEA MED; +CALC-279 PO; +DPH/ PO; +DTR5 PO; +ENOX1INJ11 SQ; +ENOX60IN SQ; +LVNIS80 SQ; +METH1TAB81 PO; +NRN300 PO; +OXYC1CAP5 PO; +OXYSR10 PO; +PRED10TA PO; +VNTHFA/IN INH
--- NOTE | 2016-11-07 17:09 | History and Physical ---
History & Physical Date & Time of Service: Nov 07, 2016 at 16:48 Chief Complaint: Endometrial Carcinoma Primary Care Physician: Zeke Huff M.D. History of Present Illness Source: patient, spouse 65yo female with progressive, now stage 4 endometrial cancer who presents as a direct admission from the [facility] due to hyponatremia. She underwent a right sided ureteral stent placement last week by Dr. Mesfin Kirkland due to an obstructed right ureter from her endometrial cancer/pelvic lymphadenopathy. When she left the hospital on she was having significant pain in the right abdomen. There was also pain in the right hip and right leg on the anterior thigh. The right sided abdominal pain is markedly better than last week. During the weekend, however, she developed what she thought was "gout" in the entire right leg and right foot. She had some numbness in the right leg as well. She particularly had severe pain in the right great toe and right ankle. Colchicine was called in by her PCP's office over the weekend and this helped her right foot/ankle pain. She has had poor appetite since being released from the hospital last week. No fevers or chills. She has felt quite fatigued and reports she was mildly confused during the weekend. Today she was to start on a new chemotherapy regimen in [facility] and unfortunately pre-treatment blood work showed acute renal failure & hyponatremia thus prompting her admission to the hospital. Past Medical/Surgical History PMH: 1. h/o GERD and Morton's Esophagus 2. endometrial cancer - dx 2015 3. pulmonary emboli - dx 05/2016 4. hyperlipidemia 5. anemia 6. b12 deficiency PSH: 1. MELECIO/BSO due to endometrial cancer 2. additional pelvic surgery for removal of lymph nodes and what sounds like tumor debulking? 3. c/s x 2 4. knee surgery (menisci) 5. right ureteral stent placement - Dr. 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[employer] ) Multi-Drug Resistant Organisms History of MDRO: No Allergies Coded Allergies: Cat Dander (Verified Allergy, Mild, Sneezing, 10/31/16) Home Medications Scheduled Albuterol Hfa (Ventolin Hfa), 2-4 PUFFS INH Q6H Atorvastatin (Lipitor), 10 MG PO QAM Biotin (Biotin), 2,500 MCG PO QAM Calcium Citrate-Vitamin D (Calcium Citrate + D), 2 TAB PO QAM Cyanocobalamin (Vitamin B12), 10,000 MCG PO QAM Enoxaparin (Lovenox), 80 MG SQ DAILY@1400 Escitalopram (Lexapro), 10 MG PO QAM Gabapentin (Gabapentin), 300 MG PO TID Magnesium Oxide (Mag-Ox), 400 MG PO DAILY Multiple Vitamin (Multivitamin), 1 TAB PO QAM Omeprazole (Prilosec), 20 MG PO QAM Oxycodone HCl (Oxycontin), 10 MG PO TID Probiotic Product (Probiotic & Acidophilus F), 1 CAP PO QAM Psyllium (Metamucil), 2 CAP PO DIRECTED Scheduled PRN Alprazolam (Xanax), 0.5 MG PO DAILY PRN for Anxiety Loperamide Hcl (Imodium), 2 MG PO DAILY PRN for DIARRHEA Oxybutynin Chloride (Oxybutynin Chloride), 5 MG PO TID PRN for Bladder spasm/ stent irritation Oxycodone Hcl (Oxycodone Hcl), 5-10 MG PO Q4H PRN for Breakthrough Pain Prochlorperazine Maleate (Prochlorperazine Maleate), 10 MG PO UD PRN for Nausea Temazepam (Restoril), 15 MG PO HS PRN for Sleep Review of Systems Constitutional: + fatigue (since last week), + weight loss (10 pounds over several months), No chills, No fever Eyes: No worsening of vision ENT: + problem reported (dry mouth and thirsty), No nasal symptoms, No sore throat, No trouble swallowing Respiratory: + dyspnea on exertion, No cough, No dyspnea at rest, No shortness of breath, No sputum, No wheezing Cardiovascular: No PND, No chest pain, No edema, No orthopnea Abdomen: + pain, No GI bleeding, No diarrhea, No vomiting Genitourinary - Female: + dysuria, + hematuria, No urinary frequency Neurologic: + numbness/tingling (right leg near the hip) Psychiatric: + anxiety Endocrine: No excessive urination Hematologic / Lymphatic: No abnormal bleeding/bruising Integumentary: No rash Physical Exam General Appearance: no apparent distress, + pertinent finding (nontoxic; no confusion) Head: normocephalic, atraumatic Eyes: PERRL ENT: hearing grossly normal, pharynx normal Neck: supple, no adenopathy, thyroid normal, no JVD Respiratory/Chest: lungs clear, no respiratory distress, no accessory muscle use Cardiovascular: regular rate, rhythm, no gallop, no murmur, normal peripheral pulses Abdomen/GI: normal bowel sounds, soft, no organomegaly, no pulsatile mass, + tenderness (right side of abdomen - very mild ) Back: normal inspection, no CVA tenderness Extremities/Musculoskelatal: + pedal edema (right leg - about 1+) Neurologic/Psych: no motor/sensory deficits, alert, normal reflexes, oriented x 3 Skin: no rash Lymphatic: no adenopathy (cervical) right great toe, first MTP joint - synovitis with warmth & swelling c/w gout. right ankle with warmth/swelling/synovitis. both joints tender to palpation. No other small or large joint (upper or lower extremities) with synovitis. Diagnostics Diagnostic Radiology renal u/s - IMPRESSION: 1. Moderate right hydronephrosis, either unchanged or slightly improved since CT of October 22, 2016. 2. Interval development of mild left collecting system dilatation. 3. Distal aspect of the right ureteral stent identified within the bladder. Proximal aspect not well-visualized due to sonographic technique. cxr - no pneumonia, pulmonary mets seen. Impression Assessment and Plan Very pleasant 65yo female with progressive, stage 4 endometrial cancer and recent right-sided ureteral stent placement due to hydronephrosis from vaginal cuff mass presenting with: 1. hyponatremia - checked urine osm, urine Na, and serum osm. Studies c/w prerenal state and salt depletion likely due to poor oral intake over the last 5 days. Will hydrate with NS and recheck her sodium level in 6 hours and then again in the morning. 2. concern for UTI - in light of her leukocytosis, anorexia, and recent stent placement I am concerned she has a UTI. Will send urine for culture and start cefepime. This would be considered a complicated UTI due to recent urinary tract instrumentation. 3. metabolic encephalopathy - the pt's reports intermittent confusion over the last few days. Suspect the bulk of the confusion was from hyponatremia. UTI could have contributed. Toxic effects from gabapentin in the setting of acute renal failure also possible. She is already improved. 4. acute renal failure - FeNa is 0.1. She has granular casts on u/a. Suspect pre-renal state from dehydration. Cannot rule out ATN but less likely. Hydrate and repeat BMP in 6 hours and then again in AM. She does have an element of ongoing obstruction based on imaging but suspect that the bulk of her acute renal failure is from prerenal causes. 5. hypokalemia - replace, repeat K with next blood draw. 6. h/o PE - continue therapeutic lovenox. May need to adjust this dose given her current renal function. Consider factor Xa level. 7. GERD/Morton's - continue PPI. Doubt PPI is contributing to renal function issues. 8. anemia - b12 level was low in the past; recheck b12 with folate. Check ferritin level. Anemia is chronic, and recent baseline levels have been 8-9. 9. gout - podagra on right foot, and right ankle. Uric acid level and sed rate are high c/w gout. NSAIDs contraindicated given the ARF. Prednisone 30mg po x 1 now, then 20mg in AM starting tomorrow. 10. paresthesias right leg - due to L-spine issue? In light of her ARF will hold gabapentin tonight and resume tomorrow but lower the dose to BID dosing until her renal function improves. 11. abnormal LFTs - seen earlier today at the cancer center. Hold lipitor. Recheck LFTs in 48 hours. code status - full code, level 1; however - patient would not want prolonged intubation/mech ventilation, etc Level of Care Med/Surg Advanced Directives Existing Advance Directive: Yes Existing Living Will: Yes Existing Power of Denitrator Operator: Yes Resuscitation Status FULL RESUSCITATION VTE Prophylaxis VTE Risk Assessment Done? Y/N: Yes Risk Level: High Given or contraindicated: Enoxaparin (Lovenox)SQ Note total time about 75 minutes Additional Copies To Mesfin Kirkland MD, Urology; Pro,Zeke Ochoa M.D. Deion Robles D.O.
[2016-11-07 17:30] VITALS: BP 108/69; PULSE 82; TEMP 36.5; O2SAT 92
[2016-11-07] MEDS ORDERED: ALUMINUM/MAGNESIUM/SIMETH (MAALOX MAX) 30 ML UDC PO PRN (17:30)
[2016-11-07] MEDS ORDERED: MAGNESIUM HYDROXIDE SUSP 30 ML UDC PO PRN (17:30)
[2016-11-07] MEDS ORDERED: ACETAMINOPHEN 325 MG TAB PO PRN (17:30)
[2016-11-07] MEDS ORDERED: ALBUTEROL HFA 8 GM INHALER INH PRN (17:30)
[2016-11-07 18:14] LABS: MEAN CELL VOLUME 94.5 fL (80-100); MEAN CORPUSCULAR HEMOGLOBIN 31.9 pg (25-34); MEAN CORPUSCULAR HGB CONC 33.8 g/dl (32-36); MEAN PLATELET VOLUME 10.3 fL (7.4-10.4); PLATELET COUNT 161 K/uL (130-400); RED BLOOD COUNT 2.54 M/uL (4.2-5.4)
[2016-11-07] MEDS ORDERED: LOPERAMIDE HCL 2 MG CAP PO PRN (18:15)
[2016-11-07] MEDS ORDERED: PATIENT'S HEIGHT AND/OR WEIGHT NEEDED SCH (18:15)
[2016-11-07 18:32] LABS: BLOOD UREA NITROGEN 27 mg/dl (7-18); BUN/CREATININE RATIO 12.5 (10-20); CARBON DIOXIDE 26 mmol/L (21-32); CHLORIDE 87 mmol/L (98-107); GLUCOSE 142 mg/dl (70-99); POTASSIUM 3.3 mmol/L (3.5-5.1); SODIUM 124 mmol/L (136-145); URIC ACID 8.1 mg/dl (2.6-7.2)
[2016-11-07 18:33] LABS: INR 1.2 (0.9-1.1); PROTHROMBIN TIME (PATIENT) 12.7 SECONDS (9.0-12.0)
[2016-11-07 18:37] LABS: FERRITIN 1594.3 ng/ml (8.0-388.0)
[2016-11-07 19:04] LABS: BASO ABS # 0.01 K/uL (0-0.2); COMPLETE YES; DOHLE BODIES 1+; EOS % 0.2 %; IG% 0.6 %; LYMPH % 1.1 %; LYMPH ABS # 0.24 K/uL (1.2-3.4); MONO % 2.5 %; NEUT % 95.6 %
[2016-11-07 19:11] LABS: URINE APPEARANCE CLOUDY (CLEAR); URINE BILIRUBIN NEG (NEG); URINE COLOR YELLOW; URINE EPITHELIAL CELL AUTO >30 /lpf (0-5); URINE NITRITE NEG (NEG); URINE SPECIFIC GRAVITY 1.012 (1.000-1.030); UROBILINOGEN NEG (NEG)
[2016-11-07 19:15] LABS: MANUAL MICROSCOPIC REQUIRED? NO; REVIEW REQ? YES
--- NOTE | 2016-11-07 19:24 | DIAGNOSTIC IMAGING REPORT ---
CHEST 2 VIEWS ROUTINE CLINICAL HISTORY: Endometrial carcinoma. Shortness of breath. Evaluate for pneumonia. COMPARISON STUDY: Chest radiograph and chest CT October 31, 2016. FINDINGS: A right internal jugular Loosib-b-Pkst is in place. There is no pneumothorax. A small right pleural effusion has developed. Several lung nodules are again noted. There is no evidence for pulmonary edema. There is no consolidation to suggest pneumonia. IMPRESSION: 1. Interval development of a small right pleural effusion. 2. No consolidation to suggest pneumonia. 3. Redemonstration of pulmonary nodules which are suggestive of metastatic disease. 4. Right paratracheal widening due to pathologic lymphadenopathy shown on prior CT. Electronically signed by: Cristian Osborn M.D. 11/07/2016 7:22 PM Dictated Date/Time: 11/07/2016 7:20 PM
--- NOTE | 2016-11-07 19:27 | DIAGNOSTIC IMAGING REPORT ---
RENAL ULTRASOUND CLINICAL HISTORY: Acute renal failure. Recent stent placement. COMPARISON STUDY: CT of the abdomen and pelvis October 22, 2016 and 4 excellence leader images from retrograde exam November 02, 2016. TECHNIQUE: Sonography of the kidneys and the urinary bladder was performed. FINDINGS: The right kidney measures 11.1 x 5 x 6.2 cm and the left measures 11.3 x 5.5 x 7.2 cm. The distal aspect of the right ureteral stent within the bladder is visualized. The proximal aspect of the stent is not visualized due to sonographic technique. Moderate right hydronephrosis is noted. This is either stable or slightly improved since prior CT of October 22, 2016. There is mild left collecting system dilatation which has increased. Ureteral jets were not identified. IMPRESSION: 1. Moderate right hydronephrosis, either unchanged or slightly improved since CT of October 22, 2016. 2. Interval development of mild left collecting system dilatation. 3. Distal aspect of the right ureteral stent identified within the bladder. Proximal aspect not well-visualized due to sonographic technique. Electronically signed by: Cristian Osborn M.D. 11/07/2016 7:25 PM Dictated Date/Time: 11/07/2016 7:22 PM
[2016-11-07 19:28] LABS: URINE PATH CASTS 0-3 GRANULAR CASTS /lpf (0)
[2016-11-07] MEDS ORDERED: POTASSIUM CHLORIDE 10 MEQ TABCR PO STA (19:31)
[2016-11-07 19:38] VITALS: BP 106/63; PULSE 87; TEMP 36.1; O2SAT 97
[2016-11-07] MEDS: NSS + 20MEQ KCL 1000ML 1,000 ML IV SCH (19:56)
[2016-11-07 20:56] VITALS: BMI 23.8
[2016-11-07] MEDS: CEFEPIME IV 1,000 MG in DEXTROSE 5% 100ML 100 ML IV SCH (21:25)
[2016-11-07] MEDS: DOCUSATE SODIUM 100 MG CAP PO SCH (21:25)
--- NOTE | 2016-11-07 21:35 | DIAGNOSTIC IMAGING REPORT ---
CT OF THE ABDOMEN AND PELVIS WITHOUT CONTRAST CLINICAL HISTORY: Endometrial carcinoma. Recent right-sided ureteral stent placement. COMPARISON STUDY: CT of the abdomen and pelvis October 22, 2016 and renal ultrasound performed earlier today. TECHNIQUE: Axial images of the abdomen and pelvis were obtained without IV contrast. Images were reviewed in the axial, sagittal, and coronal planes. FINDINGS: Visualized portions of the lower chest again demonstrate an 8 mm lingular nodule suggestive of metastatic disease. A small right pleural effusion is noted. There is fatty infiltration of the liver. Unenhanced images of the spleen, adrenal glands and pancreas are unremarkable. Evaluation of the abdomen and pelvis is suboptimal on this unenhanced exam. There has been interval placement of a right-sided ureteral stent. The proximal aspect the stent is within the right renal pelvis and the distal aspect is within the right posterior aspect of the bladder. Moderate right hydroureteronephrosis persists although has mildly improved since exam of October. There has been interval of mild left hydroureteronephrosis of uncertain etiology. Vaginal cuff mass, measuring approximately 5 x 3.5 cm is better depicted on prior contrast enhanced CT. Multiple necrotic right pelvic sidewall nodes are again noted as well as a necrotic aortocaval lymph node. These are similar to prior exam. There is no evidence for a bowel obstruction. No suspicious osseous lesions are present. Moderate bladder wall thickening is noted. There is adjacent infiltration. IMPRESSION: 1. Interval placement of a right ureteral stent. Proximal aspect of the stent within the right renal pelvis and distal aspect within the right posterior aspect of the bladder. Moderate right hydroureteronephrosis, mildly improved since exam of October 22, 2016. Interval development of mild left hydroureteronephrosis. 2. Redemonstration of the vaginal cuff mass as well as abdominal and pelvic lymphadenopathy suggestive of jose spread of disease. 3. Small right pleural effusion. 4. Persistent moderate bladder wall thickening. Electronically signed by: Cristian Osborn M.D. 11/07/2016 9:33 PM Dictated Date/Time: 11/07/2016 9:24 PM
--- NOTE | 2016-11-07 21:52 | Progress Note ---
Progress Note Date of Service Nov 07, 2016. Progress Note Spoke with Dr. Kirkland from urology. Reviewed renal u/s results with him. He requested CT abd/pelvis and he will formally consult in the AM. Alex Vallejo MD
[2016-11-08] VITALS (10 sets, daily range): BP systolic 96–127; BP diastolic 56–76; PULSE 75–100; TEMP 36.2–36.5; O2SAT 92–97; BMI 22.8
[2016-11-08 03:18] LABS: BUN/CREATININE RATIO 14.9 (10-20); CALCIUM 7.7 mg/dl (8.5-10.1); CREATININE 2.1 mg/dl (0.60-1.20); POTASSIUM 3.9 mmol/L (3.5-5.1)
[2016-11-08] MEDS: NSS + 20MEQ KCL 1000ML 1,000 ML IV SCH ×3 (06:05→23:41)
--- NOTE | 2016-11-08 07:56 | Urology Consultation ---
History General Date of Service: Nov 08, 2016. Chief Complaint: renal failure Primary Care Physician: Zeke Huff M.D. Pt seen a urologist before?: Yes (Dr. Kirkland) If yes, why?: right hydronephrosis History of Present Illness 65 yo female with metastatic endometrial carcinoma s/p right ureteral stent placement for right hydro secondary to mass effect on 11-02. Now admitted with ARF and hyponatremia. Cr on admission was 2.2. Now stable at 2.1 this morning. Previous baseline around 1.1 or less. She reports constipation this morning, but otherwise feels improved. Denies flank pain, dysuria, or hematuria. CT scan showing some slight improvement in her right hydro and mild left hydro on admission. Imaging Imaging: CT Laboratory Last 24 Hours Test 11/07/16 18:02 11/07/16 18:05 11/08/16 02:33 11/08/16 07:30 White Blood Count 22.30 K/uL Red Blood Count 2.54 M/uL Hemoglobin 8.1 g/dL Hematocrit 24.0 % Mean Corpuscular Volume 94.5 fL Mean Corpuscular Hemoglobin 31.9 pg Mean Corpuscular Hemoglobin Concent 33.8 g/dl Platelet Count 161 K/uL Mean Platelet Volume 10.3 fL Neutrophils (%) (Auto) 95.6 % Lymphocytes (%) (Auto) 1.1 % Monocytes (%) (Auto) 2.5 % Eosinophils (%) (Auto) 0.2 % Basophils (%) (Auto) 0.0 % Neutrophils # (Auto) 21.31 K/uL Lymphocytes # (Auto) 0.24 K/uL Monocytes # (Auto) 0.55 K/uL Eosinophils # (Auto) 0.05 K/uL Basophils # (Auto) 0.01 K/uL RDW Standard Deviation 52.6 fL RDW Coefficient of Variation 15.2 % Immature Granulocyte % (Auto) 0.6 % Immature Granulocyte # (Auto) 0.14 K/uL Dohle Bodies 1+ Erythrocyte Sedimentation Rate 61 mm/hr Prothrombin Time 12.7 SECONDS Prothromb Time International Ratio 1.2 Sodium Level 124 mmol/L 126 mmol/L Potassium Level 3.3 mmol/L 3.9 mmol/L Chloride Level 87 mmol/L 90 mmol/L Carbon Dioxide Level 26 mmol/L 28 mmol/L Anion Gap 11.0 mmol/L 8.0 mmol/L Blood Urea Nitrogen 27 mg/dl 31 mg/dl Creatinine 2.20 mg/dl 2.10 mg/dl Estimated GFR () 26.2 27.7 Estimated GFR (Non- 22.6 23.9 BUN/Creatinine Ratio 12.5 14.9 Random Glucose 142 mg/dl 142 mg/dl Osmolality 262 mOsm/kg Uric Acid 8.1 mg/dl Calcium Level 8.0 mg/dl 7.7 mg/dl Ferritin 1594.3 ng/ml Vitamin B12 Level 1238 pg/mL Folate 13.19 ng/mL Urine Color YELLOW Urine Appearance CLOUDY Urine pH 5.0 Urine Specific [place] 1.012 Urine Protein TRACE Urine Glucose (UA) NEG Urine Ketones NEG Urine Occult Blood 2+ Urine Nitrite NEG Urine Bilirubin NEG Urine Urobilinogen NEG Urine Leukocyte Esterase MODERATE Urine WBC (Auto) >30 /hpf Urine RBC (Auto) 5-10 /hpf Urine Hyaline Casts (Auto) 1-5 /lpf Urine Epithelial Cells (Auto) >30 /lpf Urine Bacteria (Auto) 2+ Urine Renal Epithelial Cells /lpf Urine Pathogenic Casts 0-3 GRANULAR CASTS /lpf Urine Osmolality 230 mOms/kg Urine Random Creatinine 120.0 mg/dl Urine Random Sodium 6 mEq/L Est Creatinine Clear Calc Drug Dose 23.7 ml/min Transferrin % Saturation % Problem List Medical Problems: (1) Cervical radiculopathy Status: Acute (2) Dyspnea on exertion Status: Acute (3) Hydronephrosis Status: Acute (4) Precordial chest pain Status: Acute (5) Recurrent carcinoma of endometrium Status: Acute (6) Right sided abdominal pain Status: Acute (7) Ureteral obstruction, right Status: Acute Past History arthritis, cancer (metastatic endometrial carcinoma), GERD, high cholesterol, pneumonia, pulmonary embolism, other (Morton's esophagitis) Past Surgical History: , EGD, hysterectomy, orthopedic surgery (knee surgery), ureteral stent Family History Cancer Gallbladder disease Heart disease Hypertension Lung disease Social History Hx Tobacco Use In Past Year?: No Smoking: non-smoker Alcohol: no current use Marital status: (2 sons) Housing status: lives with family (in [place]) 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[employer] ) History of MDRO No Allergies Coded Allergies: Cat Dander (Verified Allergy, Mild, Sneezing, 10/31/16) Medications Home Medications: Home Meds and Scripts Medications Dose Route/Sig Max Daily Dose Days Date Category Dose Instructions Oxybutynin Chloride 5 Mg Tab 5 Mg PO TID PRN 30 11/03/16 Rx Gabapentin 300 Mg Cap 300 Mg PO TID 30 11/03/16 Rx Lovenox (Enoxaparin Sodium) 80 Mg/0.8 Ml Inj 80 Mg SQ DAILY@1400 15 11/03/16 Rx Oxycodone Hcl 5 Mg Cap 5-10 Mg PO Q4H PRN 7 11/03/16 Rx Oxycontin (Oxycodone HCl) 10 Mg Tabcr 10 Mg PO TID 7 11/03/16 Rx Ventolin Hfa (Albuterol) 200 Puffs/68644 Mcg Aers 2-4 Puffs INH Q6H 10/31/16 Reported Calcium Citrate + D (Calcium Citrate-Vitamin D) 1 Tab Tab 2 Tab PO QAM 10/31/16 Reported Prochlorperazine Maleate 10 Mg Tab 10 Mg PO UD PRN 10/22/16 Reported Metamucil (Psyllium) 0.52 Gm Cap 2 Cap PO DIRECTED 08/21/16 Reported 2 capsules in the Am around 10 AM and may take 2 capsules in the aternoon Mag-Ox (Magnesium Oxide) 400 Mg Tab 400 Mg PO DAILY 05/24/16 Reported Imodium (Loperamide HCl) 2 Mg Cap 2 Mg PO DAILY PRN 11/05/14 Reported Probiotic & Acidophilus F (Probiotic Product) 1 Cap Cap 1 Cap PO QAM 11/05/14 Reported Vitamin B12 (Cyanocobalamin) 1,000 Mcg Tab 10,000 Mcg PO QAM 11/05/14 Reported Biotin 2,500 Mcg Cap 2,500 Mcg PO QAM 11/05/14 Reported Restoril (Temazepam) 15 Mg Cap 15 Mg PO HS PRN 10/25/12 Reported Prilosec (Omeprazole) 20 Mg Capcr 20 Mg PO QAM 10/25/12 Reported Multivitamin (Multiple Vitamin) 1 Tab Tab 1 Tab PO QAM 10/25/12 Reported Lexapro (Escitalopram Oxalate) 10 Mg Tab 10 Mg PO QAM 10/25/12 Reported Lipitor (Atorvastatin Calcium) 10 Mg Tab 10 Mg PO QAM 10/25/12 Reported Xanax (Alprazolam) 0.5 Mg Tab 0.5 Mg PO DAILY PRN 10/25/12 Reported Inpatient Medications: Current Inpatient Medications Medications (Trade) Dose Ordered Sig/Rohan Route Start Time Stop Time Status Last Admin Dose Admin Acetaminophen (Tylenol Tab) 650 mg Q4H PRN PO 11/07/16 17:30 12/07/16 17:29 Al Hydrox/Mg Hydrox/Simethicone (Maalox Max Susp) 15 ml Q4H PRN PO 11/07/16 17:30 12/07/16 17:29 Magnesium Hydroxide (Milk Of Magnesia Susp) 30 ml Q6H PRN PO 11/07/16 17:30 12/07/16 17:29 Ondansetron HCl (Zofran Inj) 4 mg Q6H PRN IV 11/07/16 17:30 12/07/16 17:29 Albuterol (Ventolin Hfa Inhaler) 2 puffs Q6H PRN INH 11/07/16 17:30 12/07/16 17:29 Alprazolam (Xanax Tab) 0.5 mg Q6H PRN PO 11/07/16 17:30 12/07/16 17:29 Enoxaparin Sodium (Lovenox Inj) 80 mg DAILY@1400 SQ 11/08/16 14:00 12/08/16 13:59 Escitalopram Oxalate (Lexapro Tab) 10 mg QAM PO 11/08/16 08:00 12/08/16 07:59 Gabapentin (Neurontin Cap) 300 mg BID PO 11/08/16 08:00 12/08/16 07:59 Loperamide HCl (Imodium Cap) 2 mg DAILY PRN PO 11/07/16 18:15 12/07/16 18:14 Multivitamins (Multivitamin Tab) 1 tab QAM PO 11/08/16 08:00 12/08/16 07:59 Oxybutynin Chloride (Ditropan Tab) 5 mg TID PRN PO 11/07/16 17:30 12/07/16 17:29 Temazepam (Restoril Cap) 15 mg HS PRN PO 11/07/16 17:30 12/07/16 17:29 Pantoprazole Sodium (Protonix Tab) 40 mg QAM PO 11/08/16 08:00 12/08/16 07:59 Oxycodone HCl 5 mg 5 mg Q4H PRN PO 11/07/16 17:30 11/21/16 17:29 Potassium Chloride/Sodium Chloride (Nss + 20meq KCl 1000ml) 1,000 ml @ 100 mls/hr Q10H IV 11/07/16 20:00 12/07/16 19:59 11/08/16 06:05 100 MLS/HR Prednisone (PredniSONE TAB) 20 mg QAM PO 11/08/16 08:00 12/08/16 07:59 Docusate Sodium (coLACE CAP) 100 mg BID PO 11/07/16 20:45 12/07/16 20:44 11/07/16 21:25 100 MG Polyethylene 17 gm 17 gm DAILY PO 11/08/16 08:00 12/08/16 07:59 Cefepime HCl/ Dextrose (Maxipime IV/D5 100ml) 111.3 ml @ 200 mls/hr Q12 IV 11/07/16 21:00 11/17/16 20:59 11/07/16 21:25 200 MLS/HR Review of Systems Review of Systems Constitutional: No chills, No fever Eyes: No double vision Neurological: No dizzy Endocrine: No excessive thirst Gastrointestinal: + constipation, No abdominal pain, No nausea, No vomiting Cardiovascular: No chest pain Respiratory: No shortness of breath Skin: No rash Musculoskeletal: No back pain Female : No blood in urine, No painful urination Physical Exam Vital Signs: Vital Signs Past 12 Hours Date Time Temp Pulse Resp B/P Pulse Ox O2 Delivery O2 Flow Rate FiO2 11/08/16 07:19 36.2 80 18 105/64 97 Room Air 11/08/16 04:14 36.2 75 18 96/62 93 Room Air 11/08/16 00:56 36.2 75 18 97/61 92 Room Air 11/08/16 00:00 92 Room Air 11/07/16 20:56 Room Air Physical Exam: General Appearance: no apparent distress Eyes: bilateral eyes normal inspection ENT: hearing grossly normal Neck: no JVD Respiratory/Chest: no respiratory distress, no accessory muscle use Cardiovascular: no JVD Extremities: normal inspection Neurologic/Psychiatric: alert, normal mood/affect, oriented x 3 Skin: normal color Assessment & Plan Assessment & Plan A/P: Bilateral hydronephrosis, ARF AFVSS. CT reviewed with Dr. Kirkland this morning. Slight improvement in her right hydro noted since stent placement. Mild left hydro noted as well. Would avoid stent placement for now. If right hydro or renal failure were to worsen, would need to consider transferring her for PCN placement on the right. Would also consider PCN vs stent placement on the left. Recommend checking bladder scans qshift to ensure her bladder is emptying appropriately, and incomplete emptying is not contributing to her ARF. If >250ml , would place johnson catheter. Thanks for the consult. Will continue to follow along with primary service at this time.
[2016-11-08] MEDS: POLYETHYLENE (MIRALAX) 17 GM PACK PO SCH (08:13)
[2016-11-08] MEDS: PANTOprazole SOD 40 MG TAB PO SCH (08:14)
[2016-11-08] MEDS: DOCUSATE SODIUM 100 MG CAP PO SCH ×2 (08:14→20:22)
[2016-11-08] MEDS: MULTIVITAMIN TAB PO SCH (08:14)
[2016-11-08] MEDS: GABAPENTIN 300 MG CAP PO SCH ×2 (08:15→20:23)
[2016-11-08] MEDS: ESCITALOPRAM OXALATE 10 MG TAB PO SCH (08:15)
[2016-11-08] MEDS: CEFEPIME IV 1,000 MG in DEXTROSE 5% 100ML 100 ML IV SCH ×2 (08:21→20:23)
[2016-11-08 08:22] LABS: HEMATOCRIT 25.4 % (37-47); MEAN CELL VOLUME 94.4 fL (80-100); MEAN CORPUSCULAR HGB CONC 33.9 g/dl (32-36); MEAN PLATELET VOLUME 10.4 fL (7.4-10.4); PLATELET COUNT 181 K/uL (130-400); RED BLOOD COUNT 2.69 M/uL (4.2-5.4); WHITE BLOOD COUNT 21.44 K/uL (4.8-10.8)
[2016-11-08 08:51] LABS: BUN/CREATININE RATIO 14.3 (10-20); CREATININE 2.2 mg/dl (0.60-1.20); POTASSIUM 3.7 mmol/L (3.5-5.1)
[2016-11-08 08:52] LABS: TOTAL IRON BINDING CAPACITY 142 mcg/dl (250-450)
[2016-11-08 08:54] LABS: CALCIUM 8.6 mg/dl (8.5-10.1)
[2016-11-08 08:57] LABS: BASO ABS # 0.01 K/uL (0-0.2); COMPLETE YES; EOS % 0.1 %; IG% 0.7 %; LYMPH % 2.4 %; LYMPH ABS # 0.51 K/uL (1.2-3.4); MONO % 2.7 %; NEUT % 94.1 %
--- NOTE | 2016-11-08 09:43 | Progress Note ---
Subjective Date of Service: Nov 08, 2016. Subjective Pt evaluation today including: conversation w/ patient, conversation w/ family ( at bedside), physical exam, chart review, lab review, review of studies , review of inpatient medication list Discussed patient care with patient and . She feels somewhat better, less tired than when she came in. No fevers prior to admission or overnight. Right port has been in since mid-January last year without any redness or drainage. She reports very poor intake in the past week or so, but drinking better now. She also reports her baseline BP usually runs in the 130s systolic but that her BPs have been running low, as low as 80s systolic. She does have baseline voiding issues which she takes oxybutynin prn. She recently had right stent placed.She still notes intermittent hematuria but said she expected it after the stent. Otherwise, no dysuria, no increased urinary frequency and no changes in amount of urine. No NSAID use or OTC meds. Not on any antihypertensives at home. She was also recently started on colchicine for right hallux gout which did improve the pain. No excess amount of water intake. Problem List Medical Problems: (1) Cervical radiculopathy Status: Acute (2) Dyspnea on exertion Status: Acute (3) Hydronephrosis Status: Acute (4) Precordial chest pain Status: Acute (5) Recurrent carcinoma of endometrium Status: Acute (6) Right sided abdominal pain Status: Acute (7) Ureteral obstruction, right Status: Acute Review of Systems All Other Systems: Reviewed and Negative Medications Acetaminophen (Tylenol Tab) 650 mg Q4H PRN PO; Start 11/07/16 at 17:30; Stop 12/07/16 at 17:29 Al Hydrox/Mg Hydrox/Simethicone (Maalox Max Susp) 15 ml Q4H PRN PO; Start 11/07 at 17:30; Stop 12/07/16 at 17:29 Albuterol (Ventolin Hfa Inhaler) 2 puffs Q6H PRN INH; Start 11/07/16 at 17:30; Stop 12/07/16 at 17:29 Alprazolam (Xanax Tab) 0.5 mg Q6H PRN PO; Start 11/07/16 at 17:30; Stop at 17:29 Cefepime HCl/ Dextrose (Maxipime IV/D5 100ml) 111.3 ml @ 200 mls/hr Q12 IV Last administered on 11/08/16 08:21; Admin Dose 200 MLS/HR; Start 11/07/16 at 21:00; Stop 11/17/16 at 20:59 Docusate Sodium (coLACE CAP) 100 mg BID PO Last administered on 11/08/16 08:14 ; Admin Dose 100 MG; Start 11/07/16 at 20:45; Stop 12/07/16 at 20:44 Enoxaparin Sodium (Lovenox Inj) 80 mg DAILY@1400 SQ; Start 11/08/16 at 14:00; Stop 12/08/16 at 13:59 Escitalopram Oxalate (Lexapro Tab) 10 mg QAM PO Last administered on 11/08/16 08:15; Admin Dose 10 MG; Start 11/08/16 at 08:00; Stop 12/08/16 at 07:59 Gabapentin (Neurontin Cap) 300 mg BID PO Last administered on 11/08/16 08:15; Admin Dose 300 MG; Start 11/08/16 at 08:00; Stop 12/08/16 at 07:59 Loperamide HCl (Imodium Cap) 2 mg DAILY PRN PO; Start 11/07/16 at 18:15; Stop 12/07/16 at 18:14 Magnesium Hydroxide (Milk Of Magnesia Susp) 30 ml Q6H PRN PO; Start 11/07/16 at 17:30; Stop 12/07/16 at 17:29 Multivitamins (Multivitamin Tab) 1 tab QAM PO Last administered on 11/08/16 08: 14; Admin Dose 1 TAB; Start 11/08/16 at 08:00; Stop 12/08/16 at 07:59 Ondansetron HCl (Zofran Inj) 4 mg Q6H PRN IV; Start 11/07/16 at 17:30; Stop at 17:29 Oxybutynin Chloride (Ditropan Tab) 5 mg TID PRN PO; Start 11/07/16 at 17:30; Stop 12/07/16 at 17:29 Oxycodone HCl 5 mg 5 mg Q4H PRN PO; Start 11/07/16 at 17:30; Stop 11/21/16 at 17 :29 Pantoprazole Sodium (Protonix Tab) 40 mg QAM PO Last administered on 11/08/16 08:14; Admin Dose 40 MG; Start 11/08/16 at 08:00; Stop 12/08/16 at 07:59 Polyethylene 17 gm 17 gm DAILY PO Last administered on 11/08/16 08:13; Admin Dose 17 GM; Start 11/08/16 at 08:00; Stop 12/08/16 at 07:59 Potassium Chloride/Sodium Chloride (Nss + 20meq KCl 1000ml) 1,000 ml @ 100 mls/ hr Q10H IV Last administered on 11/08/16 06:05; Admin Dose 100 MLS/HR; Start at 20:00; Stop 12/07/16 at 19:59 Prednisone (PredniSONE TAB) 20 mg QAM PO Last administered on 11/08/16 08:13; Admin Dose 20 MG; Start 11/08/16 at 08:00; Stop 12/08/16 at 07:59 Temazepam (Restoril Cap) 15 mg HS PRN PO; Start 11/07/16 at 17:30; Stop at 17:29 Objective Vital Signs Date Time Temp Pulse Resp B/P Pulse Ox O2 Delivery O2 Flow Rate FiO2 11/08/16 07:19 36.2 80 18 105/64 97 Room Air 11/08/16 04:14 36.2 75 18 96/62 93 Room Air 11/08/16 00:56 36.2 75 18 97/61 92 Room Air 11/08/16 00:00 92 Room Air 11/07/16 20:56 Room Air 11/07/16 19:38 36.1 87 18 106/63 97 Room Air 11/07/16 17:30 36.5 82 20 108/69 92 Room Air Physical Exam Comments: nad, aox3, conjunctival pallor anicteric s1 s2 rrr, no murmurs appreciated, right chest port clean, no erythema and no drainage ctab no w/r/r abd soft, no cva tenderness but felt pressure, nd +BS no LE edema, no erythema and only mil tenderness in right hallux Laboratory Results Last 24 Hours Test 11/07/16 18:02 11/07/16 18:05 11/08/16 02:33 11/08/16 08:12 White Blood Count 22.30 K/uL 21.44 K/uL Red Blood Count 2.54 M/uL 2.69 M/uL Hemoglobin 8.1 g/dL 8.6 g/dL Hematocrit 24.0 % 25.4 % Mean Corpuscular Volume 94.5 fL 94.4 fL Mean Corpuscular Hemoglobin 31.9 pg 32.0 pg Mean Corpuscular Hemoglobin Concent 33.8 g/dl 33.9 g/dl Platelet Count 161 K/uL 181 K/uL Mean Platelet Volume 10.3 fL 10.4 fL Neutrophils (%) (Auto) 95.6 % 94.1 % Lymphocytes (%) (Auto) 1.1 % 2.4 % Monocytes (%) (Auto) 2.5 % 2.7 % Eosinophils (%) (Auto) 0.2 % 0.1 % Basophils (%) (Auto) 0.0 % 0.0 % Neutrophils # (Auto) 21.31 K/uL 20.16 K/uL Lymphocytes # (Auto) 0.24 K/uL 0.51 K/uL Monocytes # (Auto) 0.55 K/uL 0.58 K/uL Eosinophils # (Auto) 0.05 K/uL 0.02 K/uL Basophils # (Auto) 0.01 K/uL 0.01 K/uL RDW Standard Deviation 52.6 fL 52.1 fL RDW Coefficient of Variation 15.2 % 15.0 % Immature Granulocyte % (Auto) 0.6 % 0.7 % Immature Granulocyte # (Auto) 0.14 K/uL 0.16 K/uL Dohle Bodies 1+ Erythrocyte Sedimentation Rate 61 mm/hr Prothrombin Time 12.7 SECONDS Prothromb Time International Ratio 1.2 Sodium Level 124 mmol/L 126 mmol/L 126 mmol/L Potassium Level 3.3 mmol/L 3.9 mmol/L 3.7 mmol/L Chloride Level 87 mmol/L 90 mmol/L 90 mmol/L Carbon Dioxide Level 26 mmol/L 28 mmol/L 24 mmol/L Anion Gap 11.0 mmol/L 8.0 mmol/L 12.0 mmol/L Blood Urea Nitrogen 27 mg/dl 31 mg/dl 32 mg/dl Creatinine 2.20 mg/dl 2.10 mg/dl 2.20 mg/dl Estimated GFR () 26.2 27.7 26.2 Estimated GFR (Non- 22.6 23.9 22.6 BUN/Creatinine Ratio 12.5 14.9 14.3 Random Glucose 142 mg/dl 142 mg/dl 107 mg/dl Osmolality 262 mOsm/kg Uric Acid 8.1 mg/dl Calcium Level 8.0 mg/dl 7.7 mg/dl 8.6 mg/dl Ferritin 1594.3 ng/ml Vitamin B12 Level 1238 pg/mL Folate 13.19 ng/mL Urine Color YELLOW Urine Appearance CLOUDY Urine pH 5.0 Urine Specific [place] 1.012 Urine Protein TRACE Urine Glucose (UA) NEG Urine Ketones NEG Urine Occult Blood 2+ Urine Nitrite NEG Urine Bilirubin NEG Urine Urobilinogen NEG Urine Leukocyte Esterase MODERATE Urine WBC (Auto) >30 /hpf Urine RBC (Auto) 5-10 /hpf Urine Hyaline Casts (Auto) 1-5 /lpf Urine Epithelial Cells (Auto) >30 /lpf Urine Bacteria (Auto) 2+ Urine Renal Epithelial Cells /lpf Urine Pathogenic Casts 0-3 GRANULAR CASTS /lpf Urine Osmolality 230 mOms/kg Urine Random Creatinine 120.0 mg/dl Urine Random Sodium 6 mEq/L Est Creatinine Clear Calc Drug Dose 23.7 ml/min 23.5 ml/min Iron Level 51 mcg/dl Total Iron Binding Capacity 142 mcg/dl Transferrin 121 mg/dl Transferrin % Saturation 30 % RENAL ULTRASOUND CLINICAL HISTORY: Acute renal failure. Recent stent placement. COMPARISON STUDY: CT of the abdomen and pelvis October 22, 2016 and 4 mold sprayer images from retrograde exam November 02, 2016. TECHNIQUE: Sonography of the kidneys and the urinary bladder was performed. FINDINGS: The right kidney measures 11.1 x 5 x 6.2 cm and the left measures 11.3 x 5.5 x 7.2 cm. The distal aspect of the right ureteral stent within the bladder is visualized. The proximal aspect of the stent is not visualized due to sonographic technique. Moderate right hydronephrosis is noted. This is either stable or slightly improved since prior CT of October 22, 2016. There is mild left collecting system dilatation which has increased. Ureteral jets were not identified. IMPRESSION: 1. Moderate right hydronephrosis, either unchanged or slightly improved since CT of October 22, 2016. 2. Interval development of mild left collecting system dilatation. 3. Distal aspect of the right ureteral stent identified within the bladder. Proximal aspect not well-visualized due to sonographic technique. CHEST 2 VIEWS ROUTINE CLINICAL HISTORY: Endometrial carcinoma. Shortness of breath. Evaluate for pneumonia. COMPARISON STUDY: Chest radiograph and chest CT October 31, 2016. FINDINGS: A right internal jugular [id number] is in place. There is no pneumothorax. A small right pleural effusion has developed. Several lung nodules are again noted. There is no evidence for pulmonary edema. There is no consolidation to suggest pneumonia. IMPRESSION: 1. Interval development of a small right pleural effusion. 2. No consolidation to suggest pneumonia. 3. Redemonstration of pulmonary nodules which are suggestive of metastatic disease. 4. Right paratracheal widening due to pathologic lymphadenopathy shown on prior CT. CT OF THE ABDOMEN AND PELVIS WITHOUT CONTRAST CLINICAL HISTORY: Endometrial carcinoma. Recent right-sided ureteral stent placement. COMPARISON STUDY: CT of the abdomen and pelvis October 22, 2016 and renal ultrasound performed earlier today. TECHNIQUE: Axial images of the abdomen and pelvis were obtained without IV contrast. Images were reviewed in the axial, sagittal, and coronal planes. FINDINGS: Visualized portions of the lower chest again demonstrate an 8 mm lingular nodule suggestive of metastatic disease. A small right pleural effusion is noted. There is fatty infiltration of the liver. Unenhanced images of the spleen, adrenal glands and pancreas are unremarkable. Evaluation of the abdomen and pelvis is suboptimal on this unenhanced exam. There has been interval placement of a right-sided ureteral stent. The proximal aspect the stent is within the right renal pelvis and the distal aspect is within the right posterior aspect of the bladder. Moderate right hydroureteronephrosis persists although has mildly improved since exam of October. There has been interval of mild left hydroureteronephrosis of uncertain etiology. Vaginal cuff mass, measuring approximately 5 x 3.5 cm is better depicted on prior contrast enhanced CT. Multiple necrotic right pelvic sidewall nodes are again noted as well as a necrotic aortocaval lymph node. These are similar to prior exam. There is no evidence for a bowel obstruction. No suspicious osseous lesions are present. Moderate bladder wall thickening is noted. There is adjacent infiltration. IMPRESSION: 1. Interval placement of a right ureteral stent. Proximal aspect of the stent within the right renal pelvis and distal aspect within the right posterior aspect of the bladder. Moderate right hydroureteronephrosis, mildly improved since exam of October 22, 2016. Interval development of mild left hydroureteronephrosis. 2. Redemonstration of the vaginal cuff mass as well as abdominal and pelvic lymphadenopathy suggestive of jose spread of disease. 3. Small right pleural effusion. 4. Persistent moderate bladder wall thickening. Assessment and Plan 1. PARI - baseline appears to be 0.9-1.2 - recent right stent fr right hydro which is unchanged or slightly improved based on renal US, left collecting duct fullness/mild hydro also seen on CT - will check bladder scan as this could suggest a bladder issue - UA + LE with pyuria, send for culture - will cover for healthcare associated infection with one dose vanco for now, cont cefepime - no NSAID use - may also be due to fluctuating BP causing ATN, will give 300 cc NSS now and resume maintenance IVF - recheck BMP this afternoon - dose meds with GFR~30 2. Hyponatremia - hx and urine lytes consistent with pre-renal etiology - cont IVF hydration and check u lytes again - goal for the next 24 hrs is ~130 Na 3. Possible UTI - as above - send for UCx - vanco and cefepime 4. Gout - multiple episodes of gout - not on maintenance as outpatient - currently on prednison, will continue for now until patient improves 5. h/o PE - cont lovenox, renally dose.
[2016-11-08] MEDS ORDERED: VANCOMYCIN CONSULT ACTIVE PRN (10:00)
[2016-11-08] MEDS ORDERED: VANCOMYCIN INJ 1,300 MG in SODIUM CHLORIDE 0.9% 250ML 250 ML IV ONE (10:15)
[2016-11-08] MEDS: SODIUM CHLORIDE 0.9% 500ML 300 ML IV SCH (10:25)
[2016-11-08 13:53] LABS: BUN/CREATININE RATIO 15.3 (10-20); CREATININE 2.1 mg/dl (0.60-1.20); POTASSIUM 3.9 mmol/L (3.5-5.1)
[2016-11-08 14:24] LABS: CALCIUM 8.5 mg/dl (8.5-10.1)
[2016-11-08] MEDS: ENOXAPARIN 80 MG/0.8 ML SYR SQ SCH (14:53)
--- NOTE | 2016-11-08 17:27 | Pharmacy Progress Note ---
Pharmacy Antibiotic Consult Date of Service: Nov 08, 2016. Pharmacy Dosing Scope Pharmacy is consulted to initiate vancomycin IV dosing therapy, order appropriate labs and adjust drug dose/frequency. Subjective The patient is a 65 year old female admitted on Nov 07, 2016 at 15:56 with possible complicated UTI, s/p stent placement. Objective Height (Feet): 5 Height (Inches): 6.00 Weight (Kilograms): 64.000 Lab Results (24hrs): Laboratory Tests Test 11/07/16 18:02 11/08/16 02:33 11/08/16 08:12 11/08/16 13:00 BUN/Creatinine Ratio 12.5 14.9 14.3 15.3 Blood Urea Nitrogen 27 mg/dl 31 mg/dl 32 mg/dl 32 mg/dl Creatinine 2.20 mg/dl 2.10 mg/dl 2.20 mg/dl 2.10 mg/dl White Blood Count 22.30 K/uL 21.44 K/uL Red Blood Count 2.54 M/uL 2.69 M/uL Hemoglobin 8.1 g/dL 8.6 g/dL Hematocrit 24.0 % 25.4 % Mean Corpuscular Volume 94.5 fL 94.4 fL Mean Corpuscular Hemoglobin 31.9 pg 32.0 pg Mean Corpuscular Hemoglobin Concent 33.8 g/dl 33.9 g/dl Platelet Count 161 K/uL 181 K/uL Mean Platelet Volume 10.3 fL 10.4 fL Neutrophils (%) (Auto) 95.6 % 94.1 % Lymphocytes (%) (Auto) 1.1 % 2.4 % Monocytes (%) (Auto) 2.5 % 2.7 % Eosinophils (%) (Auto) 0.2 % 0.1 % Basophils (%) (Auto) 0.0 % 0.0 % Neutrophils # (Auto) 21.31 K/uL 20.16 K/uL Lymphocytes # (Auto) 0.24 K/uL 0.51 K/uL Monocytes # (Auto) 0.55 K/uL 0.58 K/uL Eosinophils # (Auto) 0.05 K/uL 0.02 K/uL Basophils # (Auto) 0.01 K/uL 0.01 K/uL Micro Results: Urine cx pending. Recent Pertinent Medications Cefepime 1gm IV q 12h ongoing Assessment & Plan Vancomycin: Loading dose: 1300 mg IV X 1 dose (~20mg/kg). Calculated t-1/2 = 29hrs which will in light of PARI will make continued dosing difficult. Pt's baseline SCr = 0.9-1.2ml/min. Chose to order a vanco modified peak level today and random vanc level in AM 11/09 to calculate clearance. Will evaluate renal fx tomorrow and proceed with dosing. Goal peak level estimate: between 35 - 40 mcg/mL. Goal trough level estimate: between 15 - 20 mcg/mL. Peak and trough or random level has been ordered for: 11/09 w/ AM labs. Pharmacy will continue to follow and will adjust dose/frequency as necessary. Thank you
[2016-11-08 20:10] LABS: BUN/CREATININE RATIO 16.9 (10-20); CALCIUM 8.1 mg/dl (8.5-10.1); POTASSIUM 4.4 mmol/L (3.5-5.1)
[2016-11-08] MEDS: TEMAZEPAM 15 MG CAP PO PRN (20:24)
[2016-11-08] MEDS: OXYCODONE HCL IR 5 MG TAB (IMMEDIATE RELEASE) PO PRN (20:24)
[2016-11-08] MEDS: ONDANSETRON INJ 2 MG/ML 2 ML VIAL IV PRN (21:27)
[2016-11-08] MEDS: ALPRAZOLAM 0.5 MG TAB PO PRN (23:41)
[2016-11-09] VITALS (8 sets, daily range): BP systolic 110–161; BP diastolic 61–80; PULSE 75–93; TEMP 36.3–36.7; O2SAT 95–97; BMI 23.2
[2016-11-09] MEDS: OXYCODONE HCL IR 5 MG TAB (IMMEDIATE RELEASE) PO PRN ×5 (00:30→20:38)
[2016-11-09 06:28] LABS: CALCIUM 8.3 mg/dl (8.5-10.1); CREATININE 1.7 mg/dl (0.60-1.20); MAGNESIUM 1.9 mg/dl (1.8-2.4); PHOSPHORUS 2.7 mg/dl (2.5-4.9)
[2016-11-09 06:31] LABS: HEMATOCRIT 20.5 % (37-47); MEAN CELL VOLUME 96.2 fL (80-100); MEAN CORPUSCULAR HEMOGLOBIN 32.9 pg (25-34); MEAN CORPUSCULAR HGB CONC 34.1 g/dl (32-36); PLATELET COUNT 158 K/uL (130-400); RED BLOOD COUNT 2.13 M/uL (4.2-5.4)
[2016-11-09] MEDS: NSS + 20MEQ KCL 1000ML 1,000 ML IV SCH (06:48)
[2016-11-09 07:33] LABS: BASO % 0.1 %; BASO ABS # 0.01 K/uL (0-0.2); COMPLETE YES; EOS % 0.1 %; IG% 0.9 %; LYMPH % 2.7 %; LYMPH ABS # 0.52 K/uL (1.2-3.4); MONO % 6.7 %; NEUT % 89.5 %
[2016-11-09] MEDS: D5W AND 1/2NSS 1,000 ML IV SCH ×2 (08:03→19:33)
[2016-11-09] MEDS: GABAPENTIN 300 MG CAP PO SCH ×2 (08:04→19:32)
[2016-11-09] MEDS: MULTIVITAMIN TAB PO SCH (08:05)
[2016-11-09] MEDS: POLYETHYLENE (MIRALAX) 17 GM PACK PO SCH (08:05)
[2016-11-09] MEDS: DOCUSATE SODIUM 100 MG CAP PO SCH ×2 (08:05→19:32)
[2016-11-09] MEDS: ESCITALOPRAM OXALATE 10 MG TAB PO SCH (08:05)
[2016-11-09] MEDS: PANTOprazole SOD 40 MG TAB PO SCH (08:05)
--- NOTE | 2016-11-09 08:33 | Progress Note ---
Subjective Date of Service: Nov 09, 2016. Subjective Pt evaluation today including: conversation w/ patient, chart review, lab review Voiding: no voiding problems 65 yo male s/p right ureteral stent. Pt c/o right hip and groin pain radiating to her foot this morning. Denies back pain. Denies n/v. H&H noted to have dropped to 7.0 and 20.5 this morning. Hospitalist aware. Cr improved to 1.7. White count remains elevated at 19.3. Problem List Medical Problems: (1) Cervical radiculopathy Status: Acute (2) Dyspnea on exertion Status: Acute (3) Hydronephrosis Status: Acute (4) Precordial chest pain Status: Acute (5) Recurrent carcinoma of endometrium Status: Acute (6) Right sided abdominal pain Status: Acute (7) Ureteral obstruction, right Status: Acute Review of Systems Constitutional: No chills, No fever Respiratory: No shortness of breath Cardiac: No chest pain Abdomen: No nausea, No pain, No vomiting Musculoskeletal: + see HPI Female : No dysuria, No hematuria Heme: No abnormal bleeding/bruising Objective Vital Signs Date Time Temp Pulse Resp B/P Pulse Ox O2 Delivery O2 Flow Rate FiO2 11/09/16 07:25 36.5 83 20 130/75 95 Room Air 11/09/16 04:40 36.7 81 18 110/61 95 Room Air 11/09/16 00:00 Room Air 11/08/16 23:45 36.4 80 20 106/56 95 Room Air 11/08/16 20:00 Room Air 11/08/16 19:01 36.5 85 20 127/76 95 Room Air 11/08/16 16:00 97 Room Air 11/08/16 14:59 36.5 82 20 118/69 96 Room Air 11/08/16 11:40 36.2 100 18 122/65 95 Room Air 11/08/16 08:30 97 Room Air Physical Exam General Appearance: no apparent distress Eyes: normal inspection ENT: hearing grossly normal Neck: no JVD Respiratory/Chest: no respiratory distress, no accessory muscle use Cardiovascular: no JVD Extremities: normal inspection Neurologic/Psychiatric: alert, normal mood/affect, oriented x 3 Skin: normal color Laboratory Results Last 24 Hours Test 11/08/16 09:30 11/08/16 13:00 11/08/16 15:27 11/08/16 19:40 Urine Osmolality 162 mOms/kg Urine Random Creatinine 35.0 mg/dl Urine Random Sodium 9 mEq/L Urine Random Potassium 5.1 mEq/L Urine Random Chloride < 10 mEq/L Sodium Level 128 mmol/L 130 mmol/L Potassium Level 3.9 mmol/L 4.4 mmol/L Chloride Level 94 mmol/L 98 mmol/L Carbon Dioxide Level 23 mmol/L 25 mmol/L Anion Gap 11.0 mmol/L 7.0 mmol/L Blood Urea Nitrogen 32 mg/dl 34 mg/dl Creatinine 2.10 mg/dl 2.00 mg/dl Est Creatinine Clear Calc Drug Dose 24.7 ml/min 25.9 ml/min Estimated GFR () 27.7 29.4 Estimated GFR (Non- 23.9 25.4 BUN/Creatinine Ratio 15.3 16.9 Random Glucose 147 mg/dl 141 mg/dl Calcium Level 8.5 mg/dl 8.1 mg/dl Random Vancomycin Level 26.2 mcg/ml Heparin Anti-Xa Act, Low Molec Wt 0.55 IU/ML Test 11/09/16 05:35 White Blood Count 19.30 K/uL Red Blood Count 2.13 M/uL Hemoglobin 7.0 g/dL Hematocrit 20.5 % Mean Corpuscular Volume 96.2 fL Mean Corpuscular Hemoglobin 32.9 pg Mean Corpuscular Hemoglobin Concent 34.1 g/dl Platelet Count 158 K/uL Mean Platelet Volume 11.0 fL Neutrophils (%) (Auto) 89.5 % Lymphocytes (%) (Auto) 2.7 % Monocytes (%) (Auto) 6.7 % Eosinophils (%) (Auto) 0.1 % Basophils (%) (Auto) 0.1 % Neutrophils # (Auto) 17.29 K/uL Lymphocytes # (Auto) 0.52 K/uL Monocytes # (Auto) 1.29 K/uL Eosinophils # (Auto) 0.02 K/uL Basophils # (Auto) 0.01 K/uL RDW Standard Deviation 54.8 fL RDW Coefficient of Variation 15.6 % Immature Granulocyte % (Auto) 0.9 % Immature Granulocyte # (Auto) 0.17 K/uL Red Blood Cell Morphology Unremarkable Sodium Level 138 mmol/L Potassium Level 5.0 mmol/L Chloride Level 106 mmol/L Carbon Dioxide Level 28 mmol/L Anion Gap 4.0 mmol/L Blood Urea Nitrogen 31 mg/dl Creatinine 1.70 mg/dl Est Creatinine Clear Calc Drug Dose 30.5 ml/min Estimated GFR () 35.8 Estimated GFR (Non- 30.9 BUN/Creatinine Ratio 18.0 Random Glucose 107 mg/dl Calcium Level 8.3 mg/dl Phosphorus Level 2.7 mg/dl Magnesium Level 1.9 mg/dl Random Vancomycin Level 12.8 mcg/ml Assessment and Plan A/P: Bilateral hydronephrosis, ARF AFVSS. Creatinine improving. CT reviewed with Dr. Kirkland. Slight improvement in her right hydro noted since stent placement. Mild left hydro noted as well. RIght groin and hip pain radiating to her right foot not consistent with renal colic. If right hydro or renal failure were to worsen, would need to consider transferring her for PCN placement on the right. Would also consider PCN vs stent placement on the left. Continue checking bladder scans qshift to ensure her bladder is emptying appropriately, and incomplete emptying is not contributing to her ARF. If >250ml , would place johnson catheter. Continue to monitor H&H. Transfusions PRN per primary service. Will continue to follow along with primary service at this time.
--- NOTE | 2016-11-09 09:01 | Progress Note ---
Subjective Date of Service: Nov 09, 2016. Subjective Pt evaluation today including: conversation w/ patient, conversation w/ family , physical exam, lab review, review of studies, review of inpatient medication list Afebrile overnight. Complaining of right LQ abd pain radiating to right gluteal area and shooting down her leg at times. No chest pain, no sob. Problem List Medical Problems: (1) Cervical radiculopathy Status: Acute (2) Dyspnea on exertion Status: Acute (3) Hydronephrosis Status: Acute (4) Precordial chest pain Status: Acute (5) Recurrent carcinoma of endometrium Status: Acute (6) Right sided abdominal pain Status: Acute (7) Ureteral obstruction, right Status: Acute Review of Systems All Other Systems: Reviewed and Negative Medications Acetaminophen (Tylenol Tab) 650 mg Q4H PRN PO; Start 11/07/16 at 17:30; Stop 12/07/16 at 17:29 Al Hydrox/Mg Hydrox/Simethicone (Maalox Max Susp) 15 ml Q4H PRN PO; Start 11/07 at 17:30; Stop 12/07/16 at 17:29 Albuterol (Ventolin Hfa Inhaler) 2 puffs Q6H PRN INH; Start 11/07/16 at 17:30; Stop 12/07/16 at 17:29 Alprazolam (Xanax Tab) 0.5 mg Q6H PRN PO Last administered on 11/08/16 23:41; Admin Dose 0.5 MG; Start 11/07/16 at 17:30; Stop 12/07/16 at 17:29 Cefepime HCl/ Dextrose (Maxipime IV/D5 100ml) 111.3 ml @ 200 mls/hr Q12 IV Last administered on 11/08/16 20:23; Admin Dose 200 MLS/HR; Start 11/07/16 at 21:00; Stop 11/17/16 at 20:59 Dextrose/Sodium Chloride (D5W And 1/2nss) 1,000 ml @ 84 mls/hr [id number] IV Last administered on 11/09/16 08:03; Admin Dose 84 MLS/HR; Start 11/09/16 at 07:15; Stop 12/09/16 at 07:14 Docusate Sodium (coLACE CAP) 100 mg BID PO Last administered on 11/09/16 08:05 ; Admin Dose 100 MG; Start 11/07/16 at 20:45; Stop 12/07/16 at 20:44 Enoxaparin Sodium (Lovenox Inj) 80 mg DAILY@1400 SQ Last administered on 14:53; Admin Dose 80 MG; Start 11/08/16 at 14:00; Stop 12/08/16 at 13:59 Escitalopram Oxalate (Lexapro Tab) 10 mg QAM PO Last administered on 11/09/16 08:05; Admin Dose 10 MG; Start 11/08/16 at 08:00; Stop 12/08/16 at 07:59 Gabapentin (Neurontin Cap) 300 mg BID PO Last administered on 11/09/16 08:04; Admin Dose 300 MG; Start 11/08/16 at 08:00; Stop 12/08/16 at 07:59 Heparin Sodium (Porcine) 5 ml 5 ml PRN PRN IV; Start 11/09/16 at 01:00; Stop at 00:59 Loperamide HCl (Imodium Cap) 2 mg DAILY PRN PO; Start 11/07/16 at 18:15; Stop 12/07/16 at 18:14 Magnesium Hydroxide (Milk Of Magnesia Susp) 30 ml Q6H PRN PO; Start 11/07/16 at 17:30; Stop 12/07/16 at 17:29 Multivitamins (Multivitamin Tab) 1 tab QAM PO Last administered on 11/09/16 08: 05; Admin Dose 1 TAB; Start 11/08/16 at 08:00; Stop 12/08/16 at 07:59 Ondansetron HCl (Zofran Inj) 4 mg Q6H PRN IV Last administered on 11/08/16 21: 27; Admin Dose 4 MG; Start 11/07/16 at 17:30; Stop 12/07/16 at 17:29 Oxybutynin Chloride (Ditropan Tab) 5 mg TID PRN PO; Start 11/07/16 at 17:30; Stop 12/07/16 at 17:29 Oxycodone HCl (Roxicodone Immediate Rel Tab) 5 mg Q4H PRN PO Last administered on 11/09/16 08:13; Admin Dose 5 MG; Start 11/07/16 at 17:30; Stop 11/21/16 at 17 :29 Pantoprazole Sodium (Protonix Tab) 40 mg QAM PO Last administered on 11/09/16 08:05; Admin Dose 40 MG; Start 11/08/16 at 08:00; Stop 12/08/16 at 07:59 Polyethylene 17 gm 17 gm DAILY PO Last administered on 11/09/16 08:05; Admin Dose 17 GM; Start 11/08/16 at 08:00; Stop 12/08/16 at 07:59 Prednisone (PredniSONE TAB) 20 mg QAM PO Last administered on 11/09/16 08:05; Admin Dose 20 MG; Start 11/08/16 at 08:00; Stop 12/08/16 at 07:59 Temazepam (Restoril Cap) 15 mg HS PRN PO Last administered on 11/08/16 20:24; Admin Dose 15 MG; Start 11/07/16 at 17:30; Stop 12/07/16 at 17:29 Vancomycin HCl (Consult) 1 ea UD PRN N/A; Start 11/08/16 at 10:00; Stop at 09:59 Objective Vital Signs Date Time Temp Pulse Resp B/P Pulse Ox O2 Delivery O2 Flow Rate FiO2 11/09/16 07:25 36.5 83 20 130/75 95 Room Air 11/09/16 04:40 36.7 81 18 110/61 95 Room Air 11/09/16 00:00 Room Air 11/08/16 23:45 36.4 80 20 106/56 95 Room Air 11/08/16 20:00 Room Air 11/08/16 19:01 36.5 85 20 127/76 95 Room Air 11/08/16 16:00 97 Room Air 11/08/16 14:59 36.5 82 20 118/69 96 Room Air 11/08/16 11:40 36.2 100 18 122/65 95 Room Air Physical Exam Comments: nad, aox3 anicteric s1 s2 RRR no murmurs appreciated, right ches port no erythema, no drainage ctab no w/r/r abd soft nt nd +BS no LE edema Laboratory Results Last 24 Hours Test 11/08/16 09:30 11/08/16 13:00 4/26/17 15:27 11/08/16 19:40 Urine Osmolality 162 mOms/kg Urine Random Creatinine 35.0 mg/dl Urine Random Sodium 9 mEq/L Urine Random Potassium 5.1 mEq/L Urine Random Chloride < 10 mEq/L Sodium Level 128 mmol/L 130 mmol/L Potassium Level 3.9 mmol/L 4.4 mmol/L Chloride Level 94 mmol/L 98 mmol/L Carbon Dioxide Level 23 mmol/L 25 mmol/L Anion Gap 11.0 mmol/L 7.0 mmol/L Blood Urea Nitrogen 32 mg/dl 34 mg/dl Creatinine 2.10 mg/dl 2.00 mg/dl Est Creatinine Clear Calc Drug Dose 24.7 ml/min 25.9 ml/min Estimated GFR () 27.7 29.4 Estimated GFR (Non- 23.9 25.4 BUN/Creatinine Ratio 15.3 16.9 Random Glucose 147 mg/dl 141 mg/dl Calcium Level 8.5 mg/dl 8.1 mg/dl Random Vancomycin Level 26.2 mcg/ml Heparin Anti-Xa Act, Low Molec Wt 0.55 IU/ML Test 11/09/16 05:35 White Blood Count 19.30 K/uL Red Blood Count 2.13 M/uL Hemoglobin 7.0 g/dL Hematocrit 20.5 % Mean Corpuscular Volume 96.2 fL Mean Corpuscular Hemoglobin 32.9 pg Mean Corpuscular Hemoglobin Concent 34.1 g/dl Platelet Count 158 K/uL Mean Platelet Volume 11.0 fL Neutrophils (%) (Auto) 89.5 % Lymphocytes (%) (Auto) 2.7 % Monocytes (%) (Auto) 6.7 % Eosinophils (%) (Auto) 0.1 % Basophils (%) (Auto) 0.1 % Neutrophils # (Auto) 17.29 K/uL Lymphocytes # (Auto) 0.52 K/uL Monocytes # (Auto) 1.29 K/uL Eosinophils # (Auto) 0.02 K/uL Basophils # (Auto) 0.01 K/uL RDW Standard Deviation 54.8 fL RDW Coefficient of Variation 15.6 % Immature Granulocyte % (Auto) 0.9 % Immature Granulocyte # (Auto) 0.17 K/uL Red Blood Cell Morphology Unremarkable Sodium Level 138 mmol/L Potassium Level 5.0 mmol/L Chloride Level 106 mmol/L Carbon Dioxide Level 28 mmol/L Anion Gap 4.0 mmol/L Blood Urea Nitrogen 31 mg/dl Creatinine 1.70 mg/dl Est Creatinine Clear Calc Drug Dose 30.5 ml/min Estimated GFR () 35.8 Estimated GFR (Non- 30.9 BUN/Creatinine Ratio 18.0 Random Glucose 107 mg/dl Calcium Level 8.3 mg/dl Phosphorus Level 2.7 mg/dl Magnesium Level 1.9 mg/dl Random Vancomycin Level 12.8 mcg/ml Assessment and Plan 1. PARI - baseline appears to be 0.9-1.2 - recent right stent fr right hydro which is unchanged or slightly improved based on renal US, left collecting duct fullness/mild hydro also seen on CT - multifactorial with volume depletion + UTI + ATN - improving slowly 2. Hyponatremia - hx and urine lytes consistent with pre-renal etiology - decrease IVF rate, change to 1/2 NSS with 20 meq KCl - now normal range - recheck in PM 3. Possible UTI - UCx not growing microorganisms however this sample was sent after patient was already on abx - cont to treat with cefepime and will switch to levaquin - will give another dose of vanco as well due to recent instrumentation 4. Gout - multiple episodes of gout - not on maintenance as outpatient - currently on prednisone, will continue for now until patient improves then slowly taper 5. h/o PE - cont lovenox, renally dose.
[2016-11-09] MEDS: CEFEPIME IV 1,000 MG in DEXTROSE 5% 100ML 100 ML IV SCH ×2 (09:35→20:35)
[2016-11-09] MEDS ORDERED: VANCOMYCIN INJ 1,000 MG in SODIUM CHLORIDE 0.9% 250ML 250 ML IV ONE (10:00)
--- NOTE | 2016-11-09 10:17 | Pharmacy Progress Note ---
Pharmacy Antibiotic Prog Note Date of Service Nov 09, 2016. Subjective The patient is currently receiving cefepime 1 gm iv q 12 hrs and vancomycin dosed based upon levels for possible UTI The patient is currently on day #2 of IV therapy. Objective Height (Feet): 5 Height (Inches): 6.00 Weight (Kilograms): 65.300 Levels: Item Value Date Time Random Vancomycin Level 12.8 mcg/ml 11/09/16 0535 Random Vancomycin Level 26.2 mcg/ml 11/08/16 1527 Lab Results (24hrs): Laboratory Tests Test 11/08/16 13:00 11/08/16 19:40 11/09/16 05:35 BUN/Creatinine Ratio 15.3 16.9 18.0 Blood Urea Nitrogen 32 mg/dl 34 mg/dl 31 mg/dl Creatinine 2.10 mg/dl 2.00 mg/dl 1.70 mg/dl White Blood Count 19.30 K/uL Red Blood Count 2.13 M/uL Hemoglobin 7.0 g/dL Hematocrit 20.5 % Mean Corpuscular Volume 96.2 fL Mean Corpuscular Hemoglobin 32.9 pg Mean Corpuscular Hemoglobin Concent 34.1 g/dl Platelet Count 158 K/uL Mean Platelet Volume 11.0 fL Neutrophils (%) (Auto) 89.5 % Lymphocytes (%) (Auto) 2.7 % Monocytes (%) (Auto) 6.7 % Eosinophils (%) (Auto) 0.1 % Basophils (%) (Auto) 0.1 % Neutrophils # (Auto) 17.29 K/uL Lymphocytes # (Auto) 0.52 K/uL Monocytes # (Auto) 1.29 K/uL Eosinophils # (Auto) 0.02 K/uL Basophils # (Auto) 0.01 K/uL Micro Results: Item Value Date Time Urine Culture Received 11/08/16 0930 Urine , Clean Catch Pending Assessment & Plan Patient receiving vancomycin and cefepime (not consult) for possible UTI. UC is pending. Vancomycin: * Patient received LD of 1300 mg (~20 mg/kg) x 1 ; random level this am was ~13 mcg/ml (goal 15-20 mcg/ml for UTI) * Scr continues to improve today, from 2.2 to 1.7 mg/dL (CrCl ~30 ml/min); baseline Scr closer to 0.9-1.2 mg/dL * Will continue to dose by levels until renal function is stable; will dose with vancomycin 1000 mg (~15 mg/kg) x 1 today * Will order a random level tomorrow am to assist with further dosing, estimated level tomorrow am still >15 mcg/ml * Estimated kinetics: t/12~24 hrs, ke~0.029 hr-1 Pharmacy will continue to follow and will adjust dose/frequency as necessary. Thank you
--- NOTE | 2016-11-09 10:19 | Clinical Documentation Query ---
COLT Wick : CLINICAL DOCUMENTATION QUERY Patient is a 65 year old female admitted for evaluation and treatment of hyponatremia. Documentation supports the possibility of a UTI. Notes that she recently underwent right ureteral stenting for obstruction in the setting of endometrial cancer. If, in your clinical opinion, the possible UTI is the result of the previously discussed procedure, then consider documentation as suggested below as this directly impacts DRG assignment. Thank you. In your clinical opinion is this patient being managed for: ( X ) Possible postprocedural UTI due to recent right ureteral stenting, a complication of care ( ) Other explanation of clinical findings (Please Explain) ( ) Unable to determine (Please Define) ( ) Need to Discuss ( ) Not Agree The medical record reflects the following clinical findings, treatment, and risk factors. Clinical Indicators: As above Treatment: UA, C&S, Vancomycin, Cefepime Risk Factors: Recent right ureteral stent insertion. Please clarify and document your clinical opinion in the progress notes and discharge summary. Terms such as "probable", "suspected", "likely", "questionable", "possible", or "still to be ruled out" are acceptable. IF IN AGREEMENT, YOU MUST DOCUMENT ABOVE DIAGNOSTIC STATEMENT IN DAILY PROGRESS NOTES AND DISCHARGE SUMMARY. This document is not part of the patient's record. Thank You, Fortunato Atwood RN [phone]
[2016-11-09 12:19] LABS: HEMATOCRIT 22.7 % (37-47)
[2016-11-09 12:44] LABS: BUN/CREATININE RATIO 19.5 (10-20); CALCIUM 8.6 mg/dl (8.5-10.1); CREATININE 1.5 mg/dl (0.60-1.20); POTASSIUM 4.7 mmol/L (3.5-5.1)
[2016-11-09] MEDS ORDERED: VANCOMYCIN INJ 1,000 MG in SODIUM CHLORIDE 0.9% 250ML 250 ML IV STA (14:21)
[2016-11-09] MEDS: ENOXAPARIN 80 MG/0.8 ML SYR SQ SCH (16:11)
[2016-11-09] MEDS: ALPRAZOLAM 0.5 MG TAB PO PRN (19:35)
[2016-11-09] MEDS: TEMAZEPAM 15 MG CAP PO PRN (20:40)
[2016-11-10] MEDS: MoRPHine SULFATE 4 MG/ML 1 ML CARP\\VIAL IV PRN ×2 (01:46→08:05)
[2016-11-10 03:41] VITALS: BP 167/77; PULSE 112; TEMP 36.7; O2SAT 95
[2016-11-10] MEDS: OXYCODONE HCL IR 5 MG TAB (IMMEDIATE RELEASE) PO PRN ×4 (05:47→21:02)
[2016-11-10 06:18] VITALS: BMI 23.0
[2016-11-10] MEDS: D5W AND 1/2NSS 1,000 ML IV SCH (06:19)
[2016-11-10 07:26] VITALS: BP 168/81; PULSE 86; TEMP 36.6; O2SAT 93
[2016-11-10] MEDS: ONDANSETRON INJ 2 MG/ML 2 ML VIAL IV PRN (08:04)
[2016-11-10] MEDS: PANTOprazole SOD 40 MG TAB PO SCH (08:08)
[2016-11-10] MEDS: ESCITALOPRAM OXALATE 10 MG TAB PO SCH (08:08)
[2016-11-10] MEDS: GABAPENTIN 300 MG CAP PO SCH ×3 (08:08→21:03)
[2016-11-10] MEDS: DOCUSATE SODIUM 100 MG CAP PO SCH ×2 (08:08→21:02)
[2016-11-10] MEDS: MULTIVITAMIN TAB PO SCH (08:09)
[2016-11-10] MEDS: POLYETHYLENE (MIRALAX) 17 GM PACK PO SCH (08:09)
[2016-11-10] MEDS: CEFEPIME IV 1,000 MG in DEXTROSE 5% 100ML 100 ML IV SCH ×2 (08:12→21:02)
[2016-11-10 08:22] LABS: HEMATOCRIT 23.3 % (37-47); MEAN CELL VOLUME 96.7 fL (80-100); MEAN CORPUSCULAR HEMOGLOBIN 32.8 pg (25-34); MEAN CORPUSCULAR HGB CONC 33.9 g/dl (32-36); MEAN PLATELET VOLUME 10.6 fL (7.4-10.4); PLATELET COUNT 189 K/uL (130-400); RED BLOOD COUNT 2.41 M/uL (4.2-5.4); WHITE BLOOD COUNT 30.83 K/uL (4.8-10.8)
[2016-11-10 08:44] LABS: BUN/CREATININE RATIO 18.4 (10-20); CREATININE 1.2 mg/dl (0.60-1.20); MAGNESIUM 1.2 mg/dl (1.8-2.4); PHOSPHORUS 2.8 mg/dl (2.5-4.9)
[2016-11-10 08:56] LABS: BASO ABS # 0.01 K/uL (0-0.2); COMPLETE YES; IG% 1.4 %; LYMPH % 4.2 %; MONO % 4.7 %; NEUT % 88.7 %
--- NOTE | 2016-11-10 08:56 | Progress Note ---
Subjective Date of Service: Nov 10, 2016. Subjective Voiding: no voiding problems 65 year old female with metastatic endometrial cancer needing ureteral stent d/ t pelvic mass causing hydro. She continues to have pain- seems like it mostly in her LE today. Her creatinine is improving as well as her white count. Problem List Medical Problems: (1) Cervical radiculopathy Status: Acute (2) Dyspnea on exertion Status: Acute (3) Hydronephrosis Status: Acute (4) Precordial chest pain Status: Acute (5) Recurrent carcinoma of endometrium Status: Acute (6) Right sided abdominal pain Status: Acute (7) Ureteral obstruction, right Status: Acute Review of Systems Constitutional: No fever ENT: No hearing loss Respiratory: No shortness of breath Abdomen: + see HPI Musculoskeletal: + see HPI Neurologic: + numbness/tingling, + weakness Heme: No abnormal bleeding/bruising Endo: No fatigue Objective Vital Signs Date Time Temp Pulse Resp B/P Pulse Ox O2 Delivery O2 Flow Rate FiO2 11/10/16 07:26 36.6 86 16 168/81 93 Room Air 11/10/16 03:41 36.7 112 20 167/77 95 Room Air 11/10/16 00:01 Room Air 11/09/16 23:47 36.6 93 20 161/78 97 Room Air 11/09/16 20:00 Room Air 11/09/16 19:22 36.6 83 20 153/80 96 Room Air 11/09/16 16:06 36.3 75 16 122/71 95 Room Air 11/09/16 15:30 97 Room Air 11/09/16 11:32 36.5 76 18 129/74 97 Room Air Physical Exam General Appearance: WD/WN Respiratory/Chest: no respiratory distress, no accessory muscle use Extremities: no calf tenderness Neurologic/Psychiatric: alert, normal mood/affect, oriented x 3 Skin: normal color Laboratory Results Last 24 Hours Test 11/09/16 12:10 11/10/16 07:36 Hemoglobin 7.5 g/dL 7.9 g/dL Hematocrit 22.7 % 23.3 % Sodium Level 138 mmol/L 137 mmol/L Potassium Level 4.7 mmol/L 4.0 mmol/L Chloride Level 106 mmol/L 101 mmol/L Carbon Dioxide Level 25 mmol/L 25 mmol/L Anion Gap 7.0 mmol/L 11.0 mmol/L Blood Urea Nitrogen 29 mg/dl 22 mg/dl Creatinine 1.50 mg/dl 1.20 mg/dl Est Creatinine Clear Calc Drug Dose 34.5 ml/min 43.1 ml/min Estimated GFR () 41.6 54.5 Estimated GFR (Non- 35.9 47.1 BUN/Creatinine Ratio 19.5 18.4 Random Glucose 100 mg/dl 105 mg/dl Calcium Level 8.6 mg/dl White Blood Count 30.83 K/uL Red Blood Count 2.41 M/uL Mean Corpuscular Volume 96.7 fL Mean Corpuscular Hemoglobin 32.8 pg Mean Corpuscular Hemoglobin Concent 33.9 g/dl Platelet Count 189 K/uL Mean Platelet Volume 10.6 fL RDW Standard Deviation 56.2 fL RDW Coefficient of Variation 16.1 % Nucleated RBC Absolute Count (auto) 0.05 K/uL Nucleated Red Blood Cells % 0.2 % Phosphorus Level 2.8 mg/dl Magnesium Level 1.2 mg/dl Assessment and Plan [place] d/t pelvic mass. Creatinine is improving. No surgical intervention need at this time. If pt would decompensate, creatinine rises or pain increased d/t hydro she would need to be transferred to tertiary care for percutaneous nephrostomy tubes. Given pt's pain level discussed possible palliative care with pt and - she is interested. I discussed this with charge nurse to notify hospitalist.
[2016-11-10 09:03] LABS: CALCIUM 9.1 mg/dl (8.5-10.1)
--- NOTE | 2016-11-10 09:47 | Progress Note ---
Subjective Date of Service: Nov 10, 2016. Subjective Pt evaluation today including: conversation w/ patient, physical exam, lab review, review of studies, review of inpatient medication list Patient had significant RLQ pain, radiates to gluteal area and down her legs. Has not had much of an appetite since pain has worsened. Remains afebrile. No urinary symptoms elicited. Problem List Medical Problems: (1) Cervical radiculopathy Status: Acute (2) Dyspnea on exertion Status: Acute (3) Hydronephrosis Status: Acute (4) Precordial chest pain Status: Acute (5) Recurrent carcinoma of endometrium Status: Acute (6) Right sided abdominal pain Status: Acute (7) Ureteral obstruction, right Status: Acute Review of Systems All Other Systems: Reviewed and Negative Medications Acetaminophen (Tylenol Tab) 650 mg Q4H PRN PO; Start 11/07/16 at 17:30; Stop 12/07/16 at 17:29 Al Hydrox/Mg Hydrox/Simethicone (Maalox Max Susp) 15 ml Q4H PRN PO; Start 11/07 at 17:30; Stop 12/07/16 at 17:29 Albuterol (Ventolin Hfa Inhaler) 2 puffs Q6H PRN INH; Start 11/07/16 at 17:30; Stop 12/07/16 at 17:29 Alprazolam (Xanax Tab) 0.5 mg Q6H PRN PO Last administered on 11/09/16 19:35; Admin Dose 0.5 MG; Start 11/07/16 at 17:30; Stop 12/07/16 at 17:29 Cefepime HCl/ Dextrose (Maxipime IV/D5 100ml) 111.3 ml @ 200 mls/hr Q12 IV Last administered on 11/10/16 08:12; Admin Dose 200 MLS/HR; Start 11/07/16 at 21:00; Stop 11/17/16 at 20:59 Dextrose/Sodium Chloride (D5W And 1/2nss) 1,000 ml @ 84 mls/hr [id number] IV Last administered on 11/10/16 06:19; Admin Dose 84 MLS/HR; Start 11/09/16 at 07:15; Stop 12/09/16 at 07:14 Docusate Sodium (coLACE CAP) 100 mg BID PO Last administered on 11/10/16 08:08 ; Admin Dose 100 MG; Start 11/07/16 at 20:45; Stop 12/07/16 at 20:44 Enoxaparin Sodium (Lovenox Inj) 80 mg DAILY@1400 SQ Last administered on 16:11; Admin Dose 80 MG; Start 11/08/16 at 14:00; Stop 12/08/16 at 13:59 Escitalopram Oxalate (Lexapro Tab) 10 mg QAM PO Last administered on 11/10/16 08:08; Admin Dose 10 MG; Start 11/08/16 at 08:00; Stop 12/08/16 at 07:59 Gabapentin 300 mg 300 mg TID PO; Start 11/10/16 at 14:00; Stop 12/10/16 at 13:59 Heparin Sodium (Porcine) 5 ml 5 ml PRN PRN IV Last administered on 11/09/16 11 :38; Admin Dose 5 ML; Start 11/09/16 at 01:00; Stop 12/09/16 at 00:59 Loperamide HCl (Imodium Cap) 2 mg DAILY PRN PO; Start 11/07/16 at 18:15; Stop 12/07/16 at 18:14 Magnesium Hydroxide (Milk Of Magnesia Susp) 30 ml Q6H PRN PO; Start 11/07/16 at 17:30; Stop 12/07/16 at 17:29 Magnesium Sulfate 1 gm/Prmx 100 ml @ 100 mls/hr 1000,1100 IV; Start 11/10/16 at 10:00; Stop 11/10/16 at 11:59 Morphine Sulfate (MoRPHine SULFATE INJ) 4 mg Q4H PRN IV; Start 11/10/16 at 11: 00; Stop 11/24/16 at 10:59 Multivitamins (Multivitamin Tab) 1 tab QAM PO Last administered on 11/10/16 08: 09; Admin Dose 1 TAB; Start 11/08/16 at 08:00; Stop 12/08/16 at 07:59 Ondansetron HCl (Zofran Inj) 4 mg Q6H PRN IV Last administered on 11/10/16 08: 04; Admin Dose 4 MG; Start 11/07/16 at 17:30; Stop 12/07/16 at 17:29 Oxybutynin Chloride (Ditropan Tab) 5 mg TID PRN PO; Start 11/07/16 at 17:30; Stop 12/07/16 at 17:29 Oxycodone HCl (Roxicodone Immediate Rel Tab) `1-2 tabs for pain 1 tab ... Q4H PRN PO Last administered on 11/10/16 05:47; Admin Dose 10 MG; Start 11/09/16 at 09:00; Stop 11/23/16 at 08:59 Pantoprazole Sodium (Protonix Tab) 40 mg QAM PO Last administered on 11/10/16 08:08; Admin Dose 40 MG; Start 11/08/16 at 08:00; Stop 12/08/16 at 07:59 Polyethylene 17 gm 17 gm DAILY PO Last administered on 11/10/16 08:09; Admin Dose 17 GM; Start 11/08/16 at 08:00; Stop 12/08/16 at 07:59 Prednisone (PredniSONE TAB) 20 mg QAM PO Last administered on 11/10/16 08:08; Admin Dose 20 MG; Start 11/08/16 at 08:00; Stop 12/08/16 at 07:59 Temazepam (Restoril Cap) 15 mg HS PRN PO Last administered on 11/09/16 20:40; Admin Dose 15 MG; Start 11/07/16 at 17:30; Stop 12/07/16 at 17:29 Vancomycin HCl (Consult) 1 ea UD PRN N/A; Start 11/08/16 at 10:00; Stop at 09:59 Vancomycin HCl/ Sodium Chloride (Vancomycin Inj/ Nss 250ml) 270 ml @ 125 mls/ hr Q18H IV; Start 11/10/16 at 10:00; Stop 11/20/16 at 09:59 Objective Vital Signs Date Time Temp Pulse Resp B/P Pulse Ox O2 Delivery O2 Flow Rate FiO2 11/10/16 07:26 36.6 86 16 168/81 93 Room Air 11/10/16 03:41 36.7 112 20 167/77 95 Room Air 11/10/16 00:01 Room Air 11/09/16 23:47 36.6 93 20 161/78 97 Room Air 11/09/16 20:00 Room Air 11/09/16 19:22 36.6 83 20 153/80 96 Room Air 11/09/16 16:06 36.3 75 16 122/71 95 Room Air 11/09/16 15:30 97 Room Air 11/09/16 11:32 36.5 76 18 129/74 97 Room Air Physical Exam Comments: nad, aox3, anicteric s1 s2 rrr, no murmurs appreciated ctab no w/r/r abd soft nd +BS, RLQ tenderness no LE edema right chest port c/d/i, no drainage Laboratory Results Last 24 Hours Test 11/09/16 12:10 11/10/16 07:36 Hemoglobin 7.5 g/dL 7.9 g/dL Hematocrit 22.7 % 23.3 % Sodium Level 138 mmol/L 137 mmol/L Potassium Level 4.7 mmol/L 4.0 mmol/L Chloride Level 106 mmol/L 101 mmol/L Carbon Dioxide Level 25 mmol/L 25 mmol/L Anion Gap 7.0 mmol/L 11.0 mmol/L Blood Urea Nitrogen 29 mg/dl 22 mg/dl Creatinine 1.50 mg/dl 1.20 mg/dl Est Creatinine Clear Calc Drug Dose 34.5 ml/min 43.1 ml/min Estimated GFR () 41.6 54.5 Estimated GFR (Non- 35.9 47.1 BUN/Creatinine Ratio 19.5 18.4 Random Glucose 100 mg/dl 105 mg/dl Calcium Level 8.6 mg/dl 9.1 mg/dl White Blood Count 30.83 K/uL Red Blood Count 2.41 M/uL Mean Corpuscular Volume 96.7 fL Mean Corpuscular Hemoglobin 32.8 pg Mean Corpuscular Hemoglobin Concent 33.9 g/dl Platelet Count 189 K/uL Mean Platelet Volume 10.6 fL Neutrophils (%) (Auto) 88.7 % Lymphocytes (%) (Auto) 4.2 % Monocytes (%) (Auto) 4.7 % Eosinophils (%) (Auto) 1.0 % Basophils (%) (Auto) 0.0 % Neutrophils # (Auto) 27.31 K/uL Lymphocytes # (Auto) 1.30 K/uL Monocytes # (Auto) 1.46 K/uL Eosinophils # (Auto) 0.32 K/uL Basophils # (Auto) 0.01 K/uL RDW Standard Deviation 56.2 fL RDW Coefficient of Variation 16.1 % Immature Granulocyte % (Auto) 1.4 % Immature Granulocyte # (Auto) 0.43 K/uL Nucleated RBC Absolute Count (auto) 0.05 K/uL Nucleated Red Blood Cells % 0.2 % Red Blood Cell Morphology Unremarkable Phosphorus Level 2.8 mg/dl Magnesium Level 1.2 mg/dl Random Vancomycin Level 14.4 mcg/ml Assessment and Plan 1. PARI - baseline appears to be 0.9-1.2 - recent right stent fr right hydro which is unchanged or slightly improved based on renal US, left collecting duct fullness/mild hydro also seen on CT - multifactorial with volume depletion + UTI + ATN - improving slowly 2. Hyponatremia - hx and urine lytes consistent with pre-renal etiology - can stop IVF as she is able t take po adequately - now normal range 3. Possible UTI - UCx not growing microorganisms however this sample was sent after patient was already on abx - though she is afebrile, with worsening leukocytosis, ID will be consulted for further guidance on abx therapy - worsening leukocytosis may also be related to steroids 4. Gout - multiple episodes of gout - not on maintenance as outpatient - currently on prednisone, will taper rapidly 5. h/o PE - cont lovenox - will give BID dosing with improving renal function
--- NOTE | 2016-11-10 10:10 | Pharmacy Progress Note ---
Pharmacy Antibiotic Prog Note Date of Service Nov 10, 2016. Subjective The patient is currently receiving Cefepime 1,000mg IV Q12hrs & Vancomycin 1, 000mg IV x one time doses based on random levels. Empiric/level based vancomycin dosing d/t PARI. The patient is currently on day # 3 of Vancomycin + Cefepime IV therapy. Objective Height (Feet): 5 Height (Inches): 6.00 Weight (Kilograms): 64.700 Levels: Item Value Date Time Random Vancomycin Level 26.2 mcg/ml 11/08/16 1527 Random Vancomycin Level 12.8 mcg/ml 11/09/16 0535 Random Vancomycin Level 14.4 mcg/ml 11/10/16 0736 Lab Results (24hrs): Item Value Date Time Creatinine 1.20 mg/dl # 11/10/16 0736 Creatinine 1.50 mg/dl H 11/09/16 1210 Creatinine 1.70 mg/dl H # 11/09/16 0535 Micro Results: Item Value Date Time Urine Culture - Preliminary Resulted 11/08/16 0930 Urine , Clean Catch NO GROWTH - LESS THAN 1,000 COLONIES/... MRSA DNA Surveillance Screen - Final Complete 11/09/16 0000 Nasal Specimen Negative for MRSA by DNA Probe Assessment & Plan ASSESSMENT: * 65yo female with possible UTI being treated with Vanco + cefepime. Vancomycin dosing is per pharmacy consult. Cefepime dosing per provider. * Urine cultures are negative for microorganism growth. * MRSA nasal swab negative. * Despite these negative factors abx deescalation may not be warranted. Antibiotic regimen is appropriate given recent stent placement and spike in WBC/ ANC. * ID consulted. * Pt with PARI which is improving. Scr close to baseline at 1.2mg/dl today ( baseline 0.9-1.2mg/dl) * Will change from one time empiric dosing of vancomycin to scheduled dosing per patient specific PK data. Will check trough level early/prior to steady state given unstable renal function and to ensure therapeutic levels with increasing infectious markers. * Calc PK parameters: ke(est) ~ 0.038h-1 T1/2(est) ~ 18hrs Vd ~ 0.65L/kg * With continued improvement in Scr/CrCl possibility of subtherapetuc levels with daily random levels/vancomycin dosing. * Random vancomycin level this morning is therapeutic at 14.4mcg/ml * Indicates safe and appropriate to re-dose vancomycin BRANDI. * Goal trough level estimate: between 10 - 20 mcg/mL until cultures/ sensitivities indicate otherwise PLAN: * Start scheduled vancomycin dosing with Vancomycin 1,000mg (~15mg/kg) IV Q18hrs * Check Vancomycin trough level prior to the 2200 dose * Will continue to adjust dosing to maintain vancomycin trough level 10-20mcg/ ml (goal is ~15mcg/ml) * Continue cefepime per provider (not a pharmacy consult) Pharmacy will continue to follow and will adjust dose/frequency as necessary. Thank you
--- NOTE | 2016-11-10 10:59 | Progress Note ---
Progress Note Date of Service Nov 10, 2016. Progress Note ID Consult Dictated [id number] A/P: 1. Leukocytosis -Suspect multi factorial, ca, steroids for gout, ? uti s/p stent placement -will repeat urine culture, check blood culture as well -No evidence for pna, c diff, infected port, septic joint -Would continue emperic abx for total 7 days for ? uti with recent stent placement. If to be d/c prior, would change to augmentin to complete course -follow cbc -thank you
[2016-11-10] MEDS ORDERED: MoRPHine SULFATE 4 MG/ML 1 ML CARP\\VIAL IV PRN (11:00)
[2016-11-10] MEDS: VANCOMYCIN INJ 1,000 MG in SODIUM CHLORIDE 0.9% 250ML 250 ML IV SCH (11:10)
[2016-11-10] MEDS: ENOXAPARIN 60 MG/0.6 ML SYR SQ SCH ×2 (11:14→21:03)
[2016-11-10] MEDS: MAGNESIUM SULFATE 1GM / D5W 1 GM in PREMIXED IN D5W 100 ML IV SCH ×2 (11:14→12:35)
[2016-11-10] MEDS: OXYBUTYNIN CHLORIDE 5 MG TAB PO PRN ×2 (11:18→21:02)
[2016-11-10 11:26] VITALS: BP 171/77; PULSE 96; TEMP 36.7; O2SAT 94
--- NOTE | 2016-11-10 12:03 | INFECT. DISEASE CONSULTATION ---
DATE OF CONSULTATION: 11/10/2016 REQUESTING PHYSICIAN: Dr. Vallejo. HISTORY OF PRESENT ILLNESS: This is a 65-year-old female who was admitted from her cancer center secondary to hyponatremia. Her is present with her and helps provide her history. They states that she was having poor p.o. intake and they feel that this was the reason for her hyponatremia. She has a diagnosis of stage IV endometrial cancer which was previously treated with chemotherapy. She states her last treatment was June 15. Unfortunately, she was to restart chemo and was undergoing her preparation for going this when she was found to be hyponatremic. She also had a complication of hydronephrosis and bulking of her tumor around the right ureter and a stent was placed as an outpatient last week by urology. She had a significant right-sided flank and lower extremity pain. A CAT scan of the abdomen and pelvis was performed upon arrival to the hospital on the which did show the right stent to be in place, there was moderate hydronephrosis on the right and vaginal cuff was noted. She has been afebrile since admission to the hospital. She was started empirically on vancomycin and cefepime and she remains on this. A urinalysis done in the Emergency Room had +2 bacteria and greater than 30 wbc's; however, a urine culture obtained at the time of admission was negative. She denies being on any antibiotics prior to this admission. Her white blood cell count when she presented to the hospital was 22.3 and this has increased to 30.8 this morning. She also was recently diagnosed as an outpatient with gout of the right first toe. She was given colchicine and prednisone prior to admission. She currently is on IV Solu-Medrol and states that this has resolved. She has some intermittent pain in the right foot but states overall this is significantly improved. She has had an episode of gout in this area 2 previous times. She denies any fevers or chills at home. She does have a port on the right chest wall which was placed in January of 2016. She has had no difficulty with this port and denies any history of infection. Blood cultures were obtained upon admission. She currently denies any fevers or chills. She denies any headache. She denies any cough, shortness of breath, chest pain or wheezing. She denies any nausea, vomiting or diarrhea. She does have some intermittent abdominal pain which is chronic. Her p.o. intake overall is poor. She does still have some right-sided pain; however, she states this has improved significantly. Yesterday she states she had a significant pain, but her pain regimen has been adjusted with success. She denies any swelling or erythema of the right foot. This is much improved from admission. She is making urine and denies any bleeding, urgency, frequency or dysuria. All remaining review of systems are reviewed and are negative. She is tolerating her antibiotics well. PAST MEDICAL HISTORY: Significant for GERD with Morton esophagus, endometrial cancer diagnosed in 2016 status post chemo, history of PE, hyperlipidemia, anemia, and B12 deficiency. PAST SURGICAL HISTORY: Significant for hysterectomy and oophorectomy secondary to endometrial cancer, tumor debulking surgery, knee surgery and a right ureteral stent done just last week. FAMILY HISTORY: Noncontributory. SOCIAL HISTORY: Negative for tobacco use or drug use. She is . She has 2 children. She drinks occasionally. She denies any recent sick contacts. ALLERGIES: She has no known drug allergies. CURRENT MEDICATIONS: Include Neurontin, morphine, Lovenox, magnesium, vancomycin, oxycodone, heparin, Lexapro, multivitamins, Protonix, prednisone, MiraLax, cefepime, Colace, Imodium, Tylenol, Maalox, milk of magnesia, Zofran, albuterol, Xanax Ditropan and Restoril. PHYSICAL EXAMINATION: VITAL SIGNS: She is afebrile and has been since admission to the hospital, pulse is 86, respiratory rate is 16, blood pressure is 168/81 and oxygen saturation is 93-97% on room air. GENERAL: She is awake, alert and oriented x3. She is in no acute distress. HEENT: Mucous membranes are moist. Extraocular muscles are intact. HEART: Regular. LUNGS: Clear bilaterally. ABDOMEN: Soft and nondistended. EXTREMITIES: There is no lower extremity edema bilaterally. SKIN: Without rash. Examination of the right foot reveals minimal edema around the right MTP; however, there is no erythema, tenderness, warmth or induration, port is in the right chest wall. Her dressing is clean, dry and intact. There is no surrounding erythema, edema, warmth or induration. LABORATORY STUDIES: CBC today reveals a white blood cell count of 30.8 up from 19.3 on the , hemoglobin is 7.9, hematocrit 23.3 and platelets are 189. Chemistry panel reveals a sodium of 137, potassium 4.0, chloride 101, bicarbonate 25, BUN 22; creatinine 1.2, improved from a 2.2 on admission. Glucose is 105. Urinalysis done on the shows trace protein, +2 blood, moderate leukocyte esterase, greater than 30 wbc's, 5-10 rbc's, greater than 30 epithelial cells and +2 bacteria. Vancomycin level done today is 14.4. A urine culture from the is negative. No blood cultures have been obtained. IMAGING DATA: As previously reviewed. ASSESSMENT AND PLAN: 1. Leukocytosis. This is likely multifactorial considering her history of stage IV cancer and steroid use, both inpatient and prior to her admission for treatment of gout. She does have a new stent which was placed, although there is no clear indication of urinary tract infection based on her negative urine culture on admission and denial of previous antibiotics, I would prefer to treat with a course of antibiotics empirically to avoid any infection of her stent. She is not having diarrhea and I would not recommend testing for C. diff at this time. I would remain on her current antibiotics for a total of 7 days. Blood and urine cultures will be repeated at this time. Her initial urinalysis had greater than 30 epithelial cells, which may be contributing to the amount of bacteria; however, repeat studies will be done today. Thank you for this consultation.
[2016-11-10 15:37] VITALS: BP 145/79; PULSE 92; TEMP 36.8; O2SAT 94
[2016-11-10 19:07] VITALS: BP 146/73; PULSE 97; TEMP 36.6; O2SAT 91
[2016-11-10] MEDS: TEMAZEPAM 15 MG CAP PO PRN (21:02)
[2016-11-10 23:14] VITALS: BP 135/78; PULSE 105; TEMP 36.8; O2SAT 91
[2016-11-11] VITALS (7 sets, daily range): BP systolic 121–159; BP diastolic 65–87; PULSE 88–118; TEMP 36.6–37.1; O2SAT 91–97; BMI 22.2
[2016-11-11] MEDS: OXYCODONE HCL IR 5 MG TAB (IMMEDIATE RELEASE) PO PRN ×4 (01:38→22:11)
[2016-11-11] MEDS: VANCOMYCIN INJ 1,000 MG in SODIUM CHLORIDE 0.9% 250ML 250 ML IV SCH (05:17)
[2016-11-11 06:30] LABS: HEMATOCRIT 23.3 % (37-47); MEAN CELL VOLUME 96.3 fL (80-100); MEAN CORPUSCULAR HEMOGLOBIN 32.2 pg (25-34); MEAN CORPUSCULAR HGB CONC 33.5 g/dl (32-36); MEAN PLATELET VOLUME 10.8 fL (7.4-10.4); PLATELET COUNT 193 K/uL (130-400); RED BLOOD COUNT 2.42 M/uL (4.2-5.4)
[2016-11-11 06:57] LABS: BASO % 0.1 %; BASO ABS # 0.02 K/uL (0-0.2); COMPLETE YES; EOS % 1.9 %; IG% 0.8 %; LYMPH % 3.9 %; LYMPH ABS # 1.24 K/uL (1.2-3.4); MONO % 3.7 %; NEUT % 89.6 %
[2016-11-11 07:02] LABS: BUN/CREATININE RATIO 16.1 (10-20); CREATININE 0.99 mg/dl (0.60-1.20); MAGNESIUM 1.9 mg/dl (1.8-2.4); POTASSIUM 3.7 mmol/L (3.5-5.1)
--- NOTE | 2016-11-11 09:42 | Progress Note ---
Subjective Date of Service: Nov 11, 2016. Subjective Pt evaluation today including: conversation w/ patient, conversation w/ family (), physical exam, lab review, review of studies, conversation w/ internal audit consultant (Dr. Saxena), review of inpatient medication list Did not sleep well overnight again. Still with right groin to leg pains. No chest pain , no sob. TOlerating some po intake. Problem List Medical Problems: (1) Cervical radiculopathy Status: Acute (2) Dyspnea on exertion Status: Acute (3) Hydronephrosis Status: Acute (4) Precordial chest pain Status: Acute (5) Recurrent carcinoma of endometrium Status: Acute (6) Right sided abdominal pain Status: Acute (7) Ureteral obstruction, right Status: Acute Review of Systems All Other Systems: Reviewed and Negative Medications Acetaminophen (Tylenol Tab) 650 mg Q4H PRN PO; Start 11/07/16 at 17:30; Stop 12/07/16 at 17:29 Al Hydrox/Mg Hydrox/Simethicone (Maalox Max Susp) 15 ml Q4H PRN PO; Start 11/07 at 17:30; Stop 12/07/16 at 17:29 Albuterol (Ventolin Hfa Inhaler) 2 puffs Q6H PRN INH; Start 11/07/16 at 17:30; Stop 12/07/16 at 17:29 Alprazolam (Xanax Tab) 0.5 mg Q6H PRN PO Last administered on 11/09/16 19:35; Admin Dose 0.5 MG; Start 11/07/16 at 17:30; Stop 12/07/16 at 17:29 Cefepime HCl/ Dextrose (Maxipime IV/D5 100ml) 111.3 ml @ 200 mls/hr Q12 IV Last administered on 11/11/16 10:13; Admin Dose 200 MLS/HR; Start 11/07/16 at 21:00; Stop 11/17/16 at 20:59 Docusate Sodium (coLACE CAP) 100 mg BID PO Last administered on 11/11/16 10:05 ; Admin Dose 100 MG; Start 11/07/16 at 20:45; Stop 12/07/16 at 20:44 Enoxaparin Sodium (Lovenox Inj) 60 mg BID@1000,2200 SQ Last administered on 11/11 10:05; Admin Dose 60 MG; Start 11/10/16 at 10:30; Stop 12/10/16 at 10:29 Escitalopram Oxalate (Lexapro Tab) 10 mg QAM PO Last administered on 11/11/16 10:04; Admin Dose 10 MG; Start 11/08/16 at 08:00; Stop 12/08/16 at 07:59 Fentanyl (Duragesic Patch) 25 mcg Q3D@1000 TD Last administered on 11/11/16 10: 06; Admin Dose 25 MCG; Start 11/11/16 at 10:00; Stop 11/25/16 at 09:59 Gabapentin 300 mg 300 mg TID PO Last administered on 11/11/16 10:05; Admin Dose 300 MG; Start 11/10/16 at 14:00; Stop 12/10/16 at 13:59 Heparin Sodium (Porcine) (Heparin 100 Unit/ml 5ml Flush) 5 ml PRN PRN IV Last administered on 11/09/16 11:38; Admin Dose 5 ML; Start 11/09/16 at 01:00; Stop 12/09/16 at 00:59 Loperamide HCl (Imodium Cap) 2 mg DAILY PRN PO; Start 11/07/16 at 18:15; Stop 12/07/16 at 18:14 Magnesium Hydroxide (Milk Of Magnesia Susp) 30 ml Q6H PRN PO; Start 11/07/16 at 17:30; Stop 12/07/16 at 17:29 Miscellaneous (Fentanyl Patch Remove & Waste) 1 ea Q3D@0959 N/A; Start 11/14/16 at 09:59; Stop 12/14/16 at 09:58 Miscellaneous Information (Check Fentanyl Patch Placement) 1 ea QS N/A; Start at 16:00; Stop 12/11/16 at 15:59 Morphine Sulfate (MoRPHine SULFATE INJ) 4 mg Q4H PRN IV Last administered on 06:39; Admin Dose 4 MG; Start 11/10/16 at 11:00; Stop 11/24/16 at 10:59 Multivitamins (Multivitamin Tab) 1 tab QAM PO Last administered on 11/11/16 10: 04; Admin Dose 1 TAB; Start 11/08/16 at 08:00; Stop 12/08/16 at 07:59 Ondansetron HCl (Zofran Inj) 4 mg Q6H PRN IV Last administered on 11/10/16 08: 04; Admin Dose 4 MG; Start 11/07/16 at 17:30; Stop 12/07/16 at 17:29 Oxybutynin Chloride (Ditropan Tab) 5 mg TID PRN PO Last administered on 10:04; Admin Dose 5 MG; Start 11/07/16 at 17:30; Stop 12/07/16 at 17:29 Oxycodone HCl (Roxicodone Immediate Rel Tab) `1-2 tabs for pain 1 tab ... Q4H PRN PO Last administered on 11/11/16 10:06; Admin Dose 10 MG; Start 11/09/16 at 09:00; Stop 11/23/16 at 08:59 Pantoprazole Sodium (Protonix Tab) 40 mg QAM PO Last administered on 11/11/16 10:05; Admin Dose 40 MG; Start 11/08/16 at 08:00; Stop 12/08/16 at 07:59 Polyethylene 17 gm 17 gm DAILY PO Last administered on 11/11/16 10:05; Admin Dose 17 GM; Start 11/08/16 at 08:00; Stop 12/08/16 at 07:59 Prednisone (PredniSONE TAB) 20 mg QAM PO Last administered on 11/11/16 10:04; Admin Dose 20 MG; Start 11/08/16 at 08:00; Stop 12/08/16 at 07:59 Temazepam (Restoril Cap) 15 mg HS PRN PO Last administered on 11/10/16 21:02; Admin Dose 15 MG; Start 11/07/16 at 17:30; Stop 12/07/16 at 17:29 Vancomycin HCl (Consult) 1 ea UD PRN N/A; Start 11/08/16 at 10:00; Stop at 09:59 Vancomycin HCl/ Sodium Chloride (Vancomycin Inj/ Nss 250ml) 270 ml @ 125 mls/ hr Q18H IV Last administered on 11/11/16 05:17; Admin Dose 125 MLS/HR; Start at 10:00; Stop 11/20/16 at 09:59 Objective Vital Signs Date Time Temp Pulse Resp B/P Pulse Ox O2 Delivery O2 Flow Rate FiO2 11/11/16 07:36 36.8 109 16 159/81 92 Room Air 11/11/16 04:18 37.1 118 20 157/84 92 Room Air 11/11/16 00:01 Room Air 11/10/16 23:14 36.8 105 18 135/78 91 Room Air 11/10/16 19:07 36.6 97 18 146/73 91 Room Air 11/10/16 16:00 Room Air 11/10/16 15:37 36.8 92 18 145/79 94 Room Air 11/10/16 11:26 36.7 96 16 171/77 94 Room Air Physical Exam Comments: nad, aox3, conjunctival pallor s1 s2 rrr, no murmurs appreciated ctab no w/r/r abd soft nt/nd +BS no LE edema right chest port c/d/i no erythema/drainage Laboratory Results Last 24 Hours Test 11/11/16 05:26 White Blood Count 31.50 K/uL Red Blood Count 2.42 M/uL Hemoglobin 7.8 g/dL Hematocrit 23.3 % Mean Corpuscular Volume 96.3 fL Mean Corpuscular Hemoglobin 32.2 pg Mean Corpuscular Hemoglobin Concent 33.5 g/dl Platelet Count 193 K/uL Mean Platelet Volume 10.8 fL Neutrophils (%) (Auto) 89.6 % Lymphocytes (%) (Auto) 3.9 % Monocytes (%) (Auto) 3.7 % Eosinophils (%) (Auto) 1.9 % Basophils (%) (Auto) 0.1 % Neutrophils # (Auto) 28.23 K/uL Lymphocytes # (Auto) 1.24 K/uL Monocytes # (Auto) 1.17 K/uL Eosinophils # (Auto) 0.60 K/uL Basophils # (Auto) 0.02 K/uL RDW Standard Deviation 56.9 fL RDW Coefficient of Variation 16.3 % Immature Granulocyte % (Auto) 0.8 % Immature Granulocyte # (Auto) 0.24 K/uL Nucleated RBC Absolute Count (auto) 0.04 K/uL Nucleated Red Blood Cells % 0.1 % Sodium Level 139 mmol/L Potassium Level 3.7 mmol/L Chloride Level 102 mmol/L Carbon Dioxide Level 29 mmol/L Anion Gap 8.0 mmol/L Blood Urea Nitrogen 16 mg/dl Creatinine 0.99 mg/dl Est Creatinine Clear Calc Drug Dose 52.3 ml/min Estimated GFR () 68.8 Estimated GFR (Non- 59.4 BUN/Creatinine Ratio 16.1 Random Glucose 92 mg/dl Calcium Level 9.0 mg/dl Magnesium Level 1.9 mg/dl Assessment and Plan 1. PARI - baseline appears to be 0.9-1.2 - recent right stent fr right hydro which is unchanged or slightly improved based on renal US, left collecting duct fullness/mild hydro also seen on CT - multifactorial with volume depletion + UTI + ATN - resolved with volume repletion/IVF - encourage adequate po intake/oral hydration 2. Hyponatremia - hx and urine lytes consistent with pre-renal etiology - now normal range 3. Possible UTI - UCx not growing microorganisms however this sample was sent after patient was already on abx - worsening leukocytosis may also be related to steroids, recent gout - afebrile - may switch to augmentin to complete 7-day course 4. Gout - multiple episodes of gout - not on maintenance as outpatient - currently on prednisone, will taper rapidly 5. h/o PE - cont lovenox - will give BID dosing with improving renal function
[2016-11-11] MEDS ORDERED: FENTANYL 25 MCG/HR TDSY TD SCH (10:00)
[2016-11-11] MEDS: MULTIVITAMIN TAB PO SCH (10:04)
[2016-11-11] MEDS: ESCITALOPRAM OXALATE 10 MG TAB PO SCH (10:04)
[2016-11-11] MEDS: OXYBUTYNIN CHLORIDE 5 MG TAB PO PRN (10:04)
[2016-11-11] MEDS: PANTOprazole SOD 40 MG TAB PO SCH (10:05)
[2016-11-11] MEDS: POLYETHYLENE (MIRALAX) 17 GM PACK PO SCH (10:05)
[2016-11-11] MEDS: DOCUSATE SODIUM 100 MG CAP PO SCH ×2 (10:05→20:00)
[2016-11-11] MEDS: GABAPENTIN 300 MG CAP PO SCH ×3 (10:05→20:00)
[2016-11-11] MEDS: ENOXAPARIN 60 MG/0.6 ML SYR SQ SCH ×2 (10:05→22:11)
[2016-11-11] MEDS: CEFEPIME IV 1,000 MG in DEXTROSE 5% 100ML 100 ML IV SCH ×2 (10:13→21:00)
[2016-11-11] MEDS: CHECK FENTANYL PATCH PLACEMENT SCH ×2 (16:33→22:09)
[2016-11-11] MEDS ORDERED: VANCOMYCIN TROUGH SCH (21:30)
[2016-11-11] MEDS: TEMAZEPAM 15 MG CAP PO PRN (22:11)
[2016-11-11] MEDS: ALPRAZOLAM 0.5 MG TAB PO PRN (22:11)
[2016-11-12] MEDS: OXYCODONE HCL IR 5 MG TAB (IMMEDIATE RELEASE) PO PRN ×3 (01:24→07:40)
[2016-11-12] MEDS: ALPRAZOLAM 0.5 MG TAB PO PRN (03:25)
[2016-11-12 06:17] LABS: HEMATOCRIT 22.7 % (37-47); MEAN CELL VOLUME 96.6 fL (80-100); MEAN CORPUSCULAR HEMOGLOBIN 31.5 pg (25-34); MEAN CORPUSCULAR HGB CONC 32.6 g/dl (32-36); MEAN PLATELET VOLUME 10.7 fL (7.4-10.4); PLATELET COUNT 182 K/uL (130-400); RED BLOOD COUNT 2.35 M/uL (4.2-5.4); WHITE BLOOD COUNT 29.36 K/uL (4.8-10.8)
[2016-11-12 06:27] VITALS: Ht 167.6 cm; Wt 60.8 kg
[2016-11-12 06:36] LABS: BASO % 0.1 %; BASO ABS # 0.02 K/uL (0-0.2); COMPLETE YES; EOS % 2.4 %; IG% 0.9 %; LYMPH % 2.9 %; LYMPH ABS # 0.85 K/uL (1.2-3.4); MONO % 5.2 %; NEUT % 88.5 %
[2016-11-12 07:24] VITALS: BP 158/81; PULSE 107; TEMP 36.9; O2SAT 95
[2016-11-12] MEDS: CHECK FENTANYL PATCH PLACEMENT SCH (07:40)
[2016-11-12] MEDS: GABAPENTIN 300 MG CAP PO SCH (07:40)
[2016-11-12] MEDS: PANTOprazole SOD 40 MG TAB PO SCH (07:40)
[2016-11-12] MEDS: DOCUSATE SODIUM 100 MG CAP PO SCH (07:40)
[2016-11-12] MEDS: MULTIVITAMIN TAB PO SCH (07:40)
[2016-11-12] MEDS: ESCITALOPRAM OXALATE 10 MG TAB PO SCH (07:40)
[2016-11-12] MEDS: OXYBUTYNIN CHLORIDE 5 MG TAB PO PRN (07:40)
[2016-11-12] MEDS: POLYETHYLENE (MIRALAX) 17 GM PACK PO SCH (07:40)
--- NOTE | 2016-11-12 07:43 | Discharge Instructions ---
Discharge Instructions Date of Service Nov 12, 2016. Admission Reason for Admission: Endometrial Carcinoma Discharge Discharge Diagnosis / Problem: UTI, hyponatremia Discharge Goals Goal(s): Decrease discomfort, Increase independence, Improve disease control Activity Recommendations Activity Limitations: resume your previous activity . Current Hospital Diet Patient's current hospital diet: Regular Diet Discharge Diet Recommended Diet: Regular Diet Pending Studies Studies pending at discharge: no Laboratory Results Lipid Panel Test 08/29/16 09:45 Range/Units Triglycerides Level 160 H 0-150 mg/dl Cholesterol Level 179 0-200 mg/dl HDL Cholesterol 70 mg/dl Cholesterol/HDL Ratio 2.6 LDL Cholesterol, Calculated 77 mg/dl Medical Emergencies . Who to Call and When: Medical Emergencies: If at any time you feel your situation is an emergency, please call 911 immediately. . Non-Emergent Contact Non-Emergency issues call your: Primary Care Provider, Oncologist, Specialist ( Palliative/Pain management) Call Non-Emergent contact if: you have a fever, your pain is not controlled . . "Provider Documentation" section prepared by Eleanor Alfaro. . VTE Core Measure Inpt VTE Proph given/why not?: Enoxaparin (Lovenox)SQ
[2016-11-12] MEDS ORDERED: DRGTP25 TD ×2 (07:45)
[2016-11-12] MEDS ORDERED: AMOX875T PO ×2 (07:45)
[2016-11-12 09:02] VITALS: BP 158/81; PULSE 107; TEMP 36.9; O2SAT 95
[2016-11-12] MEDS ORDERED: RXC5 PO ×2 (09:19)
--- NOTE | 2016-11-12 09:28 | Discharge Summary ---
Discharge Summary Date of Service Nov 12, 2016. Discharge Summary Admission Date: Nov 07, 2016 at 15:56 Discharge Date: Nov 12, 2016 Discharge Disposition: Home with services Principal Diagnosis: UTI Medication Reconciliation New Medications: Amoxicillin & Pot Clavulanate (Augmentin 875-125 mg) 1 Tab Tab 875 MG PO BID for 2 Days, #4 TAB Fentanyl (Fentanyl) 25 Mcg Tdsy 25 MCG TD Q3D@1000 for 30 Days Oxycodone HCl (Oxycodone HCl) 5 Mg Tab 5-10 MG PO Q4H PRN for pain, #20 TAB Continued Medications: Albuterol Hfa (Ventolin Hfa) 200 Puffs/46338 Mcg Aers 2-4 PUFFS INH Q6H, #1 INHALER Alprazolam (Xanax) 0.5 Mg Tab 0.5 MG PO DAILY PRN for Anxiety Atorvastatin (Lipitor) 10 Mg Tab 10 MG PO QAM, TAB Biotin (Biotin) 2,500 Mcg Cap 2500 MCG PO QAM Calcium Citrate-Vitamin D (Calcium Citrate + D) 1 Tab Tab 2 TAB PO QAM Cyanocobalamin (Vitamin B12) 1,000 Mcg Tab 46429 MCG PO QAM Enoxaparin (Lovenox) 80 Mg/0.8 Ml Inj 80 MG SQ DAILY@1400 for 15 Days, #30 DOSE Escitalopram (Lexapro) 10 Mg Tab 10 MG PO QAM, TAB Gabapentin (Gabapentin) 300 Mg Cap 300 MG PO TID for 30 Days, #90 CAP Loperamide Hcl (Imodium) 2 Mg Cap 2 MG PO DAILY PRN for DIARRHEA Magnesium Oxide (Mag-Ox) 400 Mg Tab 400 MG PO DAILY, TAB Multiple Vitamin (Multivitamin) 1 Tab Tab 1 TAB PO QAM, TAB Omeprazole (Prilosec) 20 Mg Capcr 20 MG PO QAM, CAP Oxybutynin Chloride (Oxybutynin Chloride) 5 Mg Tab 5 MG PO TID PRN for Bladder spasm/stent irritation for 30 Days, #90 TAB Oxycodone HCl (Oxycontin) 10 Mg Tabcr 10 MG PO TID for 7 Days, #21 Oxycodone Hcl (Oxycodone Hcl) 5 Mg Cap 5-10 MG PO Q4H PRN for Breakthrough Pain for 7 Days, #42 TABS Probiotic Product (Probiotic & Acidophilus F) 1 Cap Cap 1 CAP PO QAM Prochlorperazine Maleate (Prochlorperazine Maleate) 10 Mg Tab 10 MG PO UD PRN for Nausea, #30 Psyllium (Metamucil) 0.52 Gm Cap 2 CAP PO DIRECTED 2 capsules in the Am around 10 AM and may take 2 capsules in the aternoon Temazepam (Restoril) 15 Mg Cap 15 MG PO HS PRN for Sleep Hospital Course 65yo female with progressive, now stage 4 endometrial cancer who presents as a direct admission from the [facility] due to hyponatremia. She underwent a right sided ureteral stent placement last week by Dr. Mesfin Kirkland due to an obstructed right ureter from her endometrial cancer/pelvic lymphadenopathy. When she left the hospital on she was having significant pain in the right abdomen. There was also pain in the right hip and right leg on the anterior thigh. The right sided abdominal pain is markedly better than last week. During the weekend, however, she developed what she thought was "gout" in the entire right leg and right foot. She had some numbness in the right leg as well. She particularly had severe pain in the right great toe and right ankle. Colchicine was called in by her PCP's office over the weekend and this helped her right foot/ankle pain. She has had poor appetite since being released from the hospital last week. No fevers or chills. She has felt quite fatigued and reports she was mildly confused during the weekend. Today she was to start on a new chemotherapy regimen in the Cancer Center and unfortunately pre-treatment blood work showed acute renal failure & hyponatremia thus prompting her admission to the hospital. On admission, she was started on antibiotics. UA was positive for LE and pyuria however, a UCX was sent only after she had antibiotics for ~12hrs. SHe was treated for complicated UTI in view of recent instrumentation. UCx came back with <1,000 colonies, however, with ID guidance, they've recommended 7-day course of antibiotic (cefepime for 5 days, unasyn for 2 more days). She was also found to have hyponatremia of 124 and PARI with creat 2.2 and AMS. Metabolic encephalopathy was thought to be due to her UTI along with gabapentin in setting of PARI. We initially decreased the dose of her gabapentin and she was given IV fluid boluses and maintenance. Her sodium improved slowly and remained normal prior to discharge. Her creat also improved and was at baseline on discharge. She did complain of significant pain in her gluteal area. I did discuss this with Dr. Saxena and we increased her fentanyl patch from 12.5 to 25mg with good outcome. She will be sent home with as needed oxycodone as well. She will f/u with Dr. Zamarripa for pain management, Dr. Huff for UTI and possible gout maintenance medication. She will also f/u with her oncologist for cancer treatments. On day of discharge, her pain was better controlled. No chest pain, no sob. TOlerating po intake. Vital Signs Date Time Temp Pulse Resp B/P Pulse Ox O2 Delivery O2 Flow Rate FiO2 11/12/16 09:02 36.9 107 18 95 Room Air 11/12/16 07:24 158/81 nad, aox3, anicteric s1 s2 rrr, no murmurs appreciated ctab no w/r/r abd soft n/nd +BS right chest port dressing c/d/i, no erythema and no drainage 1. PARI - now at baseline appears to be 0.9-1.2 - recent right stent fr right hydro which is unchanged or slightly improved based on renal US, left collecting duct fullness/mild hydro also seen on CT - multifactorial with volume depletion + UTI + ATN - resolved with volume repletion/IVF - encourage adequate po intake/oral hydration 2. Hyponatremia - hx and urine lytes consistent with pre-renal etiology - now normal range 3. Possible UTI - UCx not growing microorganisms however this sample was sent after patient was already on abx - worsening leukocytosis may also be related to steroids, recent gout - afebrile - switch to augmentin to complete 7-day course 4. Gout - multiple episodes of gout - finished short course steroids - will likely require gout maintenance, defer to PCP 5. h/o PE - cont lovenox - will give BID dosing with improving renal function Total Time Spent: Greater than 30 minutes This includes examination of the patient, discharge planning, medication reconciliation, and communication with other providers. Discharge Instructions Please refer to the electronic Patient Visit Report (Discharge Instructions) for additional information. Additional Copies To Zeke Huff M.D.; Upendra. Saxena M.D.
[2016-11-13] MEDS ORDERED: WARF5TAB7 (12:44)
[2016-11-14] MEDS ORDERED: FENTANYL PATCH REMOVE & WASTE SCH (09:59)
== END 2016-11-12 11:13 | disposition home health service (06) | DRG 682 ==
LOC: C.4E 15:56
PROVIDERS: ADMIT Internal Medicine; ATTEND Internal Medicine
DX: N17.0 Acute kidney failure with tubular necrosis (principal); G93.41 Metabolic encephalopathy; N39.0 Urinary tract infection, site not specified; E87.1 Hypo-osmolality and hyponatremia; C54.1 Malignant neoplasm of endometrium; K21.9 Gastro-esophageal reflux disease without esophagitis; K22.70 Barrett's esophagus without dysplasia; E87.6 Hypokalemia; D64.9 Anemia, unspecified; M10.9 Gout, unspecified; N13.30 Unspecified hydronephrosis; Z86.711 Personal history of pulmonary embolism; Z79.899 Other long term (current) drug therapy; Z79.01 Long term (current) use of anticoagulants